=== PATIENT | female | born 1950 | race Hispanic/Latino ===

== ENCOUNTER 2023-03-09 15:56 | Emergency (ER) | payer OTHER ==
[2023-03-09 17:20] LABS: Absolute Lymphocytes (CBC) 1.7 K/uL (0.7-4.9); Hematocrit 38.9 % (36.0-45.0); Lymphocytes % 23.8 % (15.3-44.8); MCV 88.5 fL (80-100); Platelets 151 thou/uL (152-406)
[2023-03-09] MEDS ORDERED: Magnesium Sulfate 2gm IVPB 2 G/50 ML BAG IV ONE ×2 (17:25→19:43)
[2023-03-09 17:46] LABS: Albumin 3.4 g/dL (3.4-5.0); Potassium 3.4 mEq/L (3.5-5.1)
[2023-03-09 17:48] LABS: Magnesium 0.8 mg/dL (1.6-2.4)
--- NOTE | 2023-03-09 19:48 | ER ---
Nurse's Notes [facility] Name: Madison Ruiz Age: 72 yrs Sex: Female : 1950 Arrival Date: 03/09/2023 Time: 15:56 Bed 14 Private MD: Diagnosis: Hypomagnesemia Presentation: 03/09 16:18 Chief complaint: Patient states: Had blood work done here this morning and was called cm10 by PCP and told to come to the ED for low magnesium. Pt states that she is having some shortness of breath that got worse today. Coronavirus screen: Vaccine status: Patient reports receiving the 2nd dose of the covid vaccine. Client denies travel out of the [place] in the last 14 days. Ebola Screen: Patient denies travel to an Ebola-affected area in the 21 days before illness onset. No symptoms or risks identified at this time. Initial Sepsis Screen: Does the patient meet any 2 criteria? No. Patient's initial sepsis screen is negative. Does the patient have a suspected source of infection? No. Patient's initial sepsis screen is negative. Risk Assessment: Do you want to hurt yourself or someone else? Patient reports no desire to harm self or others. Onset of symptoms was March 09, 2023. 16:18 Method Of Arrival: Wheelchair cm10 16:18 Acuity: JAYE 3 cm10 Triage Assessment: 16:20 General: Appears in no apparent distress. comfortable, Behavior is calm, cooperative. cm10 Pain: Complains of pain in right and left knee. EENT: No deficits noted. No signs and/or symptoms were reported regarding the EENT system. Neuro: No deficits noted. Level of Consciousness is awake, alert, obeys commands, Oriented to person, place, time, situation. Cardiovascular: No deficits noted. Patient's skin is warm and dry. Respiratory: No deficits noted. Airway is patent Respiratory effort is even, unlabored, Respiratory pattern is regular, symmetrical. Historical: - Allergies: 16:20 No Known Allergies; cm10 - PMHx: 16:20 Diabetes mellitus; Hypertensive disorder; cm10 - Immunization history:: Adult Immunizations up to date. - Social history:: Smoking status: Patient denies any tobacco usage or history of. - Family history:: not pertinent. Screenin:22 [facility] ED Fall Risk Assessment (Adult) Score/Fall Risk Level 0 - 2 = Low Risk nj1 Oriented to surroundings, Maintained a safe environment, Hourly rounding (assess needs \T\ fall precautionary measures) done. Abuse screen: Denies threats or abuse. Denies injuries from another. Nutritional screening: No deficits noted. Tuberculosis screening: No symptoms or risk factors identified. Assessment: 17:21 Reassessment: Patient appears in no apparent distress at this time. Patient and/or nj1 family updated on plan of care and expected duration. Pain level reassessed. Patient is alert, oriented x 3, equal unlabored respirations, skin warm/dry/pink. 18:09 Reassessment: Patient appears in no apparent distress at this time. Patient and/or nj1 family updated on plan of care and expected duration. Pain level reassessed. Patient is alert, oriented x 3, equal unlabored respirations, skin warm/dry/pink. 19:09 Reassessment: Patient appears in no apparent distress at this time. Patient and/or nj1 family updated on plan of care and expected duration. Pain level reassessed. Patient is alert, oriented x 3, equal unlabored respirations, skin warm/dry/pink. 19:41 Reassessment: Patient appears in no apparent distress at this time. No changes from km8 previously documented assessment. Patient and/or family updated on plan of care and expected duration. Pain level reassessed. Patient is alert, oriented x 3, equal unlabored respirations, skin warm/dry/pink. General: Appears in no apparent distress. comfortable, Behavior is calm, cooperative, appropriate for age. Pain: Denies pain. Neuro: Level of Consciousness is awake, alert, obeys commands, Oriented to person, place, time, situation. Cardiovascular: Denies chest pain, shortness of breath. Respiratory: Airway is patent Respiratory effort is even, unlabored, Respiratory pattern is regular, symmetrical. 19:49 General: will d/c after magnesium IVPB is complete per MD. km8 20:00 Reassessment: Patient appears in no apparent distress at this time. No changes from km8 previously documented assessment. Patient and/or family updated on plan of care and expected duration. Pain level reassessed. Patient is alert, oriented x 3, equal unlabored respirations, skin warm/dry/pink. 21:17 Reassessment: Patient appears in no apparent distress at this time. No changes from km8 previously documented assessment. Patient and/or family updated on plan of care and expected duration. Pain level reassessed. Patient is alert, oriented x 3, equal unlabored respirations, skin warm/dry/pink. Vital Signs: 16:18 BP 166 / 70; Pulse 83; Resp 18; Temp 97.3; Pulse Ox 98% on R/A; Weight 113.4 kg; Height cm10 5 ft. 3 in. ; Pain 0/10; 18:09 BP 134 / 63; Pulse 71; Resp 16; Pulse Ox 97% on R/A; nj1 19:09 BP 134 / 61; Pulse 70; Resp 17; Pulse Ox 99% on R/A; nj1 19:46 BP 131 / 64; Pulse 69; Resp 19; Pulse Ox 99% on R/A; nj1 20:00 BP 129 / 55; Pulse 70; Resp 16; Pulse Ox 99% on R/A; km8 20:30 BP 131 / 63; Pulse 71; Resp 16; Pulse Ox 99% on R/A; km8 21:00 BP 117 / 57; Pulse 72; Resp 16; Pulse Ox 97% on R/A; km8 16:18 Body Mass Index 44.29 (113.40 kg, 160.02 cm) cm10 16:18 Pain Scale: Adult cm10 ED Course: 16:10 Patient arrived in ED. mg5 16:12 Marquis Wagner MD is Attending Physician. rt 16:20 Triage completed. cm10 16:21 Arm band placed on Patient placed in an exam room, on a stretcher. cm10 16:38 Nirali Shaw, RN is Primary Nurse. nj1 17:09 Inserted saline lock: 20 gauge in left antecubital area, using aseptic technique. aw1 17:09 Initial lab(s) drawn, by al, sent to lab. aw1 17:22 Patient has correct armband on for positive identification. Bed in low position. Call [facility] light in reach. Adult w/ patient. Provided Education on: call light, fall precautions. 19:42 Primary Nurse role handed off by Nirali Shaw, RN km8 19:42 Gloria Rogers, KIM is Primary Nurse. km8 19:42 No provider procedures requiring assistance completed. km8 19:48 Wilmar Gutierrez MD is Referral Physician. rt 21:17 IV discontinued, intact, bleeding controlled, No redness/swelling at site. Pressure km8 dressing applied. Administered Medications: 17:19 Drug: Magnesium Sulfate IVPB 2 grams IVPB once over 2 hrs Route: IVPB; Infused Over: 2 nj1 hrs; Site: left antecubital; 19:08 Follow up: Response: No adverse reaction; IV Status: Completed infusion; IV Intake: nj1 100ml 19:30 Drug: Magnesium Sulfate IVPB 2 grams IVPB once over 2 hrs Route: IVPB; Infused Over: 2 nj1 hrs; Site: left antecubital; 21:17 Follow up: Response: No adverse reaction; IV Status: Completed infusion km8 Medication: 19:42 VIS not applicable for this client. km8 Intake: 19:08 IV: 100ml; Total: 100ml. nj1 Outcome: 19:48 Discharge ordered by MD. rt 21:18 Discharged to home via wheelchair, with family, km8 21:18 Condition: good 21:18 Discharge instructions given to patient, family, Instructed on discharge instructions, follow up and referral plans. Demonstrated understanding of instructions, follow-up care, 21:18 Patient left the ED. km8 Signatures: Marquis Wagner MD MD rt Nirali Shaw RN RN nj1 Calista Galvan RN RN cm10 Romina Sung [facility] Sharmaine Villagran 5 Gloria Rogers RN RN km8
--- NOTE | 2023-03-09 19:48 | EDPHYS ---
Physician Documentation [facility] Name: Madison Ruiz Age: 72 yrs Sex: Female : 1950 Arrival Date: 03/09/2023 Time: 15:56 Bed 14 Private MD: ED Physician Marquis Wagner HPI: 03/09 17:01 This 72 yrs old Female presents to ER via Wheelchair with complaints of rt Abnormal Lab Results. 17:01 Patient presents to the ED with hypomagnesemia and outpatient labs. Patient states that rt she has had intermittent vomiting and decreased appetite over the past several months. Her automatic pattern edger ordered labs, sent her in for low magnesium levels. She does report a generalized fatigue, muscle cramping but denies other acute complaints, symptoms are moderate severity, no other aggravating or getting factors.. Historical: - Allergies: 16:20 No Known Allergies; cm10 - PMHx: 16:20 Diabetes mellitus; Hypertensive disorder; cm10 - Immunization history:: Adult Immunizations up to date. - Social history:: Smoking status: Patient denies any tobacco usage or history of. - Family history:: not pertinent. ROS: 17:01 Cardiovascular: Negative for chest pain, palpitations, and edema, Respiratory: Negative rt for shortness of breath, cough, wheezing, and pleuritic chest pain, MS/Extremity: Negative for injury and deformity, Skin: Negative for injury, rash, and discoloration, Neuro: Negative for headache, weakness, numbness, tingling, and seizure, Psych: Negative for depression, anxiety, suicide ideation, homicidal ideation, and hallucinations, 17:01 Constitutional: Positive for body aches, fatigue, 17:01 Abdomen/GI: Positive for nausea and vomiting, Negative for abdominal pain, Exam: 17:01 Constitutional: This is a well developed, well nourished patient who is awake, alert, rt and in no acute distress. Head/Face: Normocephalic, atraumatic. Chest/axilla: Normal chest wall appearance and motion. Nontender with no deformity. No lesions are appreciated. Cardiovascular: Regular rate and rhythm with a normal S1 and S2. No gallops, murmurs, or rubs. Normal PMI, no JVD. No pulse deficits. Respiratory: Lungs have equal breath sounds bilaterally, clear to auscultation and percussion. No rales, rhonchi or wheezes noted. No increased work of breathing, no retractions or nasal flaring. Abdomen/GI: Soft, non-tender, with normal bowel sounds. No distension or tympany. No guarding or rebound. No evidence of tenderness throughout. Skin: Warm, dry with normal turgor. Normal color with no rashes, no lesions, and no evidence of cellulitis. MS/ Extremity: Pulses equal, no cyanosis. Neurovascular intact. Full, normal range of motion. Neuro: Awake and alert, GCS 15, oriented to person, place, time, and situation. Cranial nerves II-XII grossly intact. Motor strength 5/5 in all extremities. Sensory grossly intact. Cerebellar exam normal. Normal gait. Psych: Awake, alert, with orientation to person, place and time. Behavior, mood, and affect are within normal limits. 18:20 ECG was reviewed by the Attending Physician. rt Vital Signs: 16:18 BP 166 / 70; Pulse 83; Resp 18; Temp 97.3; Pulse Ox 98% on R/A; Weight 113.4 kg; Height cm10 5 ft. 3 in. ; Pain 0/10; 18:09 BP 134 / 63; Pulse 71; Resp 16; Pulse Ox 97% on R/A; nj1 19:09 BP 134 / 61; Pulse 70; Resp 17; Pulse Ox 99% on R/A; nj1 19:46 BP 131 / 64; Pulse 69; Resp 19; Pulse Ox 99% on R/A; nj1 20:00 BP 129 / 55; Pulse 70; Resp 16; Pulse Ox 99% on R/A; km8 20:30 BP 131 / 63; Pulse 71; Resp 16; Pulse Ox 99% on R/A; km8 21:00 BP 117 / 57; Pulse 72; Resp 16; Pulse Ox 97% on R/A; km8 16:18 Body Mass Index 44.29 (113.40 kg, 160.02 cm) cm10 16:18 Pain Scale: Adult cm10 MDM: 16:23 Patient medically screened. rt 19:59 Differential Diagnosis Hypomagnesemia, hypokalemia. Data reviewed: vital signs, nurses rt notes, lab test result(s), EKG. Consideration of Admission/Observation Escalation of care including admission/observation considered. Strongly recommended that the patient stay for further treatment of hypo-[place] anemia, she refuses, she understands that she may not have improvement of her symptoms, also the possibility of dysrhythmia. She will follow-up closely with her automatic pattern edger, strict return precautions were discussed if she changes her mind or if she has worsening symptoms. She does have decision-making capacity. Management of patient was discussed with the following: Radio Frequency Design Engineer: Discussed with the patient's automatic pattern edger, will follow-up patient for labs on Sunday. I considered the following discharge prescriptions or medication management in the emergency department Medications were administered in the Emergency Department. See MAR. Care significantly affected by the following chronic conditions: CKD. Counseling: I had a detailed discussion with the patient and/or guardian regarding the historical points, exam findings, and any diagnostic results supporting the discharge/admit diagnosis, lab results, the need for further work-up and treatment in the hospital. 03/09 16:35 Order name: CBC with Diff; Complete Time: 17:59 rt 03/09 16:35 Order name: CMP; Complete Time: 17:59 rt 03/09 16:35 Order name: Magnesium; Complete Time: 17:59 rt 03/09 17:59 Order name: EKG; Complete Time: 18:33 rt 03/09 17:26 Order name: Labs - recollect needed: LAVENDER TOP ONLY - HEMOLYZED; Complete Time: 17:51hb 03/09 17:59 Order name: EKG - Nurse/Tech; Complete Time: 18:34 rt EC:20 Rate is 78 beats/min. Rhythm is regular, Normal Sinus Rhythm with No ectopy. QRS [place] rt is Normal. ND interval is normal. QRS interval is normal. QT interval is normal. No Q waves. T waves are Inverted in lead III. No ST changes noted. Interpreted by me. Administered Medications: 17:19 Drug: Magnesium Sulfate IVPB 2 grams IVPB once over 2 hrs Route: IVPB; Infused Over: 2 nj1 hrs; Site: left antecubital; 19:08 Follow up: Response: No adverse reaction; IV Status: Completed infusion; IV Intake: nj1 100ml 19:30 Drug: Magnesium Sulfate IVPB 2 grams IVPB once over 2 hrs Route: IVPB; Infused Over: 2 nj1 hrs; Site: left antecubital; 21:17 Follow up: Response: No adverse reaction; IV Status: Completed infusion km8 Disposition Summary: 03/09/23 19:48 Discharge Ordered Notes: Location: Home rt Problem: new rt Symptoms: have improved rt Condition: Fair rt Diagnosis - Hypomagnesemia rt Followup: rt - With: Wilmar Gutierrez MD - When: 2 - 3 days - Reason: Discharge Instructions: - Discharge Summary Sheet rt - Hypomagnesemia rt Forms: - Medication Reconciliation Form rt - Thank You Letter rt - Antibiotic Education rt - Prescription Opioid Use rt - Patient Portal Instructions rt - Leadership Thank You Letter rt Signatures: Dispatcher [employer] EDMarti Rene RN RN Marquis Wagner MD MD rt Nirali Shaw RN RN nj1 Calista Galvan RN RN cm10 Gloria Rogers RN km8
[2023-03-09 21:36] VITALS: TEMP 97.3
[2023-03-09 21:48] VITALS: BP 117/57; O2SAT 97
--- NOTE | 2023-03-13 13:55 | EKG ---
Test Date: 2023-03-09 Test Time: 18:11:15 Lead Mason Tender: ESTER MEASUREMENT RESULTS: Intervals: Rate: 78 AK: 162 QRSD: 88 QT: 408 QTc: 465 [place]: P: 6 AK: 162 QRS: 39 T: -10 INTERPRETIVE STATEMENTS: Normal sinus rhythm Possible Inferior infarct, age undetermined Anterior infarct, age undetermined Abnormal ECG No previous ECG available for comparison Electronically Signed On 03-13-23 13:43:20 EDUCATION DEPARTMENT REGISTRAR by Jaden Kimball
== END 2023-03-09 21:18 | disposition home or self-care (01) ==
LOC: ER 15:56
DX: E83.42 Hypomagnesemia (principal); E11.9 Type 2 diabetes mellitus without complications; I10 Essential (primary) hypertension
CPT/HCPCS: 96365; 93005; 85025; 36415; 83735; 80053; 99284; 96366; J3475 ×2

== ENCOUNTER 2024-02-18 11:55 | Day surgery (SDC) | payer OTHER ==
[2024-02-04 10:19] LABS: Absolute Basophils 0.1 K/uL (0-0.5); Absolute Eosinophils 0.3 K/uL (0-0.5); Absolute Lymphocytes (CBC) 2.1 K/uL (0.7-4.9); Absolute Monocytes 0.7 K/uL (0.1-1.3); Absolute Neutrophil 7.8 K/uL (1.8-8.0); Basophils % 0.9 % (0-1.3); Eosinophils % 3.1 % (0-4.4); Hematocrit 39.7 % (36.0-45.0); Hemoglobin 13.1 g/dL (12.0-15.0); Lymphocytes % 18.7 % (15.3-44.8); MCH 30.2 pg (27.0-35.0); MCV 91.4 fL (80-100); MPV 7.7 fL (7.6-11.3); Monocytes % 6.4 % (3.3-12.3); Neutrophils % 70.9 % (41.7-73.7); Nucleated Red Blood Cells % 0.2 % (0-0); Platelets 192 thou/uL (152-406); RBC Red Blood Cell Count 4.34 M/uL (3.86-4.86); Red Cell Distribution Width 13.7 % (12.1-15.2)
[2024-02-04 10:23] LABS: PT Prothrombin Time 11.7 SECONDS (9.4-12.5); PTT, Activated Partial Thromb 30.5 SECONDS (24.3-36.9); Protime INR 1.05
[2024-02-04 10:31] LABS: Anion Gap 10.1 mEq/L (5.0-15.0); Potassium 3.1 mEq/L (3.5-5.1)
--- NOTE | 2024-02-04 12:13 | EKG ---
Test Date: 2024-02-04 Test Time: 11:31:08 Compliance Engineer: GREYSON MEASUREMENT RESULTS: Intervals: Rate: 74 [place]: 154 QRSD: 82 QT: 402 QTc: 446 [place]: P: 17 [place]: 154 QRS: -38 T: 26 INTERPRETIVE STATEMENTS: Normal sinus rhythm Left axis deviation Inferior infarct, age undetermined Anterior infarct, age undetermined Abnormal ECG Compared to ECG 03/09/2023 18:11:15 Left-axis deviation now present Myocardial infarct finding still present Electronically Signed On 02-04-24 12:12:40 OUTBOARD MOTOR TESTER by Juanpablo Acuña
--- NOTE | 2024-02-04 13:12 | RAD REPORT ---
EXAMINATION: ONE VIEW CHEST XR CLINICAL INDICATION: Female, 73 years old.,PREOP TECHNIQUE: Frontal chest projection is submitted. Examination is limited by patient positioning and t echnique. COMPARISON: 04/30/2023 FINDINGS: The lungs are well inflated. Stable chronic interstitial changes. No new focal airspace opacities. N o pneumothorax or sizable effusion. The heart is normal in size. Mediastinal contours are unremarkable. IMPRESSION: No acute intrathoracic abnormalities. Stable chronic interstitial changes, may represent sequelae of lung fibrosis or COPD.
[2024-02-18] MEDS ORDERED: HEPA 1000U/500MLS 2,000 UNIT/1,000 ML BAG IV ONE (13:16)
[2024-02-18] MEDS ORDERED: MIDAZOLAM HCL 2 MG/2 ML INJ ONE (13:16)
[2024-02-18] MEDS ORDERED: VERAPAMIL HCL 10 MG/4 ML VIAL IV ONE (13:16)
[2024-02-18] MEDS ORDERED: HEPARIN 10,000 UNIT/10 ML VIAL IV ONE (13:16)
[2024-02-18] MEDS ORDERED: ATROPINE SULF 1 MG/10 ML SYR IV ONE (13:16)
[2024-02-18] MEDS ORDERED: LIDOCAINE 1% 20 ML MDV ONE (13:16)
[2024-02-18] MEDS ORDERED: FENTANYL CITR 100 MCG/2 ML ONE (13:17)
[2024-02-18] MEDS ORDERED: TICAGRELOR 90 MG TABLET PO ONE (13:17)
[2024-02-18] MEDS ORDERED: ASPIRIN 325 MG TAB ONE (13:17)
[2024-02-18] MEDS ORDERED: CLOPIDOGREL 75 MG TABLET ONE (13:17)
[2024-02-18] MEDS ORDERED: HEPARIN 5000 UNIT/ML 1 ML VIAL ONE (13:17)
[2024-02-18] MEDS: NA CHLORIDE 0.9% 500 ML ONE (15:17)
[2024-02-18] MEDS: ACETAMINOPHEN 325 MG TABLET ONE (15:55)
[2024-02-18 16:23] VITALS: TEMP 98.6
[2024-02-18 18:02] VITALS: BP 148/76; O2SAT 96
== END 2024-02-18 17:11 | disposition home or self-care (01) ==
LOC: CCL 11:55
PROVIDERS: ADMIT Internal Medicine; ATTEND Internal Medicine
DX: I25.10 Atherosclerotic heart disease of native coronary artery without angina pectoris (principal); I27.20 Pulmonary hypertension, unspecified; I35.1 Nonrheumatic aortic (valve) insufficiency; I10 Essential (primary) hypertension; E78.5 Hyperlipidemia, unspecified; E11.9 Type 2 diabetes mellitus without complications; Z79.899 Other long term (current) drug therapy
CPT/HCPCS: 93005; 85025; 80048; 36415; 85610; 82947; 85730; 71045; 93460; 76937; C1893; Q9966; J1644; J2003; J2250; J3010; J7040; 99152; 99153; J0461

== ENCOUNTER 2024-07-14 15:55 | Inpatient (IN) | payer OTHER ==
[2024-07-14 16:36] LABS: Absolute Basophils 0.1 K/uL (0-0.5); Absolute Eosinophils 0.6 K/uL (0-0.5); Absolute Lymphocytes (CBC) 1.1 K/uL (0.7-4.9); Absolute Monocytes 0.6 K/uL (0.1-1.3); Absolute Neutrophil 5.9 K/uL (1.8-8.0); Eosinophils % 6.8 % (0-4.4); Hematocrit 33.3 % (36.0-45.0); Hemoglobin 10.8 g/dL (12.0-15.0); Lymphocytes % 12.9 % (15.3-44.8); MCH 28.2 pg (27.0-35.0); MCHC 32.6 g/dL (32.0-36.0); MCV 86.7 fL (80-100); MPV 7.4 fL (7.6-11.3); Neutrophils % 72.3 % (41.7-73.7); Nucleated Red Blood Cells % 0.1 % (0-0); Platelets 192 thou/uL (152-406); RBC Red Blood Cell Count 3.84 M/uL (3.86-4.86); Red Cell Distribution Width 16.3 % (12.1-15.2)
[2024-07-14 16:40] LABS: PT Prothrombin Time 12.1 SECONDS (10-13.0); PTT, Activated Partial Thromb 29.8 SECONDS (27.2-37.4); Protime INR 1.06
[2024-07-14 16:57] LABS: AST/SGOT 16 U/L (15-37); Albumin 2.2 g/dL (3.4-5.0); Albumin/Globulin Ratio 0.4 (1.1-1.8); Alkaline Phosphatase 142 U/L (45-117); BUN Blood Urea Nitrogen 50 mg/dL (7-18); Bicarbonate 24 mEq/L (21-32); Bilirubin Direct 0.2 mg/dL (0-0.2); Bilirubin Indirect, Calculated 0.2 mg/dL (0.2-0.8); Bilirubin Total 0.4 mg/dL (0.2-1.0); Globulin 5.3 g/dL (2.3-3.5); Glomerular Filtration Rate 18 ml/min (=/>90); Glucose Level 176 mg/dL (74-106); NT PRO-BNP 2485 pg/mL (<125); Protein, Total 7.5 g/dL (6.4-8.2); Sodium Level 138 mEq/L (136-145); Troponin High Sensitivity 17.1 pg/mL (<58.9)
[2024-07-14 16:59] LABS: ALT/SGPT < 14 U/L (13-56)
[2024-07-14] MEDS ORDERED: FUROSEMIDE 40 MG/4 ML VIAL ONE (17:07)
[2024-07-14] MEDS ORDERED: SOD POLYSTYREN SUL 15 GM/60 ML UCUP ONE (17:38)
--- NOTE | 2024-07-14 17:49 | RAD REPORT ---
EXAMINATION: ONE VIEW CHEST XR CLINICAL INDICATION: Female, 74 years old.,DYSPNEA TECHNIQUE: Frontal chest projection is submitted. Examination is limited by patient positioning and t echnique. COMPARISON: 02/04/2024 FINDINGS: Progressive patchy central predominant airspace opacities with interstitial thickening. Decreased ins piratory effort somewhat limits evaluation. No pneumothorax or sizable effusion. Progressive cardiomegaly. Mediastinal contours are unremarkable. IMPRESSION: Progressive findings concerning for pulmonary edema. Underlying pneumonia cannot be entirely excluded .
--- NOTE | 2024-07-14 17:57 | EDPHYS ---
Physician Documentation [facility] Name: Madison Ruiz Age: 74 yrs Sex: Female : 1950 Arrival Date: 07/14/2024 Time: 15:55 Bed 4 Private MD: ED Physician Daniel Dozier HPI: 07/14 16:36 This 74 yrs old Female presents to ER via Wheelchair with complaints of rn Breathing Difficulty, Edema - swelling. 16:36 The patient has shortness of breath at rest, with light activity. Onset: The rn symptoms/episode began/occurred 2 week(s) ago. Duration: The symptoms are intermittent. The patient's shortness of breath is aggravated by exertion, light activity, talking, walking. Associated signs and symptoms: Pertinent positives: non-productive cough, Pertinent negatives: fever, hemoptysis. Severity of symptoms: At their worst the symptoms were moderate in the emergency department the symptoms are unchanged. The patient has experienced similar episodes in the past. Patient sent in by PCP today for low oxygen and swelling of lower extremities. Patient with a history of pulmonary fibrosis. No known history of atrial fibrillation or congestive heart failure. Patient reports worsening of symptoms over the last 2 weeks with 6-1/2 pound weight gain over that time. PCP prescribed Lasix 20 mg once daily and patient states that she does not feel like she is responding to the Lasix. Denies any fever or chills or infectious symptoms. No chest pain. Worse when she exerts herself.. Historical: - Allergies: 16:15 No Known Allergies; iw - Home Meds: 16:15 gabapentin 300 mg oral capsule 2 times per day [Active]; Lasix 20 mg Oral tablet daily iw [Active]; carvedilol 12.5 mg oral tablet 2 times per day [Active]; losartan 50 mg oral tablet daily [Active]; levothyroxine 88 mcg capsule daily [Active]; Tradjenta 5 mg oral tablet daily [Active]; prednisone 5 mg Oral tablet daily [Active]; clopidogrel 75 mg oral tablet daily [Active]; amlodipine 5 mg tablet daily [Active]; pantoprazole 40 mg oral tablet, delayed release (enteric coated) daily [Active]; aspirin 81 mg Oral capsule daily [Active]; amiloride 5 mg oral tablet daily [Active]; - PMHx: 16:14 diabetes mellitus; Hypertensive disorder; iw - Immunization history:: Adult Immunizations up to date. - Infectious Disease History:: Denies. - Social history:: Smoking status: Patient denies any tobacco usage or history of. - Family history:: not pertinent. - Hospitalizations: : No recent hospitalization is reported. 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 Cardiovascular: Regular rate and rhythm, no JVD. No pulse deficits. Respiratory: Moderate tachypnea, crackles bilaterally MS/ Extremity: Pulses equal, no cyanosis. Neurovascular intact. Full, normal range of motion. Equal circumference. 3+ edema bilateral lower extremity Neuro: Awake and alert, GCS 15 17:38 ECG was reviewed by the Attending Physician. rn Vital Signs: 16:11 BP 143 / 111; Pulse 74; Resp 20 S; Pulse Ox 99% on 4 lpm NC; Weight 108.41 kg; Height 5 iw ft. 3 in. ; Pain 0/10; 18:40 BP 117 / 58; Pulse 77; Resp 20 S; Temp 97.5(TE); Pulse Ox 98% on 3 lpm NC; iw 19:18 BP 160 / 65; Pulse 79; Resp 23; Pulse Ox 96% on 4 lpm NC; al5 20:25 BP 138 / 71; Pulse 67; Resp 18; Pulse Ox 100% on 4 lpm NC; al5 21:00 BP 135 / 44; Pulse 83; Resp 19; Pulse Ox 96% on 4 lpm NC; al5 16:11 Body Mass Index 42.34 (108.41 kg, 160.02 cm) iw 16:11 Pain Scale: Adult iw MDM: 16:00 Medical Screening Exam initiated rn 17:55 Differential diagnosis: Anemia Anxiety Reaction CHF exacerbation, Myocardial Infarction rn pneumonia, Pneumothorax pulmonary edema. Data reviewed: vital signs, nurses notes, lab test result(s), EKG, radiologic studies, plain films, and as a result, I will admit patient. Consideration of Admission/Observation Patient was admitted/placed on observation. Escalation of care including admission/observation considered. Counseling: I had a detailed discussion with the patient and/or guardian regarding the historical points, exam findings, and any diagnostic results supporting the discharge/admit diagnosis, lab results, radiology results, the need for further work-up and treatment in the hospital. Response to treatment: the patient's symptoms have mildly improved after treatment. ED course: Patient with 3+ edema, elevated BNP and pulmonary edema in the setting of chronic kidney disease. Given 40 mg of Lasix with some improvement in respiratory effort. Will admit to hospitalist service for further evaluation.. 07/14 16:07 Order name: BMP; Complete Time: 17:05 07/14 16:07 Order name: Blood Culture Adult (2) 07/14 16:07 Order name: CBC with Diff; Complete Time: 16:49 rn 07/14 16:07 Order name: Hepatic Function; Complete Time: 17:05 rn 07/14 16:07 Order name: NT PRO-BNP; Complete Time: 17:05 rn 07/14 16:07 Order name: PT-INR; Complete Time: 16:49 rn 07/14 16:07 Order name: Ptt, Activated; Complete Time: 16:49 rn 07/14 16:07 Order name: Troponin HS; Complete Time: 17:05 rn 07/14 17:53 Order name: BMP rn 07/14 19:41 Order name: CBC with Automated Diff EDSD 07/14 19:41 Order name: Comprehensive Metabolic Panel EDSD 07/14 19:41 Order name: Magnesium EDMS 07/14 19:41 Order name: Lipid Profile EDMS 07/14 19:41 Order name: Lipid Profile EDMS 07/14 19:41 Order name: Troponin High Sensitivity EDMS 07/14 19:41 Order name: Troponin High Sensitivity EDMS 07/14 19:41 Order name: Troponin High Sensitivity EDMS 07/14 19:41 Order name: Troponin High Sensitivity EDMS 07/14 19:41 Order name: Troponin High Sensitivity EDMS 07/14 19:46 Order name: Potassium EDMS 07/14 16:07 Order name: XRAY CXR (1 view); Complete Time: 17:49 rn 07/14 19:41 Order name: Echo with Doppler EDSD 07/14 19:41 Order name: CONS Physician Consult EDSD 07/14 16:07 Order name: Cardiac monitoring; Complete Time: 16:29 rn 07/14 16:07 Order name: EKG - Nurse/Tech; Complete Time: 16:29 rn 07/14 16:07 Order name: IV Saline Lock; Complete Time: 16:29 rn 07/14 16:07 Order name: Labs collected and sent; Complete Time: 16:29 rn 07/14 16:07 Order name: O2 Per Protocol; Complete Time: 16:29 rn 07/14 16:07 Order name: O2 Sat Monitoring; Complete Time: 16:29 rn EC:38 Rate is 75 beats/min. Rhythm is regular. WI interval is normal. QRS interval is normal. rn QT interval is normal. No Q waves. T waves are Normal. No ST changes noted. Clinical impression: NSR w/ Non-specific ST/T Changes. Interpreted by me. Reviewed by me. Administered Medications: 17:20 Drug: Furosemide IVP 40 mg IVP once; give over 2 minutes Route: IVP; Site: left jb4 antecubital; 20:09 Follow up: Response: No adverse reaction al5 18:40 Drug: Kayexalate PO 30 grams PO once Route: PO; iw 20:09 Follow up: Response: No adverse reaction al5 Disposition Summary: 07/14/24 17:56 Hospitalization Ordered Notes: Hospitalization Status: Inpatient Admission rn Provider: Julio Cesar Perez rn Location: Telemetry/[facility] (Inpatient) rn Condition: Stable rn Problem: an ongoing problem rn Symptoms: have improved rn Bed/Room Type: Standard rn Room Assignment: 218(07/14/24 20:22) al5 Diagnosis - Acute pulmonary edema rn - Hypoxemia rn Forms: - Medication Reconciliation Form rn - SBAR form rn - Leadership Thank You Letter rn Signatures: Dispatcher Halley Boyle RN RN iw Daniel Dozier MD MD rn Bryson, James, RN RN jb4 Aishwarya Britton RN RN al5 Corrections: (The following items were deleted from the chart) 20:22 17:56 rn al5
--- NOTE | 2024-07-14 17:57 | ER ---
Nurse's Notes [facility] Name: Madison Ruiz Age: 74 yrs Sex: Female : 1950 Arrival Date: 07/14/2024 Time: 15:55 Bed 4 Private MD: Diagnosis: Acute pulmonary edema;Hypoxemia Presentation: 07/14 16:11 Chief complaint: Patient states: SOB on exertion, had low O2 in PCP office, hx of iw pulmonary fibrosis , states her O2 drops on exertion normally, she has been treated recently for a URI , completed abx, has had increased swelling in her legs X 1 week, they started her on lasix. Coronavirus screen: Client presents with at least one sign or symptom that may indicate coronavirus-19. Ebola Screen: No symptoms or risks identified at this time. Initial Sepsis Screen: Does the patient meet any 2 criteria? RR > 20 per min. Does the patient have a suspected source of infection? No. Patient's initial sepsis screen is negative. Risk Assessment: Do you want to hurt yourself or someone else? Patient reports no desire to harm self or others. 16:11 Method Of Arrival: Wheelchair iw 16:11 Acuity: JAYE 2 iw 19:22 Onset of symptoms was July 07, 2024. al5 Triage Assessment: 19:23 Respiratory: Onset: The symptoms/episode began/occurred week ago. Respiratory: Reports al5 shortness of breath on exertion initially the patient has moderate shortness of breath. Historical: - Allergies: 16:15 No Known Allergies; iw - Home Meds: 16:15 gabapentin 300 mg oral capsule 2 times per day [Active]; Lasix 20 mg Oral tablet daily iw [Active]; carvedilol 12.5 mg oral tablet 2 times per day [Active]; losartan 50 mg oral tablet daily [Active]; levothyroxine 88 mcg capsule daily [Active]; Tradjenta 5 mg oral tablet daily [Active]; prednisone 5 mg Oral tablet daily [Active]; clopidogrel 75 mg oral tablet daily [Active]; amlodipine 5 mg tablet daily [Active]; pantoprazole 40 mg oral tablet, delayed release (enteric coated) daily [Active]; aspirin 81 mg Oral capsule daily [Active]; amiloride 5 mg oral tablet daily [Active]; - PMHx: 16:14 diabetes mellitus; Hypertensive disorder; iw - Immunization history:: Adult Immunizations up to date. - Infectious Disease History:: Denies. - Social history:: Smoking status: Patient denies any tobacco usage or history of. - Family history:: not pertinent. - Hospitalizations: : No recent hospitalization is reported. Screenin:41 [facility] ED Fall Risk Assessment (Adult) History of falling in the last 3 months, iw including since admission No falls in past 3 months (0 pts) Confusion or Disorientation No (0 pts) Intoxicated or Sedated No (0 pts) Impaired Gait No (0 pts) Mobility Assist Device Used Yes (1 pt) Altered Elimination No (0 pt) Score/Fall Risk Level 0 - 2 = Low Risk Oriented to surroundings, Maintained a safe environment. Abuse screen: Denies threats or abuse. Nutritional screening: No deficits noted. Tuberculosis screening: No symptoms or risk factors identified. Assessment: 16:20 General: Appears in no apparent distress. Behavior is calm, cooperative. Pain: Denies iw pain. Neuro: Level of Consciousness is awake, alert, obeys commands, Oriented to person, place, time, situation, Moves all extremities. Cardiovascular: Rhythm is regular. Cardiovascular: Edema is 3+ to left ankle, left foot, left toes, right ankle, right foot and right toes pitting to left foot. Respiratory: Airway is patent Respiratory effort is even, labored. Derm: Skin is pale. Musculoskeletal: Range of motion: intact in all extremities. 18:00 Reassessment: Patient appears in no apparent distress at this time. Patient and/or iw family updated on plan of care and expected duration. Pain level reassessed. Patient is alert, oriented x 3, equal unlabored respirations, skin warm/dry/pink. Patient states symptoms have improved. 19:18 General: Appears in no apparent distress. comfortable, Behavior is calm, cooperative. al5 Pain: Denies pain. Neuro: Level of Consciousness is awake, alert, obeys commands, Oriented to person, place, time, situation. Respiratory: Airway is patent Respiratory effort is even, labored, Respiratory pattern is regular, symmetrical, Breath sounds with crackles bilaterally. GI: Abdomen is non-distended, obese. : No signs and/or symptoms were reported regarding the genitourinary system. EENT: No signs and/or symptoms were reported regarding the EENT system. Derm: Skin is intact, is healthy with good turgor, Skin is pink, warm \T\ dry. normal. Musculoskeletal: Range of motion: intact in all extremities, Swelling present in right toes and right foot and right ankle and left toes and left foot and left ankle. 20:25 Reassessment: Patient appears in no apparent distress at this time. No changes from al5 previously documented assessment. Patient and/or family updated on plan of care and expected duration. Pain level reassessed. Patient is alert, oriented x 3, equal unlabored respirations, skin warm/dry/pink. 21:32 Reassessment: Patient appears in no apparent distress at this time. No changes from al5 previously documented assessment. Patient and/or family updated on plan of care and expected duration. Pain level reassessed. Patient is alert, oriented x 3, equal unlabored respirations, skin warm/dry/pink. Vital Signs: 16:11 BP 143 / 111; Pulse 74; Resp 20 S; Pulse Ox 99% on 4 lpm NC; Weight 108.41 kg; Height 5 iw ft. 3 in. ; Pain 0/10; 18:40 BP 117 / 58; Pulse 77; Resp 20 S; Temp 97.5(TE); Pulse Ox 98% on 3 lpm NC; iw 19:18 BP 160 / 65; Pulse 79; Resp 23; Pulse Ox 96% on 4 lpm NC; al5 20:25 BP 138 / 71; Pulse 67; Resp 18; Pulse Ox 100% on 4 lpm NC; al5 21:00 BP 135 / 44; Pulse 83; Resp 19; Pulse Ox 96% on 4 lpm NC; al5 16:11 Body Mass Index 42.34 (108.41 kg, 160.02 cm) iw 16:11 Pain Scale: Adult iw ED Course: 15:58 Patient arrived in ED. al6 16:00 Daniel Dozier MD is Attending Physician. rn 16:03 Halley Stockton RN is Primary Nurse. iw 16:14 Triage completed. iw 16:20 Arm band placed on. iw 16:22 Inserted saline lock: 18 gauge in left antecubital area, using aseptic technique. Blood jb4 collected. 16:22 No provider procedures requiring assistance completed. jb4 16:29 BMP Sent. jb4 16:29 Blood Culture Adult (2) Sent. jb4 16:31 CBC with Diff Sent. jb4 16:31 Hepatic Function Sent. jb4 16:31 PT-INR Sent. jb4 16:31 Ptt, Activated Sent. jb4 16:31 Troponin HS Sent. jb4 16:31 NT PRO-BNP Sent. jb4 16:36 XRAY CXR (1 view) In Process Unspecified. EDMS 17:56 Julio Cesar Perez MD is Hospitalizing Provider. rn 19:22 Patient has correct armband on for positive identification. Bed in low position. Call al5 light in reach. Side rails up X2. Provided Education on: need for admission. 21:32 Patient admitted, IV remains in place. al5 Administered Medications: 17:20 Drug: Furosemide IVP 40 mg IVP once; give over 2 minutes Route: IVP; Site: left jb4 antecubital; 20:09 Follow up: Response: No adverse reaction al5 18:40 Drug: Kayexalate PO 30 grams PO once Route: PO; iw 20:09 Follow up: Response: No adverse reaction al5 Medication: 16:21 VIS not applicable for this client. iw Outcome: 17:56 Decision to Hospitalize by Provider. rn 21:32 Admitted to Med/surg accompanied by tech, via stretcher, room 218, with oxygen, with al5 chart, 21:32 Condition: stable 21:32 Instructed on the need for admit, 21:44 Patient left the ED. al5 Signatures: Dispatcher [employer] EDMS Halley Stockton RN RN iw Nieto, Roman, MD MD rn Bryson, James, RN RN jb4 Aishwarya Britton RN RN al5 Vidhi Romo al6 Corrections: (The following items were deleted from the chart) 18:58 18:40 BP 117 / 58; Pulse 77bpm; Resp 20bpm; Spontaneous; Pulse Ox 98% 3 lpm Nasal iw Cannula; iw 20:25 19:18 BP 160 / 65; Pulse 79bpm; Resp 23bpm; Pulse Ox 96% RA; al5 al5 20:25 20:25 BP 138 / 71; Pulse 67bpm; Resp 16bpm; Pulse Ox 100% 4 lpm Nasal Cannula; al5 al5
[2024-07-14 18:33] LABS: Anion Gap 8.2 mEq/L (5.0-15.0)
[2024-07-14 18:35] LABS: Potassium 6.2 mEq/L (3.5-5.1)
[2024-07-14] MEDS ORDERED: ZOLPIDEM TARTRATE 5 MG TABLET PO PRN (19:31)
--- NOTE | 2024-07-14 19:48 | P.HP ---
Patient History Date of Service: 07/15/24 Reason for admission: CHF History of Present Illness: 74-year-old female with a past medical history of type 2 diabetes, hypertension, thyroid disease presenting with new onset swelling of the legs and shortness of breath found to have CHF exacerbation. She states her feet have never swelled like this before. She had a recent stent placed on May [address] Kimball in [place]. She denies fevers, chills. She denies any drug use. Allergies No Known Allergies Allergy (Verified 02/04/24 10:00) Home Medications: Albuterol Inhaler [Ventolin Inhaler] 2 puff IH Q6H PRN 07/14/24 Amiloride HCl [Midamor] 5 mg PO DAILY 07/14/24 Amlodipine [Norvasc] 5 mg PO DAILY 07/14/24 Aspirin Chewable [Aspirin Chewable*] 81 mg PO DAILY 07/14/24 Atorvastatin Calcium [Lipitor] 40 mg PO BEDTIME 07/14/24 Carvedilol [Coreg] 12.5 mg PO BID 07/14/24 Clopidogrel Bisulfate [Plavix] 75 mg PO DAILY 07/14/24 Fluticasone Propion/Salmeterol [Advair 250-50 Diskus] 1 each IH BID PRN 07/14/24 Furosemide [Lasix] 20 mg PO DAILY 07/14/24 Gabapentin 300 mg PO BID 07/14/24 Levothyroxine [Synthroid] 88 mcg PO [id number] 07/14/24 Linagliptin [Tradjenta] 5 mg PO DAILY 07/14/24 Losartan Potassium [Cozaar] 50 mg PO DAILY 07/14/24 Pantoprazole [Protonix Tab] 40 mg PO DAILY 07/14/24 predniSONE [Deltasone] 5 mg PO DAILY 07/14/24 - Past Medical/Surgical History Diabetic: Yes -: DMII -: HTN -: Joint pain to Jez Knees -: appendectomy -: cholecsytectomy - Family History Mother -: Hypertension Father -: Lung disease - Social History Alcohol use: No Review of Systems General: Unremarkable Eyes: Unremarkable ENT: Unremarkable Respiratory: Shortness of Breath Cardiovascular: Unremarkable Gastrointestinal: Unremarkable Genitourinary: Unremarkable Musculoskeletal: Pedal edema Integumentary: Unremarkable Neurological: Unremarkable Physical Examination - Physical Exam General: Alert, In no apparent distress HEENT: Atraumatic, Normocephalic Neck: Supple Respiratory: Clear to auscultation bilaterally Cardiovascular: Edema Capillary refill: <2 Seconds Gastrointestinal: Normal bowel sounds Musculoskeletal: No clubbing Integumentary: No rashes Neurological: Normal gait, Normal speech Lymphatics: No axilla or inguinal lymphadenopathy - Studies Laboratory Data (last 24 hrs) 07/14/24 07/14/24 07/14/24 18:00 16:22 16:22 WBC 8.20 Hgb 10.8 L Hct 33.3 L Plt Count 192 PT 12.1 INR 1.06 APTT 29.8 Sodium 138 Potassium 6.2 H* BUN 51 H Creatinine 2.64 H Glucose 169 H Total Bilirubin AST ALT Alkaline Phosphatase 07/14/24 16:22 WBC Hgb Hct Plt Count PT INR APTT Sodium 138 Potassium 6.0 H BUN 50 H Creatinine 2.69 H Glucose 176 H Total Bilirubin 0.4 AST 16 ALT < 14 Alkaline Phosphatase 142 H Assessment and Plan - Plan CHF exacerbation Acute kidney Injury Urinary tract infection Hyperkalemia Anemia Admit to floor Daily weights, fluid restriction to 2 L, low-sodium diet Continue IV Lasix, beta-kathleen, strict I's and O's Start Rocephin, urine culture pending As needed breathing treatments Kayexalate as needed, s/p insulin and D50 Potassium level improving Obtain renal ultrasound DVT prophylaxis with heparin - Advance Directives Does patient have a Living Will: No Does patient have a Durable POA for Healthcare: No
[2024-07-14 22:51] VITALS: BMI 43.4
[2024-07-14 23:22] LABS: Magnesium 1.6 mg/dL (1.6-2.4); Potassium 5.3 mEq/L (3.5-5.1)
[2024-07-14 23:34] LABS: Sqamous Epithelial <5 /HPF (None Seen); Urine Bacteria <20 /HPF (<20); Urine Bilirubin NEGATIVE (Negative); Urine Blood 3+ (OVER) (Negative); Urine Clarity Extremely Turbid (Clear); Urine Color Light-Brown (Yellow); Urine Crystals Unidentified Few /HPF (None Seen); Urine Culture Reflex Order REFLEXED; Urine Glucose NEGATIVE (Negative); Urine Ketones NEGATIVE (Negative); Urine Microscopic Reflex YN ORDER UMIC; Urine Nitrite NEGATIVE (Negative); Urine Protein 2+ (Negative); Urine RBC >50 /HPF (None Seen); Urine Urobilinogen Normal (Normal)
[2024-07-14] MEDS: IPRATROPIUM BROM 0.5MG/2.5ML NEB SCH (23:50)
[2024-07-15] MEDS: ALBUTEROL 2.5 MG/3 ML NEB SOL NEB SCH (00:10)
[2024-07-15] MEDS: FUROSEMIDE 40 MG/4 ML VIAL IV SCH (00:19)
[2024-07-15] MEDS: HEPARIN 5000 UNIT/ML 1 ML VIAL SQ SCH (00:21)
[2024-07-15] MEDS: METHYLPREDNISOLONE 40 MG INJ IV SCH (01:02)
[2024-07-15] MEDS: ONDANSETRON 4 MG/2 ML VIAL IV PRN (01:57)
[2024-07-15 05:53] LABS: Absolute Basophils 0.1 K/uL (0-0.5); Absolute Lymphocytes (CBC) 0.3 K/uL (0.7-4.9); Absolute Monocytes 0.2 K/uL (0.1-1.3); Absolute Neutrophil 10.1 K/uL (1.8-8.0); Basophils % 0.6 % (0-1.3); Eosinophils % 0.2 % (0-4.4); Hematocrit 33.9 % (36.0-45.0); Hemoglobin 10.9 g/dL (12.0-15.0); Lymphocytes % 2.7 % (15.3-44.8); MCH 28.3 pg (27.0-35.0); MCHC 32.2 g/dL (32.0-36.0); MCV 87.7 fL (80-100); MPV 7.6 fL (7.6-11.3); Neutrophils % 94.5 % (41.7-73.7); Platelets 179 thou/uL (152-406); RBC Red Blood Cell Count 3.86 M/uL (3.86-4.86); Red Cell Distribution Width 15.8 % (12.1-15.2)
[2024-07-15 06:16] LABS: ALT/SGPT < 14 U/L (13-56); AST/SGOT 20 U/L (15-37); Albumin 2.1 g/dL (3.4-5.0); Albumin/Globulin Ratio 0.4 (1.1-1.8); Alkaline Phosphatase 138 U/L (45-117); Anion Gap 12.1 mEq/L (5.0-15.0); BUN Blood Urea Nitrogen 50 mg/dL (7-18); Bicarbonate 23 mEq/L (21-32); Bilirubin Total 0.5 mg/dL (0.2-1.0); Globulin 5.3 g/dL (2.3-3.5); Glomerular Filtration Rate 18 ml/min (=/>90); Glucose Level 208 mg/dL (74-106); HDL Cholesterol 64 mg/dL (40-60); LDL Cholesterol, Calculated 42 mg/dL (<130); LDL Cholesterol,Calc NonReport 42; Protein, Total 7.4 g/dL (6.4-8.2); Sodium Level 139 mEq/L (136-145)
[2024-07-15 06:17] LABS: Potassium 6.1 mEq/L (3.5-5.1)
[2024-07-15 06:18] LABS: Troponin High Sensitivity 70.2 pg/mL (<58.9)
[2024-07-15] MEDS: carvediloL 6.25 MG TAB PO SCH ×2 (07:56→21:09)
[2024-07-15] MEDS: PNEUMOCOCCAL VACCINE 0.5 ML IMVAC ONE (08:00)
[2024-07-15] MEDS: SOD POLYSTYREN SUL 15 GM/60 ML UCUP PO ONE (09:15)
[2024-07-15] MEDS: PANTOPRAZOLE 40MG TABLET PO SCH (09:16)
[2024-07-15] MEDS: CLOPIDOGREL 75 MG TABLET PO SCH (09:16)
[2024-07-15] MEDS: AMILORIDE HCL 5 MG TABLET PO SCH (09:17)
[2024-07-15] MEDS: CEFTRIAXONE 1,000 MG in NA CHLORIDE 0.9% 50 ML IVPB SCH (09:19)
[2024-07-15] MEDS: carvediloL 12.5 MG TAB PO SCH (09:20)
--- NOTE | 2024-07-15 10:53 | P.PN ---
Date of Service: 07/15/24 Subjective No new complaints Hyperkalemia, continue to manage ROS 10 point ROS as noted above, otherwise negative Physical Exam General: Alert and oriented, NAD HEENT: Atraumatic, Normocephalic Respiratory: Clear BBS, on 4 LNC Cardiovascular: Edema, RRR, S1 S2 present Capillary refill: <2 Seconds Gastrointestinal: Normal bowel sounds, soft on palpation Musculoskeletal: No clubbing Integumentary: No rashes Neurological: Normal gait, Normal speech Lymphatics: No axilla or inguinal lymphadenopathy Vitals Reviewed Problem list CHF exacerbation Acute kidney Injury Hyperkalemia Anemia of chronic disease Urinary tract infection Hyperkalemia Anemia Assessment and Plan CHF exacerbation Daily weights, fluid restriction to 2 L, low-sodium diet Continue IV Lasix, beta-kathleen, strict I's and O's Pulmonary Fibrosis on home oxygen currently on 4 LNC will attempt to wean As needed breathing treatments Acute kidney Injury Hyperkalemia Anemia of chronic disease Kayexalate as needed, s/p insulin and D50 Obtain renal ultrasound Urinary tract infection Start Rocephin, urine culture pending DVT prophylaxis with heparin full code LOS 2 days <Casandra Lizama - Last Filed: 07/16/24 05:55> Patient was seen and examined. Events of the last 24 hours have been noted. Spoke with with PAYTON regarding patient's clinical picture after evaluating and examining the patient independently. I performed a substantial part of the MDM during this patient's care today. I personally made or approved the documented management plan and acknowledge its risk of complications. I agree with the findings and documentation provided in the PAYTON's notes. <Sonia Garcia - Last Filed: 07/20/24 01:11>
[2024-07-15] MEDS: INSULIN REGULAR (HUMAN) 100 UNIT/ML SQ SCH (11:57)
--- NOTE | 2024-07-15 11:58 | P.CNS ---
Date of Consult: 07/15/24 Chief Complaint: CHF History of Present Illness: Patient with PMH of CAD s/p recent PCI RCA, Heart failure preserved EF, pulmonary hypertension presented with worsening SOB and bilateral lower extremities edema, denies chest pain, no palpitations, no syncope. Allergies No Known Allergies Allergy (Verified 02/04/24 10:00) Home medications list reviewed: Yes Home Medications: Albuterol Inhaler [Ventolin Inhaler] 2 puff IH Q6H PRN 07/14/24 Amiloride HCl [Midamor] 5 mg PO DAILY 07/14/24 Amlodipine [Norvasc] 5 mg PO DAILY 07/14/24 Aspirin Chewable [Aspirin Chewable*] 81 mg PO DAILY 07/14/24 Atorvastatin Calcium [Lipitor] 40 mg PO BEDTIME 07/14/24 Carvedilol [Coreg] 12.5 mg PO BID 07/14/24 Clopidogrel Bisulfate [Plavix] 75 mg PO DAILY 07/14/24 Fluticasone Propion/Salmeterol [Advair 250-50 Diskus] 1 each IH BID PRN 07/14/24 Furosemide [Lasix] 20 mg PO DAILY 07/14/24 Gabapentin 300 mg PO BID 07/14/24 Levothyroxine [Synthroid] 88 mcg PO [id number] 07/14/24 Linagliptin [Tradjenta] 5 mg PO DAILY 07/14/24 Losartan Potassium [Cozaar] 50 mg PO DAILY 07/14/24 Pantoprazole [Protonix Tab] 40 mg PO DAILY 07/14/24 predniSONE [Deltasone] 5 mg PO DAILY 07/14/24 - Past Medical/Surgical History Diabetic: Yes -: DMII -: HTN -: Joint pain to Jez Knees -: CAD -: HLD -: Hypothyroid -: Pulmonary Fibrosis -: appendectomy -: cholecsytectomy -: Coronary Stent x2 most recent May 2024 -: Lap Band - Family History Mother Medical History: Hypertension Father Medical History: Lung disease - Social History Alcohol use: No CD- Drugs: No Caffeine use: Yes Place of Residence: Home Review of Systems 10-point ROS is otherwise unremarkable Physical Examination Temp Pulse Resp BP Pulse Ox 97.9 F 105 H 18 151/59 H 96 07/15/24 08:00 07/15/24 08:00 07/15/24 08:00 07/15/24 08:00 07/15/24 08:00 General: Alert, In no apparent distress HEENT: Atraumatic, PERRLA, Mucous membr. moist/pink, EOMI, Sclerae nonicteric Neck: Supple, 2+ carotid pulse no bruit, No LAD, Without JVD or thyroid abnormality Respiratory: Clear to auscultation bilaterally, Normal air movement Cardiovascular: Regular rate/rhythm, Normal S1 S2 Gastrointestinal: Normal bowel sounds, No tenderness Musculoskeletal: No tenderness Integumentary: No rashes Neurological: Normal gait, Normal speech, Normal tone, Normal affect Lymphatics: No axilla or inguinal lymphadenopathy Laboratory Data (last 24 hrs) 07/14/24 07/14/24 07/14/24 18:00 16:22 16:22 WBC 8.20 Hgb 10.8 L Hct 33.3 L Plt Count 192 PT 12.1 INR 1.06 APTT 29.8 Sodium 138 Potassium 6.2 H* BUN 51 H Creatinine 2.64 H Glucose 169 H Total Bilirubin AST ALT Alkaline Phosphatase 07/14/24 16:22 WBC Hgb Hct Plt Count PT INR APTT Sodium 138 Potassium 6.0 H BUN 50 H Creatinine 2.69 H Glucose 176 H Total Bilirubin 0.4 AST 16 ALT < 14 Alkaline Phosphatase 142 H - Problems (1) Acute on chronic diastolic heart failure Current Visit: Yes Status: Acute Plan: agree with Lasix 40 mg IV TID Continue Coreg Hold Losartan until kidney function improves continue to monitor input and output and electrolytes. (2) CAD (coronary artery disease) Current Visit: Yes Status: Acute Plan: mild leak in troponin most likely type 2 SC from CHF/STEFAN, patient with recent PCI ostial RCA 05/2024 continue to trend Troponin until peak and down trending continue ASA 81 mg daily continue Plavix 75 mg daily continue statin
--- NOTE | 2024-07-15 12:35 | ECHO ---
HEIGHT: 5 ft 3 in WEIGHT: 245 lb 3.2 oz DATE OF STUDY: 07/15/[address]: Julio Cesar Perez MD 2-DIMENSIONAL: YES M.MODE: YES DOPPLER: YES COLOR FLOW: YES TDS: PORTABLE: YES DEFINITY: BUBBLE STUDY: DIAGNOSIS: HISTORY OF PULMONARY FIBROSIS WITH NEW ONSET CONGESTIVE HEART FAILURE CARDIAC HISTORY: CATHERIZATION: YES SURGERY: NO PROSTHETIC VALVE: NO PACEMAKER: NO MEASUREMENTS (cm) DIASTOLIC (NORMALS) SYSTOLIC (NORMALS) IVSd 1.3 (0.6-1.2) LA Diam 3.7 (1.9-4.0) LVEF 60-65% LVIDd 3.2 (3.5-5.7) LVIDs 2.2 (2.0-3.5) %FS 31% LVPWd 1.2 (0.6-1.2) Ao Diam 2.7 (2.0-3.7) 2 DIMENSIONAL ASSESSMENT: RIGHT ATRIUM: NORMAL LEFT ATRIUM: MODERATELY DILATED RIGHT VENTRICLE: NORMAL LEFT VENTRICLE: NORMAL TRICUSPID VALVE: MILD TRICUSPID REGURGITATION MITRAL VALVE: MODERATE MITRAL ANNULAR CALCIFICATION PULMONIC VALVE: NORMAL AORTIC VALVE: NORMAL PERICARDIAL EFFUSION: NONE AORTIC ROOT: NORMAL LEFT VENTRICULAR WALL MOTION: NORMAL DOPPLER/COLOR FLOW: GRADE II DIASTOLIC DYSFUNCTION COMMENTS: 1. NORMAL LEFT VENTRICULAR SYSTOLIC FUNCTION, EJECTION FRACTION 60-65%, NORMAL WALL MOTION 2. GRADE I DIASTOLIC DYSFUNCTION 3. MODERATE PULMONARY HYPERTENSION (RIGHT VENTRICULAR SYSTOLIC PRESSURE 55-60 mmHg) 4. NORMAL FILLING PRESSURE (RIGHT ATRIAL PRESSURE 0-5 mmHg) TECHNOLOGIST: MAKAYLA ISRAEL
[2024-07-15] MEDS: IPRATROPIUM BROM 0.5MG/2.5ML NEB SCH (14:11)
[2024-07-15] MEDS: ATORVASTATIN 40 MG TAB PO SCH (21:09)
[2024-07-16] MEDS: LEVOTHYROXINE SOD 0.088 MG TAB PO SCH (05:28)
[2024-07-16 06:29] LABS: Absolute Lymphocytes (CBC) 0.6 K/uL (0.7-4.9); Absolute Monocytes 0.2 K/uL (0.1-1.3); Absolute Neutrophil 7.8 K/uL (1.8-8.0); Basophils % 0.1 % (0-1.3); Hematocrit 29.4 % (36.0-45.0); Hemoglobin 9.5 g/dL (12.0-15.0); Lymphocytes % 6.7 % (15.3-44.8); MCHC 32.2 g/dL (32.0-36.0); MCV 86.9 fL (80-100); MPV 8.6 fL (7.6-11.3); Monocytes % 1.9 % (3.3-12.3); Neutrophils % 91.3 % (41.7-73.7); Nucleated Red Blood Cells % 0.1 % (0-0); Platelets 150 thou/uL (152-406); RBC Red Blood Cell Count 3.39 M/uL (3.86-4.86); Red Cell Distribution Width 15.6 % (12.1-15.2)
[2024-07-16 07:04] LABS: Anion Gap 13.7 mEq/L (5.0-15.0); Magnesium 1.8 mg/dL (1.6-2.4); Phosphorus 6.8 mg/dL (2.5-4.9); Potassium 4.7 mEq/L (3.5-5.1)
[2024-07-16] MEDS: ALBUMIN HUMAN 25% 100 ML IV ONE (09:35)
[2024-07-16] MEDS: NA CHLORIDE 0.9% 250 ML IV ONE (11:13)
--- NOTE | 2024-07-16 12:32 | CON ---
Date of Consultation: 07/16/2024 Reason For Consultation: Elevated BUN and creatinine, fluid management. History Of Present Illness: This is a pleasant 74-year-old female, well known to me from the office, with significant past medical history of CAD, status post PTCA back in May 2024; hypertension; hyperlipidemia; diabetes type 2, complicated with neuropathy and nephropathy; chronic kidney disease secondary to hypertension nephrosclerosis, diabetes nephropathy, last seen in the office back in May. At that time, creatinine 1, GFR of 54. The patient came to the hospital with increased shortness of breath, orthopnea, leg swelling, and weight gain. The patient visited with her Pulmonary 1 week ago. At that time, Lasix was initiated and the patient was placed also on gabapentin, Lasix was 20 mg. The patient did not feel better. Shortness of breath continued and continued to have fluid over volume For that reason, the patient reported to the hospital. Upon arrival to the hospital, the patient was found to be over volume with elevation in BUN and creatinine. For that reason, we have been consulted. The patient upon arrival to the hospital, creatinine was 2.6 on the . Gradually creatinine continued to rise, currently 3.6. The patient started being on diuresis, still not having very good urine output. Kidney function down to 13. The patient denied fever. Denied chills. Denied any rashes. Denied other changes in her medication except the gabapentin and the Lasix 1 week back. The patient, as I mentioned, had cardiac cath back in May. There is no lab testing after that and when we saw her, creatinine was 1 at that time before the cardiac cath. Reviewing the record, the patient is harboring on creatinine around 1.6 to 1.8 with GFR around mid 30. Past Medical History: Includes: 1. Diabetes complicated with neuropathy. 2. Hypertension. 3. Chronic kidney disease stage 3B secondary to hypertension nephrosclerosis, diabetes nephropathy. Past Surgical History: Includes: 1. Knee surgery. 2. PTCA. 3. Appendectomy. 4. Cholecystectomy. Home Medications: Include albuterol, amiloride, amlodipine, aspirin, atorvastatin, carvedilol, Plavix, gabapentin, levothyroxine, losartan, pantoprazole, prednisone. Family History: Positive for hypertension. Social History: Denied smoking. Denied drinking. Denied drug abuse. Review of Systems: Head and Neck: No red eye. No ear pain. GI: No nausea. No vomiting. : No polyuria. No dysuria. No hematuria. CUSTOMER COUNTER REPRESENTATIVE: No vaginal discharge. Respiratory: Has shortness of breath. Cardiovascular: Has orthopnea. Has leg swelling. Endocrine: No polydipsia. Skin: No rash. Neuro: Has neuropathy. Musculoskeletal: Generalized fatigue. Physical Examination: General: When I saw the patient, the patient is lying in bed. Slightly shortness of breath. Vital Signs: Blood pressure 140/62, pulse of 93, afebrile. Chest: Crackles bilateral. Heart: S1, S2. Systolic murmur. Abdomen: Soft, nontender. No organomegaly. Extremities: +1 edema. Neuro: Alert. No focality. No tremor. Vascular: No carotid bruit. No renal bruit. Skin: No rashes. Laboratory Data: For the patient back in May, creatinine 1, GFR 54. Upon admission to the hospital, sodium 138, potassium 6.2, bicarb 23, BUN 51, creatinine 2.6. Today, lab data, sodium 138, potassium 4.7, bicarb 22, BUN 64, creatinine 3.6. Calcium 8.3, phosphorus 6.8, magnesium 1.8. PTH 55. Urinalysis: Positive for RBC and WBC, +2 protein. Chest x-ray done on the , cardiomegaly with congestion. Echocardiogram: Diastolic dysfunction, ejection fraction of 60%, pulmonary hypertension. Current Medications: The patient is on include: 1. Ceftriaxone. 2. Albuterol. 3. Heparin. 4. Carvedilol. 5. Lasix. 6. Levothyroxine. Assessment And Plan: 1. Acute kidney injury secondary to cardiorenal, over volume, superimposed with amiloride ARB. a. I am going to go ahead and increase the Lasix to IV and we will increase it to 80 mg b.i.d. We will follow up a repeat chest x-ray for better evaluation of her fluid status. Given the previous positive CHERRY, I am going to send for full serology to rule out any pulmonary/renal syndrome and we will follow up the patient. b. I had a long discussion with the patient in the presence of the daughter that if kidney function continues to decline or there is no improvement on the Lasix infusion, the patient may need to be initiated on dialysis. Family is in agreement. We will follow up lab. c. Also discussed with the patient and the daughter regarding possibly may need kidney biopsy, so we will follow up. d. We will hold any antiplatelet for the time being for the plan for biopsy. 2. Hypertension with the presence of acute kidney injury. Hold amiloride. Hold losartan. Hold spironolactone. 3. Hyperkalemia secondary to renal failure. Hold amiloride and spironolactone. We will continue diuresis. Currently resolved. 4. Pulmonary hypertension with acute kidney injury, to rule out pulmonary/renal, we will send further workup. Follow up with Primary. 5. Diabetes, as by Primary. 6. Hyponatremia, secondary to dilutional. Will diurese. Will follow up. 7. Hypomagnesemia. No need for supplement for the time being. Thank you, Dr. Garcia, for allowing us to participate in the care of your patient. Time spent examining the patient [id number]; reviewing data, lab and radiology; placing order; discussing the case with the patient and daughter by bedside; discussing the case with the operations team leader including hospitalist, Cardiology, and nursing staff more than 75 minutes. KOLE Voice ID: [id number] Report ID: [id number] JESSY
--- NOTE | 2024-07-16 12:45 | RAD REPORT ---
EXAMINATION: ONE VIEW CHEST XR CLINICAL INDICATION: Female, 74 years old.,COPD TECHNIQUE: Frontal chest projection is submitted. Examination is limited by patient positioning and t echnique. COMPARISON: 07/14/2024 FINDINGS: Stable extensive patchy bilateral airspace opacities on the left. Mild improvement of aeration in the right central/infrahilar region. No pneumothorax or sizable effusion. The heart is normal in size. Mediastinal contours are unremarkable. IMPRESSION: Mild partial improvement of aeration in the right central/infrahilar region. Findings again are nima rning for pulmonary edema. Superimposed pneumonia cannot be excluded.
--- NOTE | 2024-07-16 13:29 | P.PN ---
Date of Service: 07/16/24 Subjective Awake and conversing well, on 3 LNC, reports a cough that is better than when admitted No new complaints ROS 10 point ROS as noted above, otherwise negative Physical Exam General: AAO x3, NAD HEENT: Atraumatic, Normocephalic Respiratory: Clear BBS, on 3 LNC Cardiovascular: Edema, NSR, S1 S2 present Capillary refill: <2 Seconds Gastrointestinal: Normal bowel sounds, soft on palpation Musculoskeletal: No clubbing Integumentary: No rashes Neurological: Normal gait, Normal speech Lymphatics: No axilla or inguinal lymphadenopathy Vitals Reviewed Problem list CHF exacerbation Elevated troponin Pulmonary Fibrosis Acute kidney Injury Hyperkalemia- improved Anemia of chronic disease Urinary tract infection Hypoalbuminemia Hyperkalemia Diabetes Mellitus Assessment and Plan CHF exacerbation Elevated troponin Daily weights, fluid restriction to 2 L, low-sodium diet beta-kathleen, strict I's and O's Pulmonary Fibrosis on home oxygen currently on 3 LNC will attempt to wean As needed breathing treatments Acute kidney Injury Hyperkalemia-improved Anemia of chronic disease Kayexalate as needed ordered renal ultrasound Plan for renal biopsy next week, will hold plaix Urinary tract infection Start Rocephin, urine culture pending Urine culture growing gram negative rods Hypoalbuminemia albumin today Diabetes Mellitus -Accucheck with SSI -A1C 7.0 DVT prophylaxis with heparin full code LOS 2 days <Casandra Lizama - Last Filed: 07/16/24 18:16> Patient was seen and examined. Events of the last 24 hours have been noted. Spoke with with PAYTON regarding patient's clinical picture after evaluating and examining the patient independently. I performed a substantial part of the MDM during this patient's care today. I personally made or approved the documented management plan and acknowledge its risk of complications. I agree with the findings and documentation provided in the PAYTON's notes. <Sonia Garcia - Last Filed: 07/20/24 01:11>
--- NOTE | 2024-07-16 17:23 | RAD REPORT ---
EXAMINATION: US RENAL CLINICAL INDICATION: Acute renal insufficiency TECHNIQUE: Real-time ultrasonography of the kidneys performed. COMPARISON: 2021. FINDINGS: Right kidney measures 10 cm with a normal echotexture. Left kidney measures 10 cm with normal echotexture.. 2.6 cm left renal cyst. No hydronephrosis No gross abnormality bladder. IMPRESSION: Increased renal echotexture may indicate parenchymal disease 2.6 cm left renal cyst
[2024-07-16] MEDS: FUROSEMIDE 40 MG/4 ML VIAL IV SCH (17:31)
[2024-07-16 18:58] LABS: Specific Gravity 1.015 (1.005-1.030); Sqamous Epithelial <5 /HPF (None Seen); Urine Bacteria <20 /HPF (<20); Urine Bilirubin NEGATIVE (Negative); Urine Blood 3+ (OVER) (Negative); Urine Clarity Extremely Turbid (Clear); Urine Color Light-Orange (Yellow); Urine Crystals Unidentified Few /HPF (None Seen); Urine Culture Reflex Order REFLEXED; Urine Glucose NEGATIVE (Negative); Urine Ketones NEGATIVE (Negative); Urine Microscopic Reflex YN ORDER UMIC; Urine Nitrite NEGATIVE (Negative); Urine Protein 3+ (Negative); Urine RBC >50 /HPF (None Seen); Urine Urobilinogen Normal (Normal); Urine WBC >50 /HPF (<5); Urine Yeast (Budding) Occasional /HPF (None Seen)
[2024-07-16] MEDS: ACETAMINOPHEN 500 MG TAB PO PRN (20:55)
[2024-07-16] MEDS: HEPARIN 5000 UNIT/ML 1 ML VIAL SQ SCH (20:57)
[2024-07-17 04:41] LABS: Absolute Lymphocytes (CBC) 0.5 K/uL (0.7-4.9); Absolute Monocytes 0.5 K/uL (0.1-1.3); Absolute Neutrophil 8.6 K/uL (1.8-8.0); Basophils % 0.4 % (0-1.3); Hematocrit 28.5 % (36.0-45.0); Hemoglobin 9.5 g/dL (12.0-15.0); Lymphocytes % 5.5 % (15.3-44.8); MCH 28.3 pg (27.0-35.0); MCHC 33.2 g/dL (32.0-36.0); MCV 85.2 fL (80-100); MPV 7.8 fL (7.6-11.3); Monocytes % 5.4 % (3.3-12.3); Neutrophils % 88.7 % (41.7-73.7); Nucleated Red Blood Cells % 0.1 % (0-0); Percent Reticulocyte Count 1.12 % (0.4-2.05); Platelets 154 thou/uL (152-406); RBC Red Blood Cell Count 3.35 M/uL (3.86-4.86); Red Cell Distribution Width 15.5 % (12.1-15.2)
[2024-07-17 05:04] LABS: Albumin 2.3 g/dL (3.4-5.0); Anion Gap 12.4 mEq/L (5.0-15.0); Ferritin 294.9 ng/mL (8-252); Magnesium 1.6 mg/dL (1.6-2.4); Phosphorus 7.7 mg/dL (2.5-4.9); Potassium 4.4 mEq/L (3.5-5.1); Thyroid Stimulating Hormone 0.144 uIU/mL (0.358-3.740); Uric Acid 11.6 mg/dL (2.6-6.0)
[2024-07-17 05:15] LABS: Band Neutrophils 2 % (0-1); Blood Morphology Comment NOT SEEN (NOT SEEN); Differential Total Cells Count 100; Lymphocytes 4 % (15-42); Monocytes 9 % (0-10); Nucleated Red Blood Cells 1 /100WBC; Platelet Estimate ADEQ; Segmented Neutrophils 85 % (40-80)
[2024-07-17] MEDS ORDERED: FUROSEMIDE 20 MG TABLET PO SCH (08:00)
[2024-07-17] MEDS: predniSONE 5 MG TAB PO SCH (09:52)
--- NOTE | 2024-07-17 13:08 | PN ---
Date of Progress Note: 07/17/2024 Subjective: The patient was admitted to the hospital with anasarca, shortness of breath, and pulmonary hypertension. The patient had acute kidney injury. Our differential is pulmonary renal/prerenal. The patient was diuresed. Kidney function continue to decline. Physical Examination: Vital Signs: Blood pressure 165/77, pulse of 91, afebrile. The patient had good urine output of 1500. Chest: Crackles bilateral. Heart: S1, S2. Systolic murmur. Abdomen: Soft, nontender. Extremities: Trace edema. Neurologic: Alert. No focality. Laboratory Data: WBC 9.7, hemoglobin 9.5. Sodium 136, potassium 4.4, bicarb 24, BUN 74, creatinine 4.3, uric acid 11.6, calcium 7.9, phosphorus 7.7, iron saturation 18, ferritin 294, albumin 2.3. Serum protein electrophoresis pending. PTH 206. TSH 0.1. Urinalysis, +3 protein. Serology was negative so far. Current Medications: The patient is on include: 1. Ceftriaxone. 2. Carvedilol 6.25. 3. Atorvastatin. 4. Lasix breathing treatment. 5. Prednisone. Assessment And Plan: 1. Acute kidney injury, unknown etiology. Differential diagnosis of prerenal secondary to over diuresis. 2. Pulmonary renal syndrome giving the finding on the chest x-ray and worsening kidney function. 3. I am going to go ahead and discontinue Lasix. I am going to start the patient on gentle hydration and we will follow up the patient closely. 4. I had long discussion with the patient and the daughter by bedside that we will follow up lab over the night. If kidney function continue to decline, the patient will need renal replacement therapy. We will consult Surgery and depending on the lab tomorrow morning, if kidney function decline further, we will proceed with TDC. If kidney function improve, we will backup. 5. We will plan for biopsy next week after holding the Plavix for full 5 days. I discussed with Dr. Acuña, Cardiology for okay to hold the Plavix for 5 days. 6. CAD, status post PTCA as by Cardiology. 7. Hypertension with pulmonary hypertension. I am going to go ahead and increase carvedilol. Add calcium channel kathleen and we will follow up. 8. Respiratory failure secondary to pneumonia. We will consult Pulmonary. 9. Secondary hyperparathyroidism. I will start the patient on calcitriol. 10. Iron deficiency anemia. We will start the patient on IV iron. Time spent examining the patient [id number] reviewing that the lab and the radiology placing order discussing the case with the patient discussing the case with the marine steamfitter including hospitalist and nursing staff more than 55 minutes KOLE Voice ID: [id number] Report ID: [id number] JESSY
--- NOTE | 2024-07-17 13:21 | P.PN ---
Date of Service: 07/17/24 Subjective Feeling well on morning rounds This afternoon, became cyanotic, placed on nonrebreather at 10 L, improved She reports having anxiety ROS 10 point ROS as noted above, otherwise negative Physical Exam General: Alert and oriented x3, NAD HEENT: Atraumatic, Normocephalic Respiratory: Symmetrical chest wall, movement on 10 LNC Cardiovascular: Edema, NSR, S1 S2 present Capillary refill: <2 Seconds Gastrointestinal: soft on palpation Musculoskeletal: No clubbing Integumentary: No rashes Neurological: Normal gait, Normal speech Vitals Reviewed Problem list CHF exacerbation Elevated troponin Pulmonary Fibrosis Acute kidney Injury Hyperkalemia- improved Anemia of chronic disease Urinary tract infection Hypoalbuminemia Hyperkalemia Diabetes Mellitus Assessment and Plan CHF exacerbation Elevated troponin Daily weights, fluid restriction to 2 L, low-sodium diet beta-kathleen, strict I's and O's Acute hypoxic respiratory failure secondary to pulmonary Fibrosis Respiratory acidosis On nonrebreather 10 L for thirty minutes Scheduled breathing treatments ABG (PH 7.26, PCO2 49.5, pO2 92.8, HCO3 21.2)- reduce oxygen Acute kidney Injury Hyperkalemia-improved Anemia of chronic disease Kayexalate as needed ordered renal ultrasound Plan for renal biopsy next week, will hold plavix Urinary tract infection Start Rocephin, urine culture pending Urine culture growing gram negative rods Hypoalbuminemia albumin today Diabetes Mellitus -Accucheck with SSI -A1C 7.0 DVT prophylaxis with heparin full code LOS 2 days <Casandra Lizama - Last Filed: 07/17/24 18:35> Patient was seen and examined. Events of the last 24 hours have been noted. Spoke with with PAYTON regarding patient's clinical picture after evaluating and examining the patient independently. I performed a substantial part of the MDM during this patient's care today. I personally made or approved the documented management plan and acknowledge its risk of complications. I agree with the findings and documentation provided in the PAYTON's notes. <Sonia Garcia - Last Filed: 07/20/24 01:10>
[2024-07-17] MEDS: AMLODIPINE 10 MG TAB PO SCH (14:38)
[2024-07-17] MEDS: NA CHLORIDE 0.9% 1,000 ML IV SCH (14:39)
[2024-07-17] MEDS: SOD FERRIC GLUC COMPLX/SUCROSE 250 MG in NA CHLORIDE 0.9% 250 ML IV SCH (14:39)
[2024-07-17] MEDS: CALCITROL 0.25 MCG CAP PO SCH (14:40)
--- NOTE | 2024-07-17 15:38 | RAD REPORT ---
EXAMINATION: CT CHEST WITHOUT CONTRAST CLINICAL INDICATION: Bialteral infiltrates TECHNIQUE: Routine CT scan of the chest without intravenous contrast. One or more of the following do se reduction techniques were used: Automated exposure control, adjustment of the mA and/or kV according to patient size, and/or iterative reconstruction. Unless otherwise specified, incidental fi ndings do not require dedicated imaging follow-up. COMPARISON: 05/14/2023 FINDINGS: LOWER NECK: Visualized thyroid gland and soft tissues are normal. LUNGS: There is extensive airspace consolidation in both lungs. Fibrotic changes are also present wit h traction bronchiectasis. PLEURA: Small bilateral pleural effusions. A small amount of pericardial fluid also seen. MEDIASTINUM AND LYMPH NODES: Mildly prominent mediastinal lymph nodes. Aortic atherosclerosis. OSSEOUS STRUCTURES AND CHEST WALL: Intact. UPPER ABDOMEN: No significant abnormalities. IMPRESSION: Extensive bilateral airspace consolidations are present with small amounts of pleural fluid. Differen tial considerations would include pneumonia, pulmonary edema or ARDS. Examination limited by lack of IV contrast.
[2024-07-17] MEDS: METHYLPREDNISOLONE 40 MG INJ IV ONE (17:07)
[2024-07-17 17:47] LABS: Arterial Blood Carboxyhemoglob 1.2 % (0-1.5); Blood Gas Oxyhemoglobin 94.6 % (94-97); Blood O2 Saturation 96.8 % (92-98.5)
--- NOTE | 2024-07-17 17:47 | CON ---
Date of Consultation: 07/17/2024 Reason For Consultation: The patient may need a tunneled dialysis catheter. History Of Present Illness: The patient is a 74-year-old female who presented with elevated BUN and creatinine and overload over fluid and has chronic renal disease with acute exacerbation. She is enio ng managed by the nephrology team and they are trying medical management, but it appears that she may require hemodialysis. Therefore I was consulted to be ready should the patient's labs not improve w ithin the next 24 hours. The patient is awake and alert. She does appear to be a little fluid overl oaded and she is in no acute distress. No fever or chills. No sore throat, runny nose, cough, heada ches, or dizziness. No chest pain. Review of Systems: Otherwise unremarkable. Medical History: Significant for chronic renal disease, diabetes with neuropathy, hypertension. Past Surgical History: Knee surgery, PTCA, appendectomy, and cholecystectomy. Social History: The patient does not smoke or drink alcohol. Family History: Significant for hypertension. Allergies: THERE ARE NO ALLERGIES. Physical Examination: Vital Signs: Stable except for her respiratory rate is high at 28. Her O2 saturation on oxygen is 9 7% to 98%. Head and Neck: No masses. There is edema throughout the head and neck area. Chest: Clear. Heart: S1, S2. Abdomen: Soft. Extremities: Neurovascularly intact. Neuro: Nonfocal. Laboratory Data: White count is 9.7, there is a slight left shift. Platelets are 154. INR is 1.06. Chemistry reviewed. Her BUN and creatinine are 74 and 4.33. Her GFR is 10. Assessment: A 74-year-old female with chronic renal disease with acute exacerbation. Recommendation: If the patient needs tunneled dialysis catheter, we will place it when she is ready. Risks, benefits, alternatives of the procedure were discussed in detail with the patient. She unde rstands and agrees and we will await the recommendation by the Nephrology team in the morning. /MODL Voice ID: [id number] Report ID: [id number]
[2024-07-17 17:48] LABS: Blood Gas THB 10.8 g/dl (12-18)
[2024-07-17] MEDS: ALPRAZOLAM 0.5 MG TABLET PO ONE (17:49)
--- NOTE | 2024-07-17 17:52 | RAD REPORT ---
EXAMINATION: ONE VIEW CHEST XR CLINICAL INDICATION: dyspneic TECHNIQUE: Frontal chest projection is submitted. Examination is limited by patient positioning and t echnique. COMPARISON: 07/16/2024 FINDINGS: Extensive bilateral pulmonary opacities are present, mildly progressive since the comparison study. T his may represent pulmonary edema, pneumonia or ARDS. The heart is mildly to moderately enlarged. No displaced fractures identified.
[2024-07-17] MEDS: carvediloL 12.5 MG TAB PO SCH (20:59)
[2024-07-18 03:44] LABS: Rheumatoid Factor NEG (NEG)
[2024-07-18 04:42] LABS: Albumin 2.2 g/dL (3.4-5.0); Anion Gap 13.6 mEq/L (5.0-15.0); Phosphorus 7.8 mg/dL (2.5-4.9); Potassium 4.6 mEq/L (3.5-5.1)
[2024-07-18] MEDS: METHYLPREDNISOLONE 125 MG INJ IV ONE (06:11)
--- NOTE | 2024-07-18 07:23 | P.PN ---
Date of Service: 07/17/24 Patient came hypoxic after CT scan. Patient was placed on nonrebreather and clinically patient's symptoms improved. Patient had slight hypercapnia and combination of respiratory and metabolic acidosis. Is clinically doing better and weaned down to 5 L. Planning on dialysis catheter in a.m. reassess imaging after hemodialysis. Patient also with pulmonary fibrosis and recommendations for IV steroids per pulmonary. Continue with nebs every 6 hours. Unfortunately, patient long-term prognosis is poor as she has numerous comorbidities and is very debilitated and does not really get around much. Unless she improves her strength she is unlikely to get better even after medical therapy.
[2024-07-18] MEDS: NS 0.9% VIAL 0 ML ONE (07:58)
[2024-07-18] MEDS: NA CHLORIDE 0.9% 100 ML ONE (07:59)
[2024-07-18] MEDS: HEPARIN 5000 UNIT/ML 1 ML VIAL ONE (07:59)
[2024-07-18] MEDS: LIDOCAINE 1% 20 ML MDV ONE (08:05)
[2024-07-18] MEDS ORDERED: FENTANYL CITR 100 MCG/2 ML ONE (08:08)
[2024-07-18] MEDS ORDERED: MIDAZOLAM HCL 2 MG/2 ML INJ ONE (08:08)
[2024-07-18] MEDS ORDERED: ONDANSETRON 4 MG/2 ML VIAL ONE (08:08)
[2024-07-18] MEDS ORDERED: LIDOCAINE 2% MPF 5 ML VIAL ONE (08:08)
[2024-07-18] MEDS ORDERED: propofoL 200 MG/20 ML VIAL IV ONE (08:08)
[2024-07-18] MEDS ORDERED: EPHEDRINE SULF 50 MG/ML VIAL ONE (08:57)
[2024-07-18] MEDS: BUPIVACAINE 0.5% PF 10 ML VIAL ONE (09:15)
[2024-07-18] MEDS ORDERED: Mastisol Adhesive Liq ONE (09:32)
--- NOTE | 2024-07-18 10:13 | P.OP ---
Date of Service: 07/18/24 Preop diagnosis: Acute renal failure Postop diagnosis: Same Procedure performed: Placement of a tunneled dialysis catheter in the right IJ, interpretation of Doppler and fluoroscopy Surgeon: Nima Mahan MD Metal Flow Coordinator: Petra PATRICK Estimated blood loss: Minimal Specimen: None Findings: Normal anatomy Anesthesia: General Complications: None Drains: None Fluids and blood products: Nonapplicable Disposition: Recovery room Operative note: Patient brought to the OR and placed in supine position. General anesthesia began. Patient prepped and draped in usual sterile fashion. Marcaine 0.5% infiltrated locally for postop pain control. Doppler device used to isolate the right internal jugular vein. 18-gauge needle used to access the right internal jugular vein and guidewire passed. Position confirmed with fluoroscopy. A counterincision made on the right anterior chest. Tunneling device used to tunnel the catheter between the 2 wounds. Seldinger technique used. Tip of the catheter placed in the SVC right atrial junction under fluoroscopy. Catheter flushed with heparin and packed with heparin with good blood flow. 3-0 chromic used to approximate subcutaneous tissue. 3-0 nylon used to secure the catheter to the chest wall. Sterile dressing applied. Patient awakened and taken to recovery room in good general condition. A chest x-ray has been ordered. CC:
--- NOTE | 2024-07-18 10:22 | RAD REPORT ---
EXAM: Chest Single View HISTORY: 74 years Female S/P HD CATH COMPARISON: 07/17/2024 FINDINGS: LUNGS/PLEURA: Similar widespread interstitial and airspace disease. CARDIAC/MEDIASTINUM: Stable enlargement. UPPER ABDOMEN: No significant abnormality. BONES: No acute abnormality. LINES/TUBES/OTHER: Right IJ approach dialysis catheter with distal tip at the right atrium. IMPRESSION: Right IJ approach dialysis catheter with tip at the right atrium. No pneumothorax.
--- NOTE | 2024-07-18 12:10 | RAD REPORT ---
EXAM: Fluoroscopy use, Fluoroscopy <1 Hour HISTORY: TESSIO CATH COMPARISON: None FINDINGS: A total of 1 images were sent to PACS, during a fluoroscopically guided hemodialysis cathet er placement. No radiologist was involved in protocoling or performance of the study, and no radiologist was present for the duration of the procedure. No interpretation of the saved images will be provided. Total fluoroscopy time: 8 seconds. IMPRESSION: Documentation of fluoroscopy use as above.
--- NOTE | 2024-07-18 15:39 | P.PN ---
Date of Service: 07/18/24 Subjective Oxygen need remains nonrebreather, attempting Nasal cannula at times Tunneled dialysis catheter placed today by Dr. Mahan Nephrology following ROS 10 point ROS as noted above, otherwise negative Physical Exam General: AAO x3, NAD HEENT: Atraumatic, Normocephalic Respiratory: Symmetrical chest wall movement, on nonrebreather Cardiovascular: regular rate and rhythm, S1 S2 present Capillary refill: <2 Seconds Gastrointestinal: soft on palpation Musculoskeletal: No clubbing Integumentary: No rashes Neurological: Normal gait, Normal speech Vitals Reviewed Problem list CHF exacerbation Elevated troponin Pulmonary Fibrosis Acute kidney Injury Hyperkalemia- improved Anemia of chronic disease Urinary tract infection Hypoalbuminemia Hyperkalemia Diabetes Mellitus Assessment and Plan CHF exacerbation Elevated troponin Daily weights fluid restriction to 2 L low-sodium diet beta-kathleen strict I's and O's Stopped lasix and creatinine improved some Acute hypoxic respiratory failure secondary to pulmonary Fibrosis Combination of metabolic and Respiratory acidosis continues On nonrebreather 10 L Scheduled breathing treatments ABG (PH 7.26, PCO2 49.5, pO2 92.8, HCO3 21.2) Solumedrol 80 mg Q8h Acute kidney Injury Hyperkalemia-improved Anemia of chronic disease Kayexalate as needed renal ultrasound reports "Increased renal echotexture may indicate parenchymal disease 2.6 cm left renal cyst" Plan for renal biopsy next week, will hold plavix Tunneled dialysis catheter placed today(07/18) Urinary tract infection continue Rocephin, urine culture pending Urine culture growing gram negative rods Hypoalbuminemia albumin today Diabetes Mellitus -Accucheck with SSI -A1C 7.0 DVT prophylaxis with heparin full code LOS 2 days <Casandra Lizama - Last Filed: 07/18/24 18:34> Patient was seen and examined. Events of the last 24 hours have been noted. Spoke with with [facility]TON regarding patient's clinical picture after evaluating and examining the patient independently. I performed a substantial part of the MDM during this patient's care today. I personally made or approved the documented management plan and acknowledge its risk of complications. I agree with the findings and documentation provided in the PAYTON's notes. <Sonia Garcia - Last Filed: 07/20/24 01:10>
[2024-07-18 16:18] LABS: Hepatitis B Core IgM Nonreactive (Nonreactive); Hepatitis B Surface Ab - Quant 3.27 mIU/mL (<8.0); Hepatitis B surface AG Interp. Nonreactive (Nonreactive)
[2024-07-18 16:19] LABS: HBsAG Nonreactive Report Report
[2024-07-18] MEDS: ALBUTEROL 2.5 MG/3 ML NEB SOL NEB SCH (18:18)
[2024-07-18] MEDS: FUROSEMIDE 40 MG/4 ML VIAL IV ONE (18:47)
--- NOTE | 2024-07-18 20:14 | PN ---
Date of Progress Note: 07/18/2024 Subjective: The patient has high oxygen demand. She has rales on examination. Chest x-ray, no sign ificant findings. Started on dialysis today. Will resume Lasix. Next dialysis tomorrow. Objective: Vital Signs: Temperature 98.4, pulse rate 83, blood pressure 146/64. General: The patient is awake, looks tired and chronically ill. Neck: Supple. No elevated JVD. Heart: Regular rate and rhythm. Normal S1, S2. Chest: Diffuse rales. Abdomen: Soft and nontender. Extremities: No edema. Laboratory Data: White count 9.7, hemoglobin 9.5. Sodium 134, potassium 4.6, BUN 83, creatinine 3.9 . Medications: Include Tylenol, albuterol, amlodipine, calcitriol, carvedilol, insulin, levothyroxine, steroids, Rocephin, IV iron. Assessment And Plan: 1. Acute kidney injury. Unclear etiology, possibly due to cardiorenal syndrome versus multiple organ failure. Urinalysis shows a proteinuria and hematuria. Serology workup is negative for hepatitis C , pending hepatitis B, CHERRY, and ANCA and complement factor. Started on dialysis today. Next dialysi s tomorrow. We will discontinue IV fluid. Renally dose medication. 2. Hypoxic and hypercapnic respiratory failure secondary to underlying interstitial lung disease and fluid overload. Continue dialysis as above, steroid and oxygen. We will resume Lasix. 3. Anemia of chronic disease. Continue IV iron. 4. Coronary artery disease, status post stent placement on May 2024. 5. Hypertension. Blood pressure is currently controlled. Continue amlodipine. Thanks you for allowing me to participate in patient's care. Total time spent 55 minutes including d ocumentation, reviewing labs, and placing orders. Overall, guarded prognosis at this time. AA/MODL Voice ID: [id number] Report ID: [id number]
[2024-07-18] MEDS: METHYLPREDNISOLONE 40 MG INJ IV SCH (20:39)
[2024-07-18] MEDS: ARFORMOTEROL TARTRATE 15 MCG/2 ML VIAL.NEB NEB SCH (21:00)
--- NOTE | 2024-07-19 06:41 | RAD REPORT ---
EXAM: Chest Single View HISTORY: 74 years Female pneumonia COMPARISON: Yesterday FINDINGS: LUNGS/PLEURA: Widespread bilateral airspace disease without significant interval change. CARDIAC/MEDIASTINUM: Stable enlargement. UPPER ABDOMEN: No significant abnormality. BONES: No acute abnormality. LINES/TUBES/OTHER: Dialysis catheter in similar position. IMPRESSION: No significant change in widespread airspace disease.
[2024-07-19] MEDS: IPRATROPIUM BROM 0.5MG/2.5ML NEB SCH (07:38)
[2024-07-19] MEDS: METHYLPREDNISOLONE 125 MG INJ IV SCH (08:41)
[2024-07-19 10:51] LABS: Absolute Eosinophils 0.3 K/uL (0-0.5); Absolute Lymphocytes (CBC) 2.3 K/uL (0.7-4.9); Absolute Monocytes 1.1 K/uL (0.1-1.3); Absolute Neutrophil 7.9 K/uL (1.8-8.0); Basophils % 0.2 % (0-1.3); Eosinophils % 2.5 % (0-4.4); Hematocrit 44.7 % (36.0-45.0); Hemoglobin 15.8 g/dL (12.0-15.0); Lymphocytes % 19.5 % (15.3-44.8); MCH 32.3 pg (27.0-35.0); MCHC 35.3 g/dL (32.0-36.0); MCV 91.5 fL (80-100); MPV 7.7 fL (7.6-11.3); Monocytes % 9.8 % (3.3-12.3); Nucleated Red Blood Cells % 0.1 % (0-0); Platelets 271 thou/uL (152-406); RBC Red Blood Cell Count 4.89 M/uL (3.86-4.86)
[2024-07-19 11:13] LABS: ALT/SGPT 18 U/L (13-56); Albumin/Globulin Ratio 1.1 (1.1-1.8); Alkaline Phosphatase 56 U/L (45-117); BUN Blood Urea Nitrogen 21 mg/dL (7-18); Bicarbonate 24 mEq/L (21-32); Bilirubin Total 0.9 mg/dL (0.2-1.0); Globulin 3.6 g/dL (2.3-3.5); Glomerular Filtration Rate 61 ml/min (=/>90); Glucose Level 103 mg/dL (74-106); NT PRO-BNP 220 pg/mL (<125); Phosphorus 2.7 mg/dL (2.5-4.9); Protein, Total 7.6 g/dL (6.4-8.2); Sodium Level 136 mEq/L (136-145)
[2024-07-19 11:17] LABS: AST/SGOT < 10 U/L (15-37); C-Reactive Protein < 2.90 mg/L (<3.00)
[2024-07-19] MEDS: FENTANYL CITR 100 MCG/2 ML IV PRN (18:17)
[2024-07-19] MEDS: HYDROCODONE/APAP 7.5/325 MG TAB PO PRN (20:46)
--- NOTE | 2024-07-20 01:02 | P.PN ---
Subjective Date of Service: 07/19/24 Patient became hypoxic this morning and placed on a non-rebreather once again. We had to place patient on BiPAP. Patient was moved to the intensive care unit but after hemodialysis and removal of 2 L patient's oxygenation improved significantly. Patient is currently saturating 99% on 5 L. continue with diuresing and hemodialysis along with neb treatments and steroids. Appreciate Nephrology and Pulmonary consultation. Echocardiogram has been reviewed. Moderate pulmonary HTN Review of Systems 10-point ROS is otherwise unremarkable Physical Examination - Vital Signs Temperature: 97.8 F Blood Pressure: 102/75 Pulse: 60 Respirations: 16 Pulse Ox (%): 97 - Physical Exam General: Alert, In no apparent distress, Oriented x3, Moderate distress HEENT: Atraumatic, PERRLA, EOMI Neck: Supple, JVD not distended Respiratory: Diminished, Crackles/rales Cardiovascular: Regular rate/rhythm, Normal S1 S2, Systolic murmur Gastrointestinal: Normal bowel sounds, Soft and benign, Non-distended, No tenderness Musculoskeletal: No clubbing, No tenderness, Swelling Integumentary: No rashes Neurological: Other (its) - Studies Microbiology Data (last 24 hrs): 07/14/24 16:07 Blood - Blood Aerobic Blood Culture - Final No growth in 5 days. 07/14/24 16:07 Blood - Blood Anaerobic Blood Culture - Final No growth in 5 days. 07/14/24 16:22 Blood - Blood Aerobic Blood Culture - Final No growth in 5 days. 07/14/24 16:22 Blood - Blood Anaerobic Blood Culture - Final No growth in 5 days. Medications List Reviewed: Yes Assessment & Plan - Problems (Diagnosis) (1) Acute hypoxic respiratory failure Current Visit: Yes Status: Acute (2) Acute on chronic diastolic heart failure Current Visit: Yes Status: Acute (3) Acute kidney injury superimposed on chronic kidney disease Current Visit: Yes Status: Acute (4) Idiopathic pulmonary fibrosis Current Visit: Yes Status: Acute (5) ESRD (end stage renal disease) Current Visit: Yes Status: Acute (6) Morbid obesity Current Visit: Yes Status: Acute (7) Obstructive sleep apnea Current Visit: Yes Status: Acute (8) Debility Current Visit: Yes Status: Acute (9) Pulmonary hypertension Current Visit: Yes Status: Acute (10) CAD (coronary artery disease) Current Visit: Yes Status: Acute (11) Diabetes Current Visit: No Status: Acute Qualifiers: Diabetes mellitus type: other specified (including ANGEL) - Plan 1. Acute hypoxic respiratory failure secondary to idiopathic pulmonary fibrosis and fluid overload related to acute renal failure; continue with IV steroids and neb treatments and continue with hemodialysis per Nephrology. 2. Acute on chronic kidney disease; continue with monitor renal function closely. Patient on hemodialysis at this time as patient has progressed to ESRD rapidly. Hopefully this will be reversible but will at this time patient needs hemodialysis. Patient will probably need renal biopsy. 3. History of heart failure with preserved ejection fraction with moderate pulmonary hypertension; continue with diuresing 4. Morbid obesity with metabolic syndrome; continue with strict blood pressure and blood sugar control 5. Obesity hypoventilation syndrome; continue with BiPAP support at night and continue with ABG 6. Idiopathic pulmonary fibrosis; continue with nebs and steroids; continue with outpatient pulmonary follow-up 7. Gi and DVT prophylax Discharge Plan: Home Plan to discharge in: Greater than 2 days - Advance Directives Does patient have a Living Will: No Does patient have a Durable POA for Healthcare: No - Code Status/Comfort Care Code Status Assessed: Yes Code Status: Full Code Critical Care: Yes Time Spent Managing PTS Care (In Minutes): 55
[2024-07-20 03:47] LABS: UR PROTEIN 916.4 mg/dL (<11.9); Urine Protein/Creatinine Ratio 4.65 ratio (<0.15)
[2024-07-20 09:04] LABS: Absolute Lymphocytes (CBC) 0.2 K/uL (0.7-4.9); Absolute Monocytes 0.2 K/uL (0.1-1.3); Absolute Neutrophil 6.1 K/uL (1.8-8.0); Basophils % 0.2 % (0-1.3); Eosinophils % 0.1 % (0-4.4); Hemoglobin 10.6 g/dL (12.0-15.0); Lymphocytes % 3.3 % (15.3-44.8); MCH 27.3 pg (27.0-35.0); MCHC 32.2 g/dL (32.0-36.0); MCV 84.8 fL (80-100); MPV 8.3 fL (7.6-11.3); Monocytes % 3.4 % (3.3-12.3); Nucleated Red Blood Cells % 0.4 % (0-0); Platelets 101 thou/uL (152-406); RBC Red Blood Cell Count 3.89 M/uL (3.86-4.86); Red Cell Distribution Width 15.7 % (12.1-15.2)
[2024-07-20 10:02] LABS: Blood Morphology Comment NOT SEEN (NOT SEEN); White Blood Cell Scan OK (OK)
[2024-07-20 10:03] LABS: Platelet Estimate DECR
[2024-07-20 10:05] LABS: Platelets Clumped NOTED
[2024-07-20 10:19] LABS: Albumin 2.1 g/dL (3.4-5.0); Anion Gap 16.1 mEq/L (5.0-15.0); Potassium 5.1 mEq/L (3.5-5.1)
[2024-07-20 14:25] LABS: Anion Gap 10.6 mEq/L (5.0-15.0)
[2024-07-20 14:30] LABS: Potassium 4.6 mEq/L (3.5-5.1)
[2024-07-20 14:55] LABS: Abnormal Protein Band 1 REPORT; Albumin, (SPE) 2.4 g/dL (3.8-4.8); Alpha-1-Globulins 0.4 g/dL (0.2-0.3); Alpha-2-Globulins 1.1 g/dL (0.5-0.9); Beta 1 Globulin 0.4 g/dL (0.4-0.6); Gamma Globulins 1.5 g/dL (0.8-1.7); INTERPRETATION REPORT; Total Protein 6.2 g/dL (6.1-8.1)
[2024-07-20] MEDS: METHYLPREDNISOLONE 125 MG INJ IV SCH (17:00)
[2024-07-20] MEDS: FUROSEMIDE 40 MG/4 ML VIAL IV SCH (21:11)
[2024-07-21 05:35] LABS: Absolute Lymphocytes (CBC) 0.2 K/uL (0.7-4.9); Absolute Monocytes 0.2 K/uL (0.1-1.3); Hemoglobin 10.7 g/dL (12.0-15.0); Lymphocytes % 2.4 % (15.3-44.8); Nucleated Red Blood Cells % 0.2 % (0-0)
[2024-07-21 05:50] LABS: Albumin 2.2 g/dL (3.4-5.0); Anion Gap 9.5 mEq/L (5.0-15.0); Phosphorus 5.4 mg/dL (2.5-4.9); Potassium 4.5 mEq/L (3.5-5.1)
[2024-07-21 05:52] LABS: Absolute Neutrophil 9.2 K/uL (1.8-8.0); Basophils % 0.2 % (0-1.3); Hematocrit 32.2 % (36.0-45.0); MCH 27.9 pg (27.0-35.0); MCHC 33.2 g/dL (32.0-36.0); MCV 84.1 fL (80-100); MPV 8.7 fL (7.6-11.3); Monocytes % 2.6 % (3.3-12.3); Neutrophils % 94.8 % (41.7-73.7); Platelets 126 thou/uL (152-406); RBC Red Blood Cell Count 3.83 M/uL (3.86-4.86); Red Cell Distribution Width 15.2 % (12.1-15.2)
--- NOTE | 2024-07-21 07:11 | RAD REPORT ---
EXAM: Chest Single View HISTORY: 74 years Female pneumonia COMPARISON: 07/19/2024 FINDINGS: LUNGS/PLEURA: Widespread interstitial and airspace disease not significant change from prior. Lung vo lumes are slightly improved. CARDIAC/MEDIASTINUM: Stable enlargement. UPPER ABDOMEN: No significant abnormality. BONES: No acute abnormality. LINES/TUBES/OTHER: Right IJ approach dialysis catheter with tip overlying the right atrium, unchanged . IMPRESSION: No significant change in aeration of lungs compared with 07/19/2024.
--- NOTE | 2024-07-21 09:30 | P.PN ---
Subjective Date of Service: 07/21/24 Chief Complaint: CHF Subjective: No new changes Review of Systems 10-point ROS is otherwise unremarkable Physical Examination - Vital Signs Temperature: 97.8 F Blood Pressure: 141/64 Pulse: 56 Respirations: 23 Pulse Ox (%): 100 - Physical Exam General: Alert, In no apparent distress HEENT: Atraumatic, PERRLA, EOMI Neck: Supple, JVD not distended Respiratory: Clear to auscultation bilaterally, Normal air movement Cardiovascular: Regular rate/rhythm, Normal S1 S2 Gastrointestinal: Normal bowel sounds, No tenderness Musculoskeletal: No tenderness Integumentary: No rashes Neurological: Normal speech, Normal tone, Normal affect Lymphatics: No axilla or inguinal lymphadenopathy - Studies Medications List Reviewed: Yes Assessment And Plan - Current Problems (Diagnosis) (1) Acute on chronic diastolic heart failure Current Visit: Yes Status: Acute Plan: agree with Lasix 80 mg IV BID Continue Coreg Hold Losartan until kidney function improves continue to monitor input and output and electrolytes. (2) CAD (coronary artery disease) Current Visit: Yes Status: Acute Plan: mild leak in troponin most likely type 2 ID from CHF/STEFAN, patient with recent PCI ostial RCA 05/2024 continue to trend Troponin until peak and down trending continue ASA 81 mg daily continue Plavix 75 mg daily continue statin
[2024-07-21] MEDS: CLOPIDOGREL 75 MG TABLET PO SCH (09:34)
[2024-07-21] MEDS: ASPIRIN 81 MG CHEWABLE TABLET PO SCH (09:34)
[2024-07-21 09:55] LABS: Blood Morphology Comment NOT SEEN (NOT SEEN); Platelet Estimate DECR; Platelets Clumped FIBRIN STRANDS; White Blood Cell Scan OK (OK)
[2024-07-21 11:53] LABS: Complement C3 125 mg/dL (83-193)
--- NOTE | 2024-07-21 12:15 | P.CNS ---
Date of Consult: 07/21/24 Reason for Consult: Respiratory failure Chief Complaint: Exacerbation of pulmonary fibrosis and renal failure History of Present Illness: Patient is 74 years of age admitted with worsening dyspnea was found to have end-stage renal disease currently undergoing dialysis and extensive bilateral interstitial changes presumed exacerbation of her underlying pulmonary fibrosis denies any cough phlegm fever or chills feeling a little better patient is on home oxygen Allergies No Known Allergies Allergy (Verified 02/04/24 10:00) Home Medications: Albuterol Inhaler [Ventolin Inhaler] 2 puff IH Q6H PRN 07/14/24 Amiloride HCl [Midamor] 5 mg PO DAILY 07/14/24 Amlodipine [Norvasc] 5 mg PO DAILY 07/14/24 Aspirin Chewable [Aspirin Chewable*] 81 mg PO DAILY 07/14/24 Atorvastatin Calcium [Lipitor] 40 mg PO BEDTIME 07/14/24 Carvedilol [Coreg] 12.5 mg PO BID 07/14/24 Clopidogrel Bisulfate [Plavix] 75 mg PO DAILY 07/14/24 Fluticasone Propion/Salmeterol [Advair 250-50 Diskus] 1 each IH BID PRN 07/14/24 Furosemide [Lasix] 20 mg PO DAILY 07/14/24 Gabapentin 300 mg PO BID 07/14/24 Levothyroxine [Synthroid] 88 mcg PO [id number] 07/14/24 Linagliptin [Tradjenta] 5 mg PO DAILY 07/14/24 Losartan Potassium [Cozaar] 50 mg PO DAILY 07/14/24 Pantoprazole [Protonix Tab] 40 mg PO DAILY 07/14/24 predniSONE [Deltasone] 5 mg PO DAILY 07/14/24 - Past Medical/Surgical History Diabetic: Yes -: DMII -: HTN -: Joint pain to Jez Knees -: CAD -: HLD -: Hypothyroid -: Pulmonary Fibrosis -: appendectomy -: cholecsytectomy -: Coronary Stent x2 most recent May 2024 -: Lap Band - Family History Mother Medical History: Hypertension Father Medical History: Lung disease - Social History Alcohol use: No CD- Drugs: No Caffeine use: Yes Place of Residence: Home Review of Systems 10-point ROS is otherwise unremarkable General: Weakness Respiratory: Cough, Shortness of Breath Physical Examination Temp Pulse Resp BP Pulse Ox 97.8 F 72 19 138/65 95 07/21/24 09:30 07/21/24 12:00 07/21/24 12:00 07/21/24 12:00 07/21/24 12:00 General: Alert, Oriented x3 Respiratory: Crackles/rales Cardiovascular: No edema, Regular rate/rhythm, Normal S1 S2 Gastrointestinal: Normal bowel sounds, Soft and benign, Non-distended - Problems (1) Acute and chronic respiratory failure ([id number]) Current Visit: Yes Status: Acute Plan: Patient is 74 years of age admitted with respiratory failure acute on chronic renal failure worsening interstitial changes presumed exacerbation of pulmonary fibrosis patient is mildly anemic there has been a significant change in her renal function agree with steroids for now reduce dose today to [address] scan reviewed bilateral interstitial changes changed to Vapotherm saturation satisfactory Qualifiers: Respiratory failure complication: hypoxia Qualified Code(s): J96.21 - Acute and chronic respiratory failure with hypoxia
--- NOTE | 2024-07-21 16:33 | P.PN ---
Date of Service: 07/20/24 Subjective patient's respiratory status has improved after hemodialysis. Patient had 2 L removed yesterday during hemodialysis. Patient is breathing much better at this time. Continues on 4 L of oxygen. Will continue to wean off. Hemodialysis will be arranged for tomorrow. Will monitor respiratory status closely in ICU. Physical Examination - Vital Signs Reviewed - Physical Exam General: Alert, In no apparent distress, Oriented x3, Moderate distress Respiratory: Diminished, Crackles/rales Cardiovascular: Regular rate/rhythm, Normal S1 S2, Systolic murmur Gastrointestinal: Normal bowel sounds, Soft and benign, Non-distended, No tenderness Musculoskeletal: No clubbing, No tenderness, Swelling Neurological: patient with generalized weakness Medications List Reviewed: Yes Assessment & Plan - Problems (Diagnosis) (1) Acute hypoxic respiratory failure Current Visit: Yes Status: Acute (2) Acute on chronic diastolic heart failure Current Visit: Yes Status: Acute (3) Acute kidney injury superimposed on chronic kidney disease Current Visit: Yes Status: Acute (4) Idiopathic pulmonary fibrosis Current Visit: Yes Status: Acute (5) ESRD (end stage renal disease) Current Visit: Yes Status: Acute (6) Morbid obesity Current Visit: Yes Status: Acute (7) Obstructive sleep apnea Current Visit: Yes Status: Acute (8) Debility Current Visit: Yes Status: Acute (9) Pulmonary hypertension Current Visit: Yes Status: Acute (10) CAD (coronary artery disease) Current Visit: Yes Status: Acute (11) Diabetes Current Visit: No Status: Acute Diabetes mellitus type: other specified (including ANGEL) - Plan Continue with plan of care as mentioned below: 1. Acute hypoxic respiratory failure secondary to idiopathic pulmonary fibrosis and fluid overload related to acute renal failure; continue with IV steroids and neb treatments and continue with hemodialysis per Nephrology. Plan for hemodialysis in the morning per Nephrology recommendations. 2. Acute on chronic kidney disease; continue with monitor renal function closely. Patient on hemodialysis at this time as patient has progressed to ESRD rapidly. Hopefully this will be reversible but will at this time patient needs hemodialysis. Patient will probably need renal biopsy. Plan for hemodialysis in a.m.. 3. History of heart failure with preserved ejection fraction with moderate pulmonary hypertension; continue with diuresing . Continue monitoring volume status and diurese as necessary with hemodialysis as ordered. 4. Morbid obesity with metabolic syndrome; continue with strict blood pressure and blood sugar control 5. Obesity hypoventilation syndrome; continue with BiPAP support at night and continue with ABG 6. Idiopathic pulmonary fibrosis; continue with nebs and steroids; continue with outpatient pulmonary follow-up 7. Gi and DVT prophylax Discharge Plan: care home home Plan to discharge in: Greater than 2 days - Advance Directives Does patient have a Living Will: No Does patient have a Durable POA for Healthcare: No - Code Status/Comfort Care Code Status Assessed: Yes Code Status: Full Code Critical Care: Yes Time Spent Managing PTS Care (In Minutes): 35
--- NOTE | 2024-07-21 16:35 | P.PN ---
Date of Service: 07/21/24 Subjective patient required high-flow oxygen after oxygen requirement worsened. Patient is scheduled for hemodialysis later today. Arrange for outpatient hemodialysis. Long-term prognosis remains poor. Physical Examination - Vital Signs Reviewed - Physical Exam General: Alert, In no apparent distress, Oriented x3, Moderate distress Respiratory: Diminished, Crackles/rales Cardiovascular: Regular rate/rhythm, Normal S1 S2, Systolic murmur Gastrointestinal: Normal bowel sounds, Soft and benign, Non-distended, No tenderness Musculoskeletal: No clubbing, No tenderness, Swelling Neurological: patient with generalized weakness Medications List Reviewed: Yes Assessment & Plan - Problems (Diagnosis) (1) Acute hypoxic respiratory failure Current Visit: Yes Status: Acute (2) Acute on chronic diastolic heart failure Current Visit: Yes Status: Acute (3) Acute kidney injury superimposed on chronic kidney disease Current Visit: Yes Status: Acute (4) Idiopathic pulmonary fibrosis Current Visit: Yes Status: Acute (5) ESRD (end stage renal disease) Current Visit: Yes Status: Acute (6) Morbid obesity Current Visit: Yes Status: Acute (7) Obstructive sleep apnea Current Visit: Yes Status: Acute (8) Debility Current Visit: Yes Status: Acute (9) Pulmonary hypertension Current Visit: Yes Status: Acute (10) CAD (coronary artery disease) Current Visit: Yes Status: Acute (11) Diabetes Current Visit: No Status: Acute Diabetes mellitus type: other specified (including ANGEL) - Plan Continue with plan of care as mentioned below: 1. Acute hypoxic respiratory failure secondary to idiopathic pulmonary fibrosis and fluid overload related to acute renal failure; continue with IV steroids and neb treatments and continue with hemodialysis per Nephrology. Plan for hemodialysis in the morning per Nephrology recommendations. 2. Acute on chronic kidney disease; continue with monitor renal function closely. Patient on hemodialysis at this time as patient has progressed to ESRD rapidly. Hopefully this will be reversible but will at this time patient needs hemodialysis. Patient will probably need renal biopsy. Plan for hemodialysis in a.m.. 3. History of heart failure with preserved ejection fraction with moderate pulmonary hypertension; continue with diuresing . Continue monitoring volume status and diurese as necessary with hemodialysis as ordered. 4. Morbid obesity with metabolic syndrome; continue with strict blood pressure and blood sugar control 5. Obesity hypoventilation syndrome; continue with BiPAP support at night and continue with ABG 6. Idiopathic pulmonary fibrosis; continue with nebs and steroids; continue with outpatient pulmonary follow-up 7. Gi and DVT prophylax Discharge Plan: custodial home Plan to discharge in: Greater than 2 days - Advance Directives Does patient have a Living Will: No Does patient have a Durable POA for Healthcare: No - Code Status/Comfort Care Code Status Assessed: Yes Code Status: Full Code Critical Care: Yes Time Spent Managing PTS Care (In Minutes): 35
[2024-07-21] MEDS: METHYLPREDNISOLONE 40 MG INJ IV SCH (17:11)
[2024-07-22 06:43] LABS: Absolute Lymphocytes (CBC) 0.3 K/uL (0.7-4.9); Absolute Monocytes 0.4 K/uL (0.1-1.3); Absolute Neutrophil 8.9 K/uL (1.8-8.0); Basophils % 0.2 % (0-1.3); Hematocrit 31.8 % (36.0-45.0); Hemoglobin 10.5 g/dL (12.0-15.0); Lymphocytes % 3.2 % (15.3-44.8); MCH 27.8 pg (27.0-35.0); MCHC 33.1 g/dL (32.0-36.0); MPV 8.6 fL (7.6-11.3); Monocytes % 4.1 % (3.3-12.3); Neutrophils % 92.5 % (41.7-73.7); Nucleated Red Blood Cells % 0.2 % (0-0); Platelets 118 thou/uL (152-406); RBC Red Blood Cell Count 3.79 M/uL (3.86-4.86); Red Cell Distribution Width 15.3 % (12.1-15.2)
[2024-07-22 06:59] LABS: Anion Gap 11.3 mEq/L (5.0-15.0); Potassium 4.3 mEq/L (3.5-5.1)
[2024-07-22] MEDS: CEFAZOLIN 1 GM in NA CHLORIDE 0.9% 50 ML IVPB SCH (09:51)
[2024-07-22 10:35] LABS: Specific Gravity 1.021 (1.005-1.030); Transitional Epithelial <5 /HPF (None Seen); Urine Bacteria <20 /HPF (<20); Urine Bilirubin NEGATIVE (Negative); Urine Blood 3+ (OVER) (Negative); Urine Clarity Extremely Turbid (Clear); Urine Color Yellow (Yellow); Urine Glucose NEGATIVE (Negative); Urine Ketones NEGATIVE (Negative); Urine Micro Reflex YN NO BILL MICROSCOPIC; Urine Nitrite NEGATIVE (Negative); Urine Protein 3+ (Negative); Urine RBC >50 /HPF (None Seen); Urine Urobilinogen Normal (Normal); Urine Yeast (Budding) Many /HPF (None Seen); Urine pH 5.5 (5.0-7.0)
--- NOTE | 2024-07-22 12:32 | P.PN ---
Subjective Date of Service: 07/22/24 Chief Complaint: Exacerbation of pulmonary fibrosis and renal failure Subjective: No chest pain. shortness of breath improving. No nausea or vomiting. No abdominal pain. No obvious bleeding. Looks comfortable in the bed. Objective: General appearance: Alert and comfortable CVS: Normal S1 and S2 Lungs: Clear to auscultation bilaterally Abdomen: Soft, bowel sounds present, no tenderness Extremities: No lower extremity edema Physical Examination - Vital Signs Temperature: 98.5 F Blood Pressure: 141/54 Pulse: 72 Respirations: 24 Pulse Ox (%): 97 - Studies Medications List Reviewed: Yes Assessment And Plan - Plan 1. Acute hypoxic respiratory failure secondary to idiopathic pulmonary fibrosis and fluid overload related to acute renal failure; continue with IV steroids and neb treatments and continue with hemodialysis per Nephrology. 2. Acute on chronic kidney disease; continue with monitor renal function closely. Patient on hemodialysis at this time as patient has progressed to ESRD rapidly. Hopefully this will be reversible but will at this time patient needs hemodialysis. Patient will probably need renal biopsy. Plan for hemodialysis as per nephrology - Renal ultrasound negative. 3. Acute on chronic diastolic heart failure with moderate pulmonary hypertension; continue with diuresing . Continue monitoring volume status and diurese as necessary with hemodialysis as ordered. - CT chest showed edema versus pneumonia. - Echo showed 60 to 65% ejection fraction, grade 2 diastolic dysfunction, moderate pulmonary hypertension. 4. Morbid obesity with metabolic syndrome; continue with strict blood pressure and blood sugar control 5. Obesity hypoventilation syndrome; continue with BiPAP support at night 6. Idiopathic pulmonary fibrosis; continue with nebs and steroids; continue with outpatient pulmonary follow-up 7. Coronary artery disease: Cardiology is on board, continue current medications. 8. UTI: Continue antibiotics. 9. Anemia, thrombocytopenia: Probably related to acute illness, monitor closely. 10. Diabetes mellitus type 2: A1c 7, increased sugars from steroids, continue sliding scale insulin, add Lantus. 11. Elevated uric acid: Management as per nephrology. 12. Elevated troponin: Cardiology following, echo result as above, continue aspirin, Plavix and statin. 13. Hypothyroidism: Continue levothyroxine, TSH is little decreased, need to follow-up with PCP with repeat labs. 14. Elevated PTH: Management as per nephrology. I did discuss all the above plan with the patient, she understands and agrees with the plan. Discussed with nursing staff.
--- NOTE | 2024-07-22 12:38 | P.PN ---
Subjective Date of Service: 07/22/24 Chief Complaint: Exacerbation of pulmonary fibrosis and renal failure Subjective: Improving (Patient is improving feeling better cough is improved) Review of Systems General: Weakness Respiratory: Shortness of Breath Physical Examination - Vital Signs Temperature: 98.5 F Blood Pressure: 141/54 Pulse: 72 Respirations: 24 Pulse Ox (%): 97 - Physical Exam General: Alert, In no apparent distress, Mild distress Respiratory: Clear to auscultation bilaterally, Diminished Cardiovascular: No edema, Normal pulses, Normal S1 S2 - Studies Medications List Reviewed: Yes Assessment And Plan - Current Problems (Diagnosis) (1) Acute and chronic respiratory failure ([id number]) Current Visit: Yes Status: Acute Plan: Patient's condition is stabilized he is improving admitted with an exacerbation of pulmonary fibrosis reduce Solu-Medrol to 40 IV every 12 chest x-ray no significant change labs chemistries reviewed patient undergoing dialysis Qualifiers: Respiratory failure complication: hypoxia Qualified Code(s): J96.21 - Acute and chronic respiratory failure with hypoxia
[2024-07-22] MEDS: INSULIN GLARGINE 100 UNIT/ML SQ SCH (12:45)
[2024-07-22 14:22] LABS: C-ANCA Anti-Proteinase 3 <1.0 AI (<1.0); P-ANCA Anti-Myeloperoxidase Ab <1.0 AI (<1.0)
[2024-07-22 19:09] LABS: Anti-Double Strand DNA Antibod 93 IU/mL (<=4)
[2024-07-22] MEDS: METHYLPREDNISOLONE 40 MG INJ IV SCH (19:57)
[2024-07-22] MEDS: BENZONATATE 100 MG CAP PO PRN (20:16)
[2024-07-23 07:29] LABS: Absolute Lymphocytes (CBC) 0.5 K/uL (0.7-4.9); Absolute Monocytes 0.8 K/uL (0.1-1.3); Absolute Neutrophil 9.6 K/uL (1.8-8.0); Basophils % 0.3 % (0-1.3); Hematocrit 32.1 % (36.0-45.0); Hemoglobin 10.7 g/dL (12.0-15.0); Lymphocytes % 4.3 % (15.3-44.8); MCH 27.8 pg (27.0-35.0); MCHC 33.3 g/dL (32.0-36.0); MCV 83.4 fL (80-100); MPV 8.5 fL (7.6-11.3); Monocytes % 7.7 % (3.3-12.3); Neutrophils % 87.7 % (41.7-73.7); Nucleated Red Blood Cells % 0.2 % (0-0); Platelets 109 thou/uL (152-406); RBC Red Blood Cell Count 3.85 M/uL (3.86-4.86); Red Cell Distribution Width 15.3 % (12.1-15.2)
[2024-07-23] MEDS: INSULIN REGULAR (HUMAN) 100 UNIT/ML SQ SCH (08:08)
--- NOTE | 2024-07-23 08:27 | RAD REPORT ---
EXAMINATION: ONE VIEW CHEST XR CLINICAL INDICATION: Female, 74 years old.,desaturation TECHNIQUE: Frontal chest projection is submitted. Examination is limited by patient positioning and t echnique. COMPARISON: 07/21/2024 FINDINGS: Right IJ dialysis catheter unchanged in position. The lungs show stable pattern of coarsening and pat felix airspace opacification, although suboptimal inspiratory effort somewhat limits evaluation. No pneumothorax or sizable effusion. The heart is normal in size. Mediastinal contours are unremarkable. IMPRESSION: Stable bilateral interstitial and alveolar opacities, could reflect pulmonary edema and/or underlying fibrotic or interstitial lung disease.
[2024-07-23 10:06] LABS: Platelet Estimate DECR; White Blood Cell Scan OK (OK)
[2024-07-23 10:07] LABS: Blood Morphology Comment NOT SEEN (NOT SEEN)
--- NOTE | 2024-07-23 11:42 | P.PN ---
Subjective Date of Service: 07/23/24 Chief Complaint: Exacerbation of pulmonary fibrosis and renal failure Subjective: No chest pain. shortness of breath was worse this morning but improving now. had nausea and vomiting this monring. No abdominal pain. No obvious bleeding. Looks comfortable in the bed. Objective: General appearance: Alert and comfortable CVS: Normal S1 and S2 Lungs: Clear to auscultation bilaterally Abdomen: Soft, bowel sounds present, no tenderness Extremities: No lower extremity edema Physical Examination - Vital Signs Temperature: 98.6 F Blood Pressure: 137/60 Pulse: 69 Respirations: 17 Pulse Ox (%): 100 - Studies Medications List Reviewed: Yes Assessment And Plan - Plan 1. Acute hypoxic respiratory failure secondary to idiopathic pulmonary fibrosis and fluid overload related to acute renal failure; continue with IV steroids and neb treatments and continue with hemodialysis per Nephrology. - Still requiring Vapotherm support. 2. Acute on chronic kidney disease; continue with monitor renal function closely. Patient on hemodialysis at this time as patient has progressed to ESRD rapidly. Hopefully this will be reversible but will at this time patient needs hemodialysis. Patient will probably need renal biopsy. Plan for hemodialysis as per nephrology - Renal ultrasound negative. - CHERRY screen pending, antidsDNA titers high, further evaluation as per nephrology 3. Acute on chronic diastolic heart failure with moderate pulmonary hypertension; continue with diuresing . Continue monitoring volume status and diurese as necessary with hemodialysis as ordered. - CT chest showed edema versus pneumonia. - Echo showed 60 to 65% ejection fraction, grade 2 diastolic dysfunction, moderate pulmonary hypertension. 4. Morbid obesity with metabolic syndrome; continue with strict blood pressure and blood sugar control 5. Obesity hypoventilation syndrome; continue with BiPAP support at night 6. Idiopathic pulmonary fibrosis; continue with nebs and steroids; continue with outpatient pulmonary follow-up 7. Coronary artery disease: Cardiology is on board, continue current medications. 8. UTI: Continue antibiotics. 9. Anemia, thrombocytopenia: Probably related to acute illness, counts stable, monitor closely. 10. Diabetes mellitus type 2: A1c 7, increased sugars from steroids, continue sliding scale insulin, cont Lantus, add mealtime insulin. 11. Elevated uric acid: Management as per nephrology. 12. Elevated troponin: Cardiology following, echo result as above, continue aspirin, Plavix and statin. 13. Hypothyroidism: Continue levothyroxine, TSH is little decreased, need to follow-up with PCP with repeat labs. 14. Elevated PTH: Management as per nephrology. I did discuss all the above plan with the patient, she understands and agrees with the plan. Discussed with family and nursing staff at bedside. Continue to monitor in ICU, total time spent today greater than 40 minutes of critical care time.
--- NOTE | 2024-07-23 12:43 | PN ---
Date of Progress Note: 07/23/2024 Subjective: The patient was admitted to the hospital with anasarca, acute kidney injury. The patient had hematuria and proteinuria. The patient found to have pulmonary renal. The patient has respiratory failure, transferred to ICU. Physical Examination: Vital Signs: Blood pressure 113/54, pulse of 76, afebrile. Chest: Crackles, bilateral. Heart: S1, S2. Systolic murmur. Abdomen: Soft, nontender. Extremities: Trace edema. Neurologic: Alert. No focality. Laboratory Data: WBC 10.9, hemoglobin 10.7, sodium 136, potassium 4, bicarb 29, BUN 59, creatinine 3, GFR of 16, calcium 8.2. Current Medications: The patient on, it includes: 1. Aspirin. 2. Cefazolin. 3. Albuterol. 4. IV iron. 5. Plavix. 6. Atorvastatin. 7. Carvedilol 12.5. 8. Tylenol. 9. Lasix 80 b.i.d. 10. Zofran. 11. Levothyroxine. 12. Fentanyl. 13. Insulin. The patient still oliguric. Assessment And Plan: 1. Acute kidney injury secondary to pulmonary renal, oliguric with respiratory distress. I am going to do another session of dialysis today, then I am going to go ahead and switch her to Sunday, Sunday, Sunday, and we will follow up the patient. 2. Hypertension, utilize the blood pressure for better ultrafiltration. 3. Pulmonary renal syndrome/cardiorenal. Patient was started back on the Plavix. Unfortunately with the Plavix and aspirin, we will not be able to proceed to any kidney biopsy. We will discuss with Pulmonary regarding possibility of transbronchial biopsy and we will follow up. Serology, so far, been negative. 4. Anemia of chronic kidney disease with iron-deficiency anemia. The patient was started on IV iron. Continue ETHAN. We will follow up. 5. Respiratory failure secondary to cardiorenal/pulmonary renal. We will optimize the fluid status. Follow up with Cardiology and Pulmonary. Time spent examining the patient [id number] reviewing that the lab and the radiology placing order discussing the case with the patient discussing the case with the shipping team leader including hospitalist and nursing staff more than 55 minutes KOLE Voice ID: [id number] Report ID: [id number] MTDD
--- NOTE | 2024-07-23 13:16 | EKG ---
Test Date: 2024-07-14 Test Time: 16:18:48 [employer] Sales: [employer] MEASUREMENT RESULTS: Intervals: Rate: 75 FL: 146 QRSD: 76 QT: 352 QTc: 393 [place]: P: 32 FL: 146 QRS: 105 T: 6 INTERPRETIVE STATEMENTS: Normal sinus rhythm Rightward axis Borderline ECG Compared to ECG 02/04/2024 11:31:08 Right-axis deviation now present Left-axis deviation no longer present Myocardial infarct finding no longer present Electronically Signed On 07-23-24 12:52:25 CDT by Juanpablo Acuña
[2024-07-23] MEDS: SOD FERRIC GLUC COMPLX/SUCROSE 250 MG in NA CHLORIDE 0.9% 250 ML IV SCH (14:43)
[2024-07-24 05:50] LABS: Anti-Nuclear Antibody Screen Positive (Negative)
[2024-07-24 06:18] LABS: Anti-Nuclear Antibody Pattern REPORT
[2024-07-24 06:30] LABS: Anion Gap 9.6 mEq/L (5.0-15.0); Potassium 4.6 mEq/L (3.5-5.1)
[2024-07-24 06:37] LABS: Absolute Lymphocytes (CBC) 0.3 K/uL (0.7-4.9); Absolute Monocytes 0.5 K/uL (0.1-1.3); Basophils % 0.1 % (0-1.3); Eosinophils % 0.1 % (0-4.4); Hemoglobin 11.1 g/dL (12.0-15.0); Lymphocytes % 2.3 % (15.3-44.8); MCH 27.2 pg (27.0-35.0); MCHC 32.8 g/dL (32.0-36.0); MCV 83.2 fL (80-100); MPV 9.4 fL (7.6-11.3); Monocytes % 3.5 % (3.3-12.3); Nucleated Red Blood Cells % 0.2 % (0-0); Platelets 82 thou/uL (152-406); RBC Red Blood Cell Count 4.08 M/uL (3.86-4.86); Red Cell Distribution Width 15.1 % (12.1-15.2)
[2024-07-24 09:52] LABS: Blood Morphology Comment NOT SEEN (NOT SEEN); Platelet Estimate DECR; White Blood Cell Scan OK (OK)
[2024-07-24] MEDS ORDERED: dexAMETHasone 10 MG/ML VIAL ONE (09:59)
[2024-07-24] MEDS ORDERED: CLINDAMYCIN 900MG/D5W 900 MG/50 ML IVPB IV ONE (09:59)
[2024-07-24] MEDS ORDERED: NA CHLORIDE 0.9% 500 ML ONE (09:59)
--- NOTE | 2024-07-24 12:41 | P.PN ---
Subjective Date of Service: 07/24/24 Chief Complaint: Exacerbation of pulmonary fibrosis and renal failure Subjective: Improving (Patient is improving still complaining of dry cough) Review of Systems General: Weakness Respiratory: Cough, Shortness of Breath Physical Examination - Vital Signs Temperature: 98.2 F Blood Pressure: 155/63 Pulse: 76 Respirations: 24 Pulse Ox (%): 97 - Physical Exam General: Alert, Oriented x3 Respiratory: Crackles/rales, Expiratory wheezes Cardiovascular: No edema, Regular rate/rhythm, Normal S1 S2 - Studies Medications List Reviewed: Yes Assessment And Plan - Current Problems (Diagnosis) (1) Acute and chronic respiratory failure ([id number]) Current Visit: Yes Status: Acute Plan: Patient admitted with exacerbation of pulmonary fibrosis chest x-ray still shows diffuse interstitial changes patient complaining of cough have added some gabapentin she is so far requiring high flow oxygen has significant desaturation of high flow doubt infection prognosis few poor due to the extensive interstitial lung disease may consider an LTAC change to oral Macrodantin Qualifiers: Respiratory failure complication: hypoxia Qualified Code(s): J96.21 - Acute and chronic respiratory failure with hypoxia
--- NOTE | 2024-07-24 13:53 | P.PN ---
Subjective Date of Service: 07/24/24 Chief Complaint: Exacerbation of pulmonary fibrosis and renal failure Subjective: No chest pain. shortness of breath is improving slowly. No nausea or vomiting. No abdominal pain. No obvious bleeding. Looks comfortable in the bed. Objective: General appearance: Alert and comfortable CVS: Normal S1 and S2 Lungs: Clear to auscultation bilaterally Abdomen: Soft, bowel sounds present, no tenderness Extremities: No lower extremity edema Physical Examination - Vital Signs Temperature: 98.2 F Blood Pressure: 141/63 Pulse: 65 Respirations: 24 Pulse Ox (%): 98 - Studies Medications List Reviewed: Yes Assessment And Plan - Plan 1. Acute hypoxic respiratory failure secondary to idiopathic pulmonary fibrosis and fluid overload related to acute renal failure; continue with IV steroids and neb treatments and continue with hemodialysis per Nephrology. - Still requiring Vapotherm support. 2. Acute on chronic kidney disease; continue with monitor renal function closely. Patient on hemodialysis at this time as patient has progressed to ESRD rapidly. Hopefully this will be reversible but will at this time patient needs hemodialysis. Patient will probably need renal biopsy. Plan for hemodialysis as per nephrology - Renal ultrasound negative. - CHERRY screen +ve, antidsDNA titers high, further evaluation as per nephrology, will need biopsy, d/w Dr. Persaud today, biopsy prob next week 3. Acute on chronic diastolic heart failure with moderate pulmonary hypertension; continue with diuresing . Continue monitoring volume status and diurese as necessary with hemodialysis as ordered. - CT chest showed edema versus pneumonia. - Echo showed 60 to 65% ejection fraction, grade 2 diastolic dysfunction, moderate pulmonary hypertension. 4. Morbid obesity with metabolic syndrome; continue with strict blood pressure and blood sugar control 5. Obesity hypoventilation syndrome; continue with BiPAP support at night 6. Idiopathic pulmonary fibrosis; continue with nebs and steroids; continue with outpatient pulmonary follow-up 7. Coronary artery disease: Cardiology is on board, continue current medications. 8. UTI: Continue antibiotics. 9. Anemia, thrombocytopenia: Probably related to acute illness, counts stable, monitor closely. 10. Diabetes mellitus type 2: A1c 7, increased sugars from steroids, continue sliding scale insulin, cont Lantus, and mealtime insulin. dose adjsuted today 11. Elevated uric acid: Management as per nephrology. 12. Elevated troponin: Cardiology following, echo result as above, continue aspirin, Plavix and statin. 13. Hypothyroidism: Continue levothyroxine, TSH is little decreased, need to follow-up with PCP with repeat labs. 14. Elevated PTH: Management as per nephrology. 15. Anemia: Secondary to acute illness, monitor closely. 16. Hypertension: Adjust medications. I did discuss all the above plan with the patient, she understands and agrees with the plan. Discussed with nursing staff. Continue to monitor in ICU, total time spent today greater than 40 minutes of critical care time.
[2024-07-24] MEDS: INSULIN REGULAR (HUMAN) 100 UNIT/ML SQ SCH (17:24)
[2024-07-24] MEDS: POLYETHYL GLY 3350 17 GM/DOSE PO PRN (17:29)
[2024-07-24] MEDS: NITROFURAN MACRO 100 MG CAP PO SCH (20:15)
[2024-07-24] MEDS ORDERED: PROMETHAZINE INJ 25 MG/ML AMP IV ONE (22:25)
--- NOTE | 2024-07-25 01:00 | PN ---
Date of Progress Note: 07/24/2024 Chief Complaint: Acute kidney injury, anasarca. Subjective: The patient remains in ICU. She has acute on chronic respiratory failure. The patient was found to have pulmonary renal syndrome. She was transferred to ICU for respiratory failure. Review of Systems: Denies chest pain, palpitation. Physical Examination: Lungs: Coarse breath sounds bilateral. Heart: S1, S2. Abdomen: Soft. Extremities: Trace edema. Impression And Plan: 1. Acute kidney injury secondary to pulmonary renal syndrome, oliguric. The patient has respiratory distress. The patient received dialysis yesterday. Continue with dialysis on Sunday, Sunday, Sun day. 2. Hypertension, increased ultrafiltration with dialysis to control volemia. Continue blood pressure medication. 3. Pulmonary renal syndrome as well as cardiorenal syndrome. The patient is on Plavix. The patient is to have transbronchial biopsy. Pulmonary Service is following. 4. Anemia of chronic disease with iron deficiency. The patient was started on IV iron. 5. Respiratory failure secondary to cardiorenal/pulmonary renal syndrome. Ultrafiltration with dialysis. Lasix as needed. Monitor urine output. EB/MODL Voice ID: [id number] Report ID: [id number]
[2024-07-25 05:27] LABS: Absolute Lymphocytes (CBC) 0.4 K/uL (0.7-4.9); Absolute Monocytes 0.6 K/uL (0.1-1.3); Basophils % 0.2 % (0-1.3); Hematocrit 33.3 % (36.0-45.0); Hemoglobin 10.9 g/dL (12.0-15.0); Lymphocytes % 2.5 % (15.3-44.8); MCH 27.5 pg (27.0-35.0); MCHC 32.6 g/dL (32.0-36.0); MCV 84.2 fL (80-100); MPV 9.6 fL (7.6-11.3); Monocytes % 3.8 % (3.3-12.3); Neutrophils % 93.5 % (41.7-73.7); Nucleated Red Blood Cells % 0.1 % (0-0); Platelets 89 thou/uL (152-406); RBC Red Blood Cell Count 3.96 M/uL (3.86-4.86); Red Cell Distribution Width 14.9 % (12.1-15.2)
[2024-07-25 05:53] LABS: Anion Gap 10.6 mEq/L (5.0-15.0); Potassium 4.6 mEq/L (3.5-5.1)
[2024-07-25] MEDS: INSULIN GLARGINE 100 UNIT/ML SQ SCH (08:43)
[2024-07-25] MEDS: INSULIN REGULAR (HUMAN) 100 UNIT/ML SQ SCH (08:43)
[2024-07-25] MEDS ORDERED: INSULIN GLARGINE 100 UNIT/ML SQ SCH (09:00)
--- NOTE | 2024-07-25 13:39 | P.PN ---
Subjective Date of Service: 07/25/24 Chief Complaint: Exacerbation of pulmonary fibrosis and renal failure Subjective: No chest pain. shortness of breath is improving slowly. No nausea or vomiting. No abdominal pain. No obvious bleeding. Looks comfortable in the bed. Objective: General appearance: Alert and comfortable CVS: Normal S1 and S2 Lungs: Clear to auscultation bilaterally Abdomen: Soft, bowel sounds present, no tenderness Extremities: No lower extremity edema Physical Examination - Vital Signs Temperature: 97.6 F Blood Pressure: 116/72 Pulse: 80 Respirations: 18 Pulse Ox (%): 98 - Studies Medications List Reviewed: Yes Assessment And Plan - Plan 1. Acute hypoxic respiratory failure secondary to idiopathic pulmonary fibrosis and fluid overload related to acute renal failure; continue with IV steroids and neb treatments and continue with hemodialysis per Nephrology. - Still requiring Vapotherm support. 2. Acute on chronic kidney disease; continue with monitor renal function closely. Patient on hemodialysis at this time as patient has progressed to ESRD rapidly. Hopefully this will be reversible but will at this time patient needs hemodialysis. Patient will need renal biopsy. - Renal ultrasound negative. - CHERRY screen +ve, antidsDNA titers high, further evaluation as per nephrology, d/w Dr. Persaud 07/24, biopsy prob next week depending on respiratory status 3. Acute on chronic diastolic heart failure with moderate pulmonary hypertension: Continue monitoring volume status and diurese as necessary with hemodialysis - CT chest showed edema versus pneumonia. - Echo showed 60 to 65% ejection fraction, grade 2 diastolic dysfunction, moderate pulmonary hypertension. - WBC little high today which could be from steroids, monitor closely. 4. Morbid obesity with metabolic syndrome; continue with strict blood pressure and blood sugar control 5. Obesity hypoventilation syndrome; continue with BiPAP support at night 6. Idiopathic pulmonary fibrosis; continue with nebs and steroids; continue with outpatient pulmonary follow-up 7. Coronary artery disease: Cardiology is on board, continue current medications. 8. UTI: Continue antibiotics. 9. Anemia, thrombocytopenia: Probably related to acute illness, counts stable, monitor closely. 10. Diabetes mellitus type 2: A1c 7, increased sugars from steroids, continue sliding scale insulin, cont Lantus, and mealtime insulin. dose adjsuted 07/24 11. Elevated uric acid: Management as per nephrology. 12. Elevated troponin: Cardiology following, echo result as above, continue aspirin, Plavix and statin. 13. Hypothyroidism: Continue levothyroxine, TSH is little decreased, need to follow-up with PCP with repeat labs. 14. Elevated PTH: Management as per nephrology. 15. Hypertension: Continue current medications. I did discuss all the above plan with the patient, she understands and agrees with the plan. Discussed with nursing staff. Continue to monitor in ICU, total time spent today greater than 36 minutes of critical care time. 74-year-old patient with acute on chronic heart failure, acute on chronic renal failure, acute hypoxic respiratory failure, currently on dialysis and IV diuretics, on IV steroids for idiopathic pulmonary fibrosis, has UTI, on antibiotics, CHERRY titer and anti-dsDNA positive, discussed with nephrology yesterday, plan for renal biopsy next week if respiratory status stable, still on Vapotherm, continue to monitor in ICU for now.
--- NOTE | 2024-07-26 02:20 | PN ---
Date of Progress Note: 07/25/2024 Chief Complaint: Acute kidney injury, anasarca. Subjective: The patient remains in ICU. She has acute on chronic respiratory failure. She is under going dialysis for acute kidney injury. Review of Systems: Denies chest pain, palpitation. She complains of some dyspnea at rest. Physical Examination: Lungs: Coarse breath sound bilaterally. Heart: S1, S2. Abdomen: Soft. Extremities: Trace edema. Impression And Plan: 1. Acute kidney injury secondary to pulmonary renal syndrome. The patient remains oliguric. She is to have dialysis today with ultrafiltration. Monitor blood pressure during dialysis. Adjust ultrafi ltration goal according to lab results. 2. Hypertension. Continue ultrafiltration with dialysis to control volemia. Continue blood pressure medication. 3. Pulmonary renal syndrome as well as cardiorenal syndrome. The patient is on Plavix. The patient is to have transbronchial biopsy. Pulmonary service is following. 4. Anemia of chronic disease with iron deficiency. The patient was started on IV iron. 5. Respiratory failure secondary to cardiorenal/pulmonary renal syndrome. Ultrafiltration with dialy sis. Monitor urine output. EB/MODL Voice ID: [id number] Report ID: [id number]
[2024-07-26 05:20] LABS: Absolute Lymphocytes (CBC) 0.3 K/uL (0.7-4.9); Absolute Monocytes 0.5 K/uL (0.1-1.3); Absolute Neutrophil 10.4 K/uL (1.8-8.0); Basophils % 0.1 % (0-1.3); Hematocrit 37.8 % (36.0-45.0); Hemoglobin 12.3 g/dL (12.0-15.0); Lymphocytes % 3.1 % (15.3-44.8); MCH 27.5 pg (27.0-35.0); MCHC 32.4 g/dL (32.0-36.0); MCV 84.8 fL (80-100); MPV 10.3 fL (7.6-11.3); Monocytes % 4.6 % (3.3-12.3); Nucleated Red Blood Cells % 0.1 % (0-0); Platelets 100 thou/uL (152-406); RBC Red Blood Cell Count 4.46 M/uL (3.86-4.86); Red Cell Distribution Width 15.4 % (12.1-15.2)
[2024-07-26 05:21] LABS: Neutrophils % 92.2 % (41.7-73.7)
[2024-07-26 05:39] LABS: Anion Gap 13.5 mEq/L (5.0-15.0); Magnesium 2.1 mg/dL (1.6-2.4); Potassium 4.5 mEq/L (3.5-5.1)
--- NOTE | 2024-07-26 11:12 | P.PN ---
Subjective Date of Service: 07/26/24 Chief Complaint: Exacerbation of pulmonary fibrosis and renal failure Subjective: Improving (Patient states she is feeling better still desaturates on minimal exertion) Review of Systems General: Weakness Respiratory: Shortness of Breath Physical Examination - Vital Signs Temperature: 97.7 F Blood Pressure: 133/71 Pulse: 93 Respirations: 22 Pulse Ox (%): 100 - Physical Exam General: Alert, Oriented x3, Mild distress Respiratory: Crackles/rales Cardiovascular: No edema, Regular rate/rhythm - Studies Medications List Reviewed: Yes Assessment And Plan - Current Problems (Diagnosis) (1) Acute and chronic respiratory failure ([id number]) Current Visit: Yes Status: Acute Plan: Patient admitted with exacerbation of pulmonary fibrosis condition stable patien t is on dialysis labs chemistries all reviewed changed to p.o. prednisone repeat chest x-ray ordered still on high flow oxygen stable to be transferred to the floor patient has desaturations on minimal exertion but she recovers quickly Qualifiers: Respiratory failure complication: hypoxia Qualified Code(s): J96.21 - Acute and chronic respiratory failure with hypoxia
--- NOTE | 2024-07-26 11:30 | PN ---
Date of Progress Note: 07/26/2024 Subjective: The patient was admitted with pulmonary renal syndrome. The patient turned to be oliguric. The patient was initiated on dialysis. Patient known to have pulmonary fibrosis, seen by Pulmonary. Physical Examination: Vital Signs: Blood pressure 133/71, pulse of 93. Chest: Crackles bilateral. Heart: S1, S2. Systolic murmur. Abdomen: Soft, nontender. Extremities: Trace edema. Neurologic: Alert. No focality. Laboratory Data: Hemoglobin 12.3. Sodium 135, potassium 4.5, bicarb 25, BUN 51, creatinine 3.4, GFR of 13, calcium 8.5, magnesium 2.1. The patient has positive CHERRY and nephrotic-range proteinuria. Current Medications: The patient on include Macrobid, promethazine, IV iron, Zofran, Solu-Medrol, levothyroxine, calcitriol. Assessment And Plan: 1. Acute kidney injury on chronic kidney disease, nephrotic range proteinuria, positive serology. We will consider biopsy. Discuss with Cardiology. We will stop the Plavix for 5 days. We will try to biopsy the patient next week and we will follow up the patient. 2. Hypertension, controlled, optimal. Continue current treatment. 3. Anemia of chronic kidney disease. No need for ETHAN. 4. Pulmonary renal syndrome. Follow up with Pulmonary. Tapering down the O2 requirement. Discussed the case with Dr. Barry. No indication for any bronchoscopy for the time being. We will follow up. 5. Nephrotic-range proteinuria with positive serology. Plan for biopsy. Time spent examining the patient [id number] reviewing that the lab and the radiology placing order discussing the case with the patient discussing the case with the seal delivery vehicle team technician including hospitalist and nursing staff more than 55 minutes KOLE Voice ID: [id number] Report ID: [id number] JESSY
--- NOTE | 2024-07-26 13:12 | RAD REPORT ---
EXAM: Chest Single View HISTORY: 74 years Female resp failure COMPARISON: 07/23/2024 FINDINGS: LUNGS/PLEURA: Diffusely coarsened pulmonary system with bilateral airspace opacities. These are simil ar to prior. CARDIAC/MEDIASTINUM: Stable enlargement. UPPER ABDOMEN: No significant abnormality. BONES: No acute abnormality. LINES/TUBES/OTHER: Right IJ approach dialysis catheter in similar position. IMPRESSION: No significant change in aeration of the lungs with possible acute on chronic lung disease.
[2024-07-26 15:26] LABS: Phosphorus 5.8 mg/dL (2.5-4.9); Potassium 4.4 mEq/L (3.5-5.1)
[2024-07-26] MEDS: predniSONE 20 MG TAB PO SCH (20:43)
[2024-07-27 05:48] LABS: Absolute Lymphocytes (CBC) 0.4 K/uL (0.7-4.9); Absolute Monocytes 0.7 K/uL (0.1-1.3); Absolute Neutrophil 11.8 K/uL (1.8-8.0); Basophils % 0.2 % (0-1.3); Hematocrit 33.6 % (36.0-45.0); Hemoglobin 10.8 g/dL (12.0-15.0); Lymphocytes % 2.9 % (15.3-44.8); MCH 27.2 pg (27.0-35.0); MCHC 32.3 g/dL (32.0-36.0); MCV 84.1 fL (80-100); MPV 9.9 fL (7.6-11.3); Monocytes % 5.5 % (3.3-12.3); Neutrophils % 91.4 % (41.7-73.7); Platelets 78 thou/uL (152-406); RBC Red Blood Cell Count 3.99 M/uL (3.86-4.86); Red Cell Distribution Width 15.1 % (12.1-15.2)
[2024-07-27 05:56] LABS: Blood Morphology Comment NOT SEEN (NOT SEEN); Platelet Estimate DECR; White Blood Cell Scan OK (OK)
[2024-07-27 06:02] LABS: Anion Gap 12.4 mEq/L (5.0-15.0); Magnesium 2.1 mg/dL (1.6-2.4); Potassium 4.4 mEq/L (3.5-5.1)
--- NOTE | 2024-07-27 08:33 | RAD REPORT ---
EXAMINATION: ONE VIEW CHEST XR CLINICAL INDICATION: resp failure TECHNIQUE: Frontal chest projection is submitted. Examination is limited by patient positioning and t echnique. COMPARISON: 07/26/2024 FINDINGS: Extensive bilateral pulmonary opacities are again noted similar to prior study which may represent pu lmonary edema, pneumonia or ARDS. The heart is moderately enlarged. No displaced fractures identified. Right-sided venous catheters unchanged in position. IMPRESSION: Stable chest since comparative examinations.
--- NOTE | 2024-07-27 09:51 | PN ---
Date of Progress Note: 07/27/2024 Subjective: The patient still complaining of some shortness of breath. The patient had dialysis Sunday, tolerated the dialysis with 2.5 L. Physical Examination: Vital Signs: Blood pressure 145/65, pulse of 74. Chest: Crackles bilateral. Heart: S1, S2 systolic murmur. Abdomen: Soft, nontender. Extremities: No edema. Neurologic: Alert. No focality. Laboratory Data: Hemoglobin 10.8. Sodium 133, potassium 4.4, bicarb 26, BUN 76, creatinine 4.4, calcium 8.3, phosphorus 5.8, magnesium 2.1. Current Medications: The patient on include, 1. Promethazine. 2. Heparin. 3. Tylenol. 4. Zofran. 5. Pantoprazole. 6. Levothyroxine. 7. Prednisone. Assessment And Plan: 1. Acute kidney injury, nephrotic range of proteinuria, positive CHERRY, possible secondary to pulmonary renal syndrome, oliguric, dialysis dependent. I am going to continue with dialysis Sunday, Sunday, Sunday. We will arrange for dialysis tomorrow and we will continue to monitor. The patient agreed on kidney biopsy. We will hold the Plavix and aspirin for the time being. Last dose was yesterday. We will monitor the patient and plan for the biopsy either or Sunday and we will monitor. If the patient could not tolerate the biopsy unfortunately, which is could be expected with her respiratory status at that time, we will continue to monitor the patient. The patient cleared from the Renal standpoint for downgrading. 2. Hypertension, controlled, optimal. Continue current treatment. 3. Anemia of chronic kidney disease. Hemoglobin stable. No need for ETHAN for the time being. 4. Secondary hyperparathyroidism. Phosphorus only 5.8. We will continue to monitor. 5. Pulmonary renal syndrome with pulmonary fibrosis. Will follow up with Pulmonary. 6. Nephrotic range proteinuria, serology positive for CHERRY. I am waiting for kidney biopsy. We will start low dose of MEGHANN inhibitor and will follow up. Time spent examining the patient [id number] reviewing that the lab and the radiology placing order discussing the case with the patient discussing the case with the steam bone press tender including hospitalist and nursing staff more than 55 minutes KOLE Voice ID: [id number] Report ID: [id number] [id number]
--- NOTE | 2024-07-27 17:07 | P.PN ---
Date of Service: 07/27/24 Subjective No new changes No chest pain. Still on Vapotherm. shortness of breath is improving slowly. No nausea or vomiting. No abdominal pain. No obvious bleeding. Looks comfortable in the bed. Review of systems As per HPI 10 point review of systems otherwise Physical Examination - Vital Signs Temperature: 97.6 F Blood Pressure: 116/72 Pulse: 80 Respirations: 18 Pulse Ox (%): 98 Objective: General appearance: Alert and comfortable. (Vapotherm) CVS: Normal S1 and S2 Lungs: Clear to auscultation bilaterally Abdomen: Soft, bowel sounds present, no tenderness Extremities: No lower extremity edema - Studies Medications List Reviewed: Yes Assessment And Plan - Plan 1. Acute hypoxic respiratory failure secondary to idiopathic pulmonary fibrosis and fluid overload related to acute renal failure; continue steroids and neb treatments and continue with hemodialysis per Nephrology. Chest x-ray reviewed - Still requiring Vapotherm support. 2. Acute on chronic kidney disease; continue with monitor renal function closely. Patient on hemodialysis at this time as patient has progressed to ESRD rapidly. Hopefully this will be reversible but will at this time patient needs hemodialysis. Patient will need renal biopsy. - Renal ultrasound negative. - CHERRY screen +ve, antidsDNA titers high, further evaluation as per nephrology, d/w Dr. Persaud 07/24, biopsy prob next week depending on respiratory status 3. Acute on chronic diastolic heart failure with moderate pulmonary hypertension: Continue monitoring volume status and diurese as necessary with hemodialysis - CT chest showed edema versus pneumonia. - Echo showed 60 to 65% ejection fraction, grade 2 diastolic dysfunction, moderate pulmonary hypertension. - WBC little high today which could be from steroids, monitor closely. 4. Morbid obesity with metabolic syndrome; continue with strict blood pressure and blood sugar control 5. Obesity hypoventilation syndrome; continue with BiPAP support at night 6. Idiopathic pulmonary fibrosis; continue with nebs and steroids; continue with outpatient pulmonary follow-up 7. Coronary artery disease: Cardiology is on board, continue current medications. 8. UTI: Continue antibiotics. 9. Anemia, thrombocytopenia: Probably related to acute illness, counts stable, monitor closely. 10. Diabetes mellitus type 2: A1c 7, increased sugars from steroids, continue sliding scale insulin, cont Lantus, and mealtime insulin. dose adjsuted 07/24 11. Elevated uric acid: Management as per nephrology. 12. Elevated troponin: Cardiology following, echo result as above, continue aspirin, Plavix and statin. 13. Hypothyroidism: Continue levothyroxine, TSH is little decreased, need to follow-up with PCP with repeat labs. 14. Elevated PTH: Management as per nephrology. 15. Hypertension: Continue current medications. I did discuss all the above plan with the patient, she understands and agrees with the plan. Discussed with nursing staff. Continue to monitor in ICU, total time spent today greater than 36 minutes of critical care time. DVT prophylaxis with SCDs
[2024-07-28 07:44] LABS: Albumin 2.3 g/dL (3.4-5.0); Anion Gap 11.4 mEq/L (5.0-15.0); Phosphorus 6.2 mg/dL (2.5-4.9); Potassium 4.4 mEq/L (3.5-5.1)
[2024-07-28] MEDS: lisinopriL 5 MG TAB PO SCH (08:54)
--- NOTE | 2024-07-28 12:17 | P.PN ---
Subjective Date of Service: 07/28/24 Chief Complaint: Exacerbation of pulmonary fibrosis and renal failure Subjective: No chest pain. shortness of breath is improving slowly. No nausea or vomiting. No abdominal pain. No obvious bleeding. Looks comfortable in the bed. Objective: General appearance: Alert and comfortable CVS: Normal S1 and S2 Lungs: Clear to auscultation bilaterally Abdomen: Soft, bowel sounds present, no tenderness Extremities: No lower extremity edema Physical Examination - Vital Signs Temperature: 97.4 F Blood Pressure: 133/53 Pulse: 70 Respirations: 17 Pulse Ox (%): 97 - Studies Medications List Reviewed: Yes Assessment And Plan - Plan 1. Acute hypoxic respiratory failure secondary to idiopathic pulmonary fibrosis and fluid overload related to acute renal failure; continue with steroids and neb treatments and continue with hemodialysis per Nephrology. - Still requiring Vapotherm support. 2. Acute on chronic kidney disease; continue with monitor renal function closely. Patient on hemodialysis at this time as patient has progressed to ESRD rapidly. Hopefully this will be reversible but will at this time patient needs hemodialysis. Patient will need renal biopsy. - Renal ultrasound negative. - CHERRY screen +ve, antidsDNA titers high, further evaluation as per nephrology, d/w Dr. Persaud 07/24, biopsy prob this depending on respiratory status 3. Acute on chronic diastolic heart failure with moderate pulmonary hypertension: Continue monitoring volume status with hemodialysis - CT chest showed edema versus pneumonia. - Echo showed 60 to 65% ejection fraction, grade 2 diastolic dysfunction, moderate pulmonary hypertension. - WBC high which could be from steroids, wbc improving monitor closely. 4. Morbid obesity with metabolic syndrome; continue with strict blood pressure and blood sugar control 5. Obesity hypoventilation syndrome; continue with BiPAP support at night 6. Idiopathic pulmonary fibrosis; continue with nebs and steroids; continue with outpatient pulmonary follow-up 7. Coronary artery disease: Cardiology is on board, continue current medications. 8. UTI: Continue antibiotics. 9. Anemia, thrombocytopenia: Probably related to acute illness, counts stable, monitor closely. 10. Diabetes mellitus type 2: A1c 7, increased sugars from steroids, continue sliding scale insulin, cont Lantus, and mealtime insulin 11. Elevated uric acid: Management as per nephrology. 12. Elevated troponin: Cardiology following, echo result as above, continue aspirin, Plavix and statin. 13. Hypothyroidism: Continue levothyroxine, TSH is little decreased, need to follow-up with PCP with repeat labs. 14. Elevated PTH: Management as per nephrology. 15. Hypertension: Continue current medications. I did discuss all the above plan with the patient, she understands and agrees with the plan. Discussed with nursing staff. Continue to monitor in ICU
[2024-07-28] MEDS: MIDODRINE HCL 5 MG TABLET PO SCH (18:21)
--- NOTE | 2024-07-29 01:17 | PN ---
Date of Progress Note: 07/28/2024 Chief Complaint: Acute kidney injury. Subjective: The patient remains in ICU. She has severe dyspnea, complaining of dyspnea at rest and with mild activities. She is bedbound. The patient is started on hemodialysis. She tolerates ultra filtration and dialysis is done today. Review of Systems: Denies chest pain, palpitation. Physical Examination: Lungs: Crackles bilaterally. Heart: S1, S2. Systolic murmur 2/6, left lower sternal border. Abdomen: Soft, benign. Extremities: No edema. Impression And Plan: 1. Acute kidney injury. Urine output has not improved and renal function is not improving. BUN is 7 6, creatinine 4.4. The patient has nephrotic range proteinuria. CHERRY is positive. The patient likel y has pulmonary renal syndrome, although she may need further workup for positive CHERRY to rule out lup us nephritis. The patient likely will need renal biopsy and she agreed on renal biopsy, plan is to h old Plavix and aspirin prior to biopsy, and this will be scheduled during this admission. Continue t o monitor renal function and re-evaluate pending serology test. 2. Hypertension. Blood pressure is controlled. Continue current treatment. 3. Anemia of chronic disease. Hemoglobin level is stable. No need for ETHAN. Monitor hemoglobin leve l. 4. Secondary hyperparathyroidism. Phosphorus 5.8. Continue to monitor. 5. Pulmonary renal syndrome with pulmonary fibrosis. The patient has been seen by port steward. 6. Nephrotic range proteinuria. Serology positive for CHERRY. Kidney biopsy will be arranged, although at this point the patient was taken off Plavix and aspirin. EB/MODL Voice ID: [id number] Report ID: [id number]
[2024-07-29 05:13] LABS: Albumin 2.3 g/dL (3.4-5.0); Anion Gap 9.3 mEq/L (5.0-15.0); Phosphorus 5.4 mg/dL (2.5-4.9); Potassium 4.3 mEq/L (3.5-5.1)
--- NOTE | 2024-07-29 11:33 | PN ---
The patient was admitted with acute kidney injury, respiratory failure secondary to lung fibrosis. The patient's workup showed positive CHERRY. The patient was diuresed. The patient ended up requiring to initiate renal replacement therapy as the patient was oliguric yesterday on dialysis. The patient had low blood pressure. The patient recently was started on lisinopril for the nephrotic range proteinuria. Yesterday, because of the blood pressure, the patient was started on midodrine. Blood pressure stabilized. The patient is still requiring high-flow oxygenation. Physical Examination: Vital Signs: Blood pressure 137/54, pulse of 62. Chest: Crackles bilateral. Heart: S1, S2. Systolic murmur. Abdomen: Soft, nontender. Extremities: Trace edema. Neurologic: Alert. No focality. Laboratory Data: WBC 12.9, hemoglobin 10.8. Sodium 135, potassium 4.3, bicarb 30, BUN 48, creatinine 3.5. This is post dialysis. Calcium 8.5, phosphorus 5.4, albumin 2.3. Corrected calcium is 9.4. Current Medications: The patient is on include: 1. Albuterol. 2. Midodrine 10 t.i.d. 3. Lisinopril. 4. Tylenol. 5. Ipratropium. 6. Pantoprazole. 7. Levothyroxine. 8. Insulin. Assessment And Plan: 1. Acute kidney injury secondary to pulmonary renal with nephrotic range proteinuria, dialysis dependent and oliguric. I am going to continue dialysis Sunday, Sunday, Sunday and we will follow up. The patient is scheduled for kidney biopsy, or Sunday depending on the availability. Aspirin and Plavix have been discontinued since Sunday. We will follow up. 2. Hypertension. Currently, blood pressure on the lower side. Discontinue lisinopril. We will continue midodrine. 3. Pulmonary renal syndrome. As above, discussed the case with Pulmonary. No indication for any pulse steroids for the time being. 4. Anemia of chronic kidney disease. H and H have been stable. I do not see the need for ETHAN for the time being. 5. Secondary hyperparathyroidism. Phosphorus trending down. We will continue to monitor. 6. Nephrotic range proteinuria. Unfortunately could not tolerate lisinopril because of the low blood pressure. We will keep holding. Time spent examining the patient [id number] reviewing that the lab and the radiology placing order discussing the case with the patient discussing the case with the steam press operator including hospitalist and nursing staff more than 55 minutes KOLE Voice ID: [id number] Report ID: [id number] MTDD
--- NOTE | 2024-07-29 11:59 | P.PN ---
Subjective Date of Service: 07/29/24 Chief Complaint: Exacerbation of pulmonary fibrosis and renal failure Subjective: No chest pain. shortness of breath is much better. No nausea or vomiting. No abdominal pain. No obvious bleeding. Looks comfortable in the bed. Objective: General appearance: Alert and comfortable CVS: Normal S1 and S2 Lungs: Clear to auscultation bilaterally Abdomen: Soft, bowel sounds present, no tenderness Extremities: No lower extremity edema Physical Examination - Vital Signs Temperature: 97.4 F Blood Pressure: 125/49 Pulse: 57 Respirations: 11 Pulse Ox (%): 100 - Studies Medications List Reviewed: Yes Assessment And Plan - Plan 1. Acute hypoxic respiratory failure secondary to idiopathic pulmonary fibrosis and fluid overload related to acute renal failure -continue with steroids and neb treatments and continue with hemodialysis per Nephrology. - Still requiring Vapotherm support. 2. Acute on chronic kidney disease; continue with monitor renal function closely. Patient on hemodialysis at this time as patient has progressed to ESRD rapidly. Hopefully this will be reversible but will at this time patient needs hemodialysis. Patient will need renal biopsy. - Renal ultrasound negative. - CHERRY screen +ve, antidsDNA titers high, further evaluation as per nephrology - biopsy prob this or sunday depending 3. Acute on chronic diastolic heart failure with moderate pulmonary hypertension: Continue monitoring volume status with hemodialysis - CT chest showed edema versus pneumonia. - Echo showed 60 to 65% ejection fraction, grade 2 diastolic dysfunction, moderate pulmonary hypertension. - WBC high which could be from steroids, up and down 4. Morbid obesity with metabolic syndrome; continue with strict blood pressure and blood sugar control 5. Obesity hypoventilation syndrome; continue with BiPAP support at night 6. Idiopathic pulmonary fibrosis; continue with nebs and steroids; continue with outpatient pulmonary follow-up 7. Coronary artery disease: Cardiology is on board, continue current medications. 8. UTI: done with antibiotics. 9. Anemia, thrombocytopenia: Probably related to acute illness, counts stable, monitor closely. 10. Diabetes mellitus type 2: A1c 7, increased sugars from steroids, continue sliding scale insulin, cont Lantus, and mealtime insulin 11. Elevated uric acid: Management as per nephrology. 12. Elevated troponin: Cardiology following, echo result as above, continue statin. aspirin, and Plavix on hold for renal biopsy 13. Hypothyroidism: Continue levothyroxine, TSH is little decreased, need to follow-up with PCP with repeat labs. 14. Elevated PTH: Management as per nephrology. 15. Hypertension: she is requiring midodrine now with dialysis I did discuss all the above plan with the patient, she understands and agrees with the plan. Discussed with nursing staff. Continue to monitor in ICU
[2024-07-29] MEDS: MIDODRINE HCL 5 MG TABLET PO SCH (13:24)
[2024-07-30 05:29] LABS: Absolute Lymphocytes (CBC) 0.4 K/uL (0.7-4.9); Absolute Monocytes 0.7 K/uL (0.1-1.3); Absolute Neutrophil 13.8 K/uL (1.8-8.0); Eosinophils % 0.1 % (0-4.4); Hematocrit 30.6 % (36.0-45.0); Hemoglobin 10.2 g/dL (12.0-15.0); Lymphocytes % 2.9 % (15.3-44.8); MCH 27.8 pg (27.0-35.0); MCHC 33.4 g/dL (32.0-36.0); MCV 83.4 fL (80-100); MPV 9.9 fL (7.6-11.3); Monocytes % 4.4 % (3.3-12.3); Neutrophils % 92.6 % (41.7-73.7); Nucleated Red Blood Cells % 0.1 % (0-0); Platelets 87 thou/uL (152-406); RBC Red Blood Cell Count 3.67 M/uL (3.86-4.86); Red Cell Distribution Width 15.4 % (12.1-15.2)
[2024-07-30 05:51] LABS: Albumin 2.3 g/dL (3.4-5.0); Anion Gap 10.8 mEq/L (5.0-15.0); Phosphorus 5.8 mg/dL (2.5-4.9); Potassium 4.8 mEq/L (3.5-5.1)
--- NOTE | 2024-07-30 12:11 | P.PN ---
Subjective Date of Service: 07/30/24 Chief Complaint: Exacerbation of pulmonary fibrosis and renal failure Subjective: No chest pain. shortness of breath is much better. No nausea or vomiting. No abdominal pain. No obvious bleeding. Looks comfortable in the bed. Objective: General appearance: Alert and comfortable CVS: Normal S1 and S2 Lungs: Clear to auscultation bilaterally Abdomen: Soft, bowel sounds present, no tenderness Extremities: No lower extremity edema Physical Examination - Vital Signs Temperature: 97.2 F Blood Pressure: 134/44 Pulse: 64 Respirations: 24 Pulse Ox (%): 66 - Studies Medications List Reviewed: Yes Assessment And Plan - Plan 1. Acute hypoxic respiratory failure secondary to idiopathic pulmonary fibrosis and fluid overload related to acute renal failure -continue with steroids and neb treatments and continue with hemodialysis per Nephrology. - Still requiring Vapotherm support. 2. Acute on chronic kidney disease; continue with monitor renal function closely. Patient on hemodialysis at this time as patient has progressed to ESRD rapidly. Hopefully this will be reversible but will at this time patient needs hemodialysis. Patient will need renal biopsy. - Renal ultrasound negative. - CHERRY screen +ve, antidsDNA titers high, further evaluation as per nephrology - biopsy prob this or sunday depending 3. Acute on chronic diastolic heart failure with moderate pulmonary hypertension: Continue monitoring volume status with hemodialysis - CT chest showed edema versus pneumonia. - Echo showed 60 to 65% ejection fraction, grade 2 diastolic dysfunction, moderate pulmonary hypertension. - WBC high which could be from steroids, up and down 4. Morbid obesity with metabolic syndrome; continue with strict blood pressure and blood sugar control 5. Obesity hypoventilation syndrome; continue with BiPAP support at night 6. Idiopathic pulmonary fibrosis; continue with nebs and steroids; continue with outpatient pulmonary follow-up 7. Coronary artery disease: Cardiology is on board, continue current medications. 8. UTI: done with antibiotics. 9. Anemia, thrombocytopenia: Probably related to acute illness, counts stable, monitor closely. 10. Diabetes mellitus type 2: A1c 7, increased sugars from steroids, BG getting better with decresing steroids, continue sliding scale insulin, cont Lantus, DC mealtime insulin 11. Elevated uric acid: Management as per nephrology. 12. Elevated troponin: Cardiology following, echo result as above, continue statin. aspirin, and Plavix on hold for renal biopsy 13. Hypothyroidism: Continue levothyroxine, TSH is little decreased, need to follow-up with PCP with repeat labs. 14. Elevated PTH: Management as per nephrology. 15. Hypertension: she is requiring midodrine now with dialysis I did discuss all the above plan with the patient, she understands and agrees with the plan. Discussed with nursing staff. Continue to monitor in ICU
--- NOTE | 2024-07-30 12:56 | P.PN ---
Subjective Date of Service: 07/30/24 Chief Complaint: Exacerbation of pulmonary fibrosis and renal failure Condition stable no change still requiring high flow oxygen desat on minimal exertion Review of Systems General: Weakness Respiratory: Shortness of Breath Physical Examination - Vital Signs Temperature: 97.2 F Blood Pressure: 134/44 Pulse: 64 Respirations: 24 Pulse Ox (%): 66 - Physical Exam General: Alert, Mild distress Respiratory: Crackles/rales Cardiovascular: No edema, Regular rate/rhythm, Normal S1 S2 - Studies Medications List Reviewed: Yes Assessment And Plan - Current Problems (Diagnosis) (1) Acute and chronic respiratory failure ([id number]) Current Visit: Yes Status: Acute Plan: Patient admitted with exacerbation of pulmonary fibrosis associated with renal failure currently on dialysis no change in her condition still has extensive interstitial lung disease prognosis poor titrate side to 85 to 90% reduce dose of prednisone to 10 mg twice a day no change on 40 mg of prednisone DC as needed nebulizers prognosis poor titrate sat 85 to 90% comfort/hospice care Qualifiers: Respiratory failure complication: hypoxia Qualified Code(s): J96.21 - Acute and chronic respiratory failure with hypoxia
--- NOTE | 2024-07-30 15:13 | PN ---
Date of Progress Note: 07/30/2024 Subjective: The patient was admitted with acute kidney injury, unknown etiology, questionable of pulmonary renal. The patient was found to have hematuria with nephrotic range proteinuria. The patient was started on diuresis, but then the patient required to be initiated on renal replacement therapy. The patient tolerated. The patient had incident of low blood pressure. Losartan has been discontinued today. Patient seen on dialysis, tolerating the dialysis. Patient on midodrine. Physical Examination: Vital Signs: Blood pressure 134/44, pulse of 64, afebrile. Chest: Crackles bilateral. Heart: S1, S2. Systolic murmur. Abdomen: Soft, nontender. Extremities: Trace edema. Neurologic: Alert. No focality. Laboratory Data: For the patient, WBC 14.9, hemoglobin 10.2, platelets of 92. Sodium 131, potassium 4.8, bicarb 27, BUN 62, creatinine 4.7, calcium 8.1, phosphorus 5.8. Current Medications: The patient on include heparin, atorvastatin, Tylenol, Zofran, pantoprazole, levothyroxine, prednisone 20, hydrocodone. Assessment And Plan: 1. Acute kidney injury with nephrotic range of proteinuria, normal size kidney, questionable pulmonary renal, positive CHERRY, oliguric. We will continue dialysis for now Sunday, Sunday, Sunday. The patient is scheduled for biopsy on Sunday. Aspirin and Plavix have been held since the weekend. We will hold the heparin for tomorrow and we will follow up the patient. We will arrange to give DDAVP on the day of the procedure given the thrombocytopenia and we will follow up. It is going to be critical biopsy given the respiratory status of the patient. We will follow up. 2. Hypertension with incident of low blood pressure. Keep holding losartan. Continue midodrine. We will follow up. 3. Anemia of chronic kidney disease. Start the patient on ETHAN. 4. Lung fibrosis, questionable of pulmonary renal. Follow up with Pulmonary. Continue oxygenation. 5. Nephrotic range proteinuria. As above, we will arrange for kidney biopsy. Time spent examining the patient [id number] reviewing data lab and the radiology placing orders or discussing the case with the family daughter by bedside discussing the case with the child care team lead including hospitalist and nursing staff more than 55-minute MERCEDES/JAN Voice ID: [id number] Report ID: [id number] MTDJosemanuel
[2024-07-30] MEDS: HEPARIN 5000 UNIT/ML 1 ML VIAL SQ SCH (20:03)
[2024-07-30] MEDS: predniSONE 10 MG TAB PO SCH (20:03)
[2024-07-31 05:18] LABS: Absolute Lymphocytes (CBC) 0.5 K/uL (0.7-4.9); Absolute Monocytes 0.9 K/uL (0.1-1.3); Absolute Neutrophil 14.9 K/uL (1.8-8.0); Basophils % 0.1 % (0-1.3); Eosinophils % 0.2 % (0-4.4); Hematocrit 31.9 % (36.0-45.0); Hemoglobin 10.4 g/dL (12.0-15.0); Lymphocytes % 3.2 % (15.3-44.8); MCH 27.3 pg (27.0-35.0); MCHC 32.4 g/dL (32.0-36.0); MCV 84.2 fL (80-100); MPV 9.8 fL (7.6-11.3); Monocytes % 5.7 % (3.3-12.3); Neutrophils % 90.8 % (41.7-73.7); Nucleated Red Blood Cells % 0.1 % (0-0); Platelets 85 thou/uL (152-406); RBC Red Blood Cell Count 3.79 M/uL (3.86-4.86); Red Cell Distribution Width 15.4 % (12.1-15.2)
[2024-07-31 05:37] LABS: Albumin 2.5 g/dL (3.4-5.0); Anion Gap 7.3 mEq/L (5.0-15.0); Phosphorus 5.1 mg/dL (2.5-4.9); Potassium 4.3 mEq/L (3.5-5.1)
[2024-07-31 05:42] LABS: Band Neutrophils 1 % (0-1); Differential Total Cells Count 100; Eosinophils 1 % (0-3); Lymphocytes 8 % (15-42); Monocytes 1 % (0-10); Segmented Neutrophils 89 % (40-80)
[2024-07-31 05:43] LABS: Blood Morphology Comment NOT SEEN (NOT SEEN); Platelet Estimate DECR
[2024-07-31] MEDS: CLOPIDOGREL 75 MG TABLET PO SCH (08:31)
--- NOTE | 2024-07-31 09:46 | RAD REPORT ---
Procedure: Chest Single View HISTORY: Cough COMPARISON: July 27, 2024 FINDINGS: Equivocal mild improvement in the diffuse bilateral pulmonary opacities No significant pleural effusion noted. The heart remains enlarged. Central venous catheter in place
--- NOTE | 2024-07-31 12:22 | P.PN ---
Subjective Date of Service: 07/31/24 Chief Complaint: Exacerbation of pulmonary fibrosis and renal failure Patient is improving oxygen requirements have declined she is 98% on 2 L Review of Systems General: Weakness Respiratory: Shortness of Breath Physical Examination - Vital Signs Temperature: 97.4 F Blood Pressure: 132/67 Pulse: 93 Respirations: 21 Pulse Ox (%): 97 - Physical Exam General: Alert, Oriented x3 Respiratory: Diminished, Crackles/rales Cardiovascular: No edema, Regular rate/rhythm - Studies Medications List Reviewed: Yes Assessment And Plan - Current Problems (Diagnosis) (1) Acute and chronic respiratory failure ([id number]) Current Visit: Yes Status: Acute Plan: Patient is doing better today she is on 2 L of oxygen with 98% saturation chest x-ray shows interstitial changes white count is still mildly elevated labs reviewed orders reviewed no change stable to be transferred to the floor start physical therapy renal biopsy was canceled patient high risk also the overall prognosis is poor due to extensive interstitial lung disease patient is on low- dose prednisone Qualifiers: Respiratory failure complication: hypoxia Qualified Code(s): J96.21 - Acute and chronic respiratory failure with hypoxia
--- NOTE | 2024-07-31 14:01 | P.PN ---
Subjective Date of Service: 07/31/24 Chief Complaint: Exacerbation of pulmonary fibrosis and renal failure Subjective: No chest pain. shortness of breath is much better. No nausea or vomiting. No abdominal pain. No obvious bleeding. Looks comfortable in the bed. Objective: General appearance: Alert and comfortable CVS: Normal S1 and S2 Lungs: Clear to auscultation bilaterally Abdomen: Soft, bowel sounds present, no tenderness Extremities: No lower extremity edema Physical Examination - Vital Signs Temperature: 97.4 F Blood Pressure: 132/67 Pulse: 93 Respirations: 21 Pulse Ox (%): 97 - Studies Medications List Reviewed: Yes Assessment And Plan - Plan 1. Acute hypoxic respiratory failure secondary to idiopathic pulmonary fibrosis and fluid overload related to acute renal failure -continue with steroids and neb treatments and continue with hemodialysis per Nephrology. - Still requiring Vapotherm support. 2. Acute on chronic kidney disease; continue with monitor renal function closely. Patient on hemodialysis at this time as patient has progressed to ESRD rapidly. Hopefully this will be reversible but will at this time patient needs hemodialysis. - Renal ultrasound negative. - CHERRY screen +ve, antidsDNA titers high, further evaluation as per nephrology - biopsy post poned for now 3. Acute on chronic diastolic heart failure with moderate pulmonary hypertension: Continue monitoring volume status with hemodialysis - CT chest showed edema versus pneumonia. - Echo showed 60 to 65% ejection fraction, grade 2 diastolic dysfunction, moderate pulmonary hypertension. - WBC high which could be from steroids, up and down 4. Morbid obesity with metabolic syndrome; continue with strict blood pressure and blood sugar control 5. Obesity hypoventilation syndrome; continue with BiPAP support at night 6. Idiopathic pulmonary fibrosis; continue with nebs and steroids; continue with outpatient pulmonary follow-up 7. Coronary artery disease: Cardiology is on board, continue current medications. 8. UTI: done with antibiotics. 9. Anemia, thrombocytopenia: Probably related to acute illness, counts stable, monitor closely. 10. Diabetes mellitus type 2: A1c 7, increased sugars from steroids, BG getting better with decresing steroids, continue sliding scale insulin, cont Lantus 11. Elevated uric acid: Management as per nephrology. 12. Elevated troponin: Cardiology following, echo result as above, continue statin. aspirin, and Plavix on hold for renal biopsy 13. Hypothyroidism: Continue levothyroxine, TSH is little decreased, need to follow-up with PCP with repeat labs. 14. Elevated PTH: Management as per nephrology. 15. Hypertension: monitor with dialysis I did discuss all the above plan with the patient, she understands and agrees with the plan. Discussed with nursing staff. Tx out of ICU 74-year-old patient admitted with acute respiratory failure secondary to pulmonary fibrosis and fluid overload, she also has acute on chronic renal failure, started on dialysis, nephrology was following, her CHERRY and anti-dsDNA was positive, nephrology was considering to do renal biopsy, due to overall poor long-term prognosis they canceled the biopsy, today her oxygen requirements are better, currently she is on 2 L, we are going to transfer her to medical floor and once clinically better and outpatient dialysis set up, she probably can go home with home health.
--- NOTE | 2024-07-31 16:34 | PN ---
Date of Progress Note: 07/31/2024 Subjective: The patient was admitted with acute kidney injury secondary to pulmonary renal. The patient had advanced pulmonary fibrosis. The patient denied any chest pain. Her requirement of oxygenation compared to yesterday has slightly improved. Physical Examination: Vital Signs: When I saw the patient, blood pressure 132/67, pulse of 93. Chest: Crackles bilateral. Heart: S1, S2 systolic murmur. Abdomen: Soft, nontender. Extremities: Trace edema. Neurologic: Alert. No focality. Laboratory Data: WBC 16.4, hemoglobin 10.4. Sodium 133, potassium 4.3, bicarb 31, BUN 44, creatinine 3.8, calcium 8.1, phosphorus 5.1. Current Medications: The patient on include, 1. Plavix. 2. IV iron. 3. Atorvastatin. 4. Pantoprazole. 5. Levothyroxine. 6. Calcitriol. Assessment And Plan: 1. Acute kidney injury secondary to pulmonary renal. I had long discussion with Pulmonary yesterday. According to Dr. Angulo, the patient had advanced pulmonary fibrosis, life span for her is less than 12 months. For that reason, I had a discussion with the patient regarding her prognosis. I do not see the need with that prognosis to proceed with kidney biopsy, as the patient will not be a candidate for any immunosuppressive therapy to achieve remission on her. For that reason, we will hold on the biopsy for the time being. We will continue medical management. We will continue dialysis. The patient verbalized understanding and agreed on that plan. Will follow up. 2. Hypertension currently. No hypotension. We will continue current treatment. I am going to go ahead and decrease her midodrine dosage and will follow up. 3. Iron deficiency anemia. Continue IV iron. 4. Pulmonary fibrosis. Pulmonary renal syndrome as above. We will follow up with Pulmonary. Continue current treatment. 5. Coronary artery disease. Resume Plavix. Time spent examining the patient [id number] reviewing data lab and the radiology placing orders or discussing the case with the patient discussing the case with the tennis desk team member including hospitalist and nursing staff more than 55- minute MERCEDES/JAN Voice ID: [id number] Report ID: [id number] JESSY
[2024-07-31] MEDS: NEPRO SHAKE 237 ML CAN PO SCH (20:21)
[2024-08-01 06:02] LABS: Absolute Eosinophils 0.1 K/uL (0-0.5); Absolute Lymphocytes (CBC) 0.5 K/uL (0.7-4.9); Absolute Monocytes 0.7 K/uL (0.1-1.3); Absolute Neutrophil 13.7 K/uL (1.8-8.0); Basophils % 0.2 % (0-1.3); Eosinophils % 0.5 % (0-4.4); Hematocrit 33.1 % (36.0-45.0); Hemoglobin 10.7 g/dL (12.0-15.0); Lymphocytes % 3.6 % (15.3-44.8); MCH 27.1 pg (27.0-35.0); MCHC 32.2 g/dL (32.0-36.0); MCV 84.1 fL (80-100); MPV 9.5 fL (7.6-11.3); Monocytes % 4.4 % (3.3-12.3); Platelets 70 thou/uL (152-406); RBC Red Blood Cell Count 3.94 M/uL (3.86-4.86); Red Cell Distribution Width 15.4 % (12.1-15.2)
[2024-08-01 06:05] LABS: Neutrophils % 91.3 % (41.7-73.7)
[2024-08-01 06:21] LABS: Albumin 2.5 g/dL (3.4-5.0); Anion Gap 13.7 mEq/L (5.0-15.0); Phosphorus 5.5 mg/dL (2.5-4.9); Potassium 4.7 mEq/L (3.5-5.1)
--- NOTE | 2024-08-01 08:02 | RAD REPORT ---
EXAM: Chest Single View HISTORY: 74 years Female resp failure COMPARISON: Yesterday FINDINGS: LUNGS/PLEURA: Similar bilateral interstitial and airspace disease. CARDIAC/MEDIASTINUM: Stable enlargement. UPPER ABDOMEN: No significant abnormality. BONES: No acute abnormality. LINES/TUBES/OTHER: Dialysis catheter in similar position. IMPRESSION: No change in aeration in the lungs compared with yesterday.
--- NOTE | 2024-08-01 13:36 | P.PN ---
Subjective Date of Service: 08/01/24 Chief Complaint: Exacerbation of pulmonary fibrosis and renal failure Subjective: No new changes 74-year-old female with history of diabetes, hypertension, hypothyroidism presented with leg swelling shortness of breath concern for CHF exacerbation. afebrile seen with staff, undergoing HD Review of Systems 10-point ROS is otherwise unremarkable Physical Examination - Vital Signs Temperature: 977.6 F Blood Pressure: 94/56 Pulse: 126 Respirations: 26 Pulse Ox (%): 97 - Physical Exam General: Alert, Oriented x3 HEENT: Atraumatic, Normocephalic Respiratory: Clear to auscultation bilaterally, Normal air movement Cardiovascular: Regular rate/rhythm - Studies Medications List Reviewed: Yes Assessment And Plan - Plan Acute hypoxemic respiratory failure Idiopathic pulmonary fibrosis --O2, Prednisone Acute on chronic kidney disease --HD today Acute on chronic diastolic heart failure Lasix 80 IV twice daily Continue Coreg ARB on hold Cardiology consultation thrombocytopenia --recheck CBC --hold plavix today Coronary artery disease --Continue current treatment
[2024-08-02 06:13] LABS: Absolute Eosinophils 0.1 K/uL (0-0.5); Absolute Lymphocytes (CBC) 0.3 K/uL (0.7-4.9); Absolute Monocytes 0.4 K/uL (0.1-1.3); Absolute Neutrophil 9.9 K/uL (1.8-8.0); Basophils % 0.1 % (0-1.3); Eosinophils % 0.5 % (0-4.4); Hematocrit 32.5 % (36.0-45.0); Hemoglobin 10.6 g/dL (12.0-15.0); Lymphocytes % 3.1 % (15.3-44.8); MCH 27.4 pg (27.0-35.0); MCHC 32.7 g/dL (32.0-36.0); MCV 83.8 fL (80-100); MPV 9.2 fL (7.6-11.3); Monocytes % 3.5 % (3.3-12.3); Neutrophils % 92.8 % (41.7-73.7); Nucleated Red Blood Cells % 0.4 % (0-0); Platelets 70 thou/uL (152-406); RBC Red Blood Cell Count 3.87 M/uL (3.86-4.86); Red Cell Distribution Width 15.5 % (12.1-15.2)
[2024-08-02 06:28] LABS: Anion Gap 10.3 mEq/L (5.0-15.0); Potassium 4.3 mEq/L (3.5-5.1)
--- NOTE | 2024-08-02 10:59 | P.PN ---
Subjective Date of Service: 08/02/24 Chief Complaint: Exacerbation of pulmonary fibrosis and renal failure 74-year-old female with history of diabetes, hypertension, hypothyroidism presented with leg swelling shortness of breath concern for CHF exacerbation. afebrile, feels better seen with staff Physical Examination - Vital Signs Temperature: 97.9 F Blood Pressure: 141/73 Pulse: 94 Respirations: 36 Pulse Ox (%): 100 - Studies Medications List Reviewed: Yes Assessment And Plan - Plan Acute hypoxemic respiratory failure Idiopathic pulmonary fibrosis --O2, Prednisone Acute on chronic kidney disease --HD MWF, renal consult Acute on chronic diastolic heart failure Lasix 80 IV twice daily Continue Coreg ARB on hold --check CXR Cardiology consultation thrombocytopenia --recheck CBC --hold plavix Coronary artery disease --Continue current treatment PT consult possible DC soon,
--- NOTE | 2024-08-02 14:47 | RAD REPORT ---
EXAMINATION: ONE VIEW CHEST XR CLINICAL INDICATION: Female, 74 years old.,followup cough TECHNIQUE: Frontal chest projection is submitted. Examination is limited by patient positioning and t echnique. COMPARISON: 08/01/2024 FINDINGS: The lungs show progressive predominantly central airspace opacities, with worsening on the right. Lef t basal/retrocardiac patchy opacification, stable. Decreased inspiratory effort limits evaluation. The right IJ dialysis catheter unchanged in position. No pneumothorax or sizable effusion. The heart is normal in size. Mediastinal contours are unremarkable. IMPRESSION: Worsening bilateral airspace opacities particularly on the right, concerning for multifocal pneumonia or pulmonary edema.
[2024-08-02] MEDS ORDERED: GUAIFENESIN 600 MG SA TAB PO SCH (21:00)
[2024-08-02] MEDS ORDERED: CEFDINIR 300 MG CAP PO SCH (21:00)
[2024-08-03] MEDS ORDERED: GLUCAGON 1 MG/VIAL IM PRN (07:19)
[2024-08-04 13:35] LABS: Absolute Lymphocytes (CBC) 0.3 K/uL (0.7-4.9); Absolute Monocytes 0.2 K/uL (0.1-1.3); Absolute Neutrophil 9.5 K/uL (1.8-8.0); Basophils % 0.2 % (0-1.3); Eosinophils % 0.4 % (0-4.4); Hematocrit 28.6 % (36.0-45.0); Hemoglobin 9.3 g/dL (12.0-15.0); Lymphocytes % 2.7 % (15.3-44.8); MCH 27.5 pg (27.0-35.0); MCHC 32.6 g/dL (32.0-36.0); MCV 84.4 fL (80-100); MPV 9.7 fL (7.6-11.3); Monocytes % 2.4 % (3.3-12.3); Neutrophils % 94.3 % (41.7-73.7); Platelets 54 thou/uL (152-406); RBC Red Blood Cell Count 3.39 M/uL (3.86-4.86)
[2024-08-04 13:39] LABS: Blood Morphology Comment NOT SEEN (NOT SEEN); PT Prothrombin Time 10.4 SECONDS (10-13.0); Platelet Estimate DECR; Protime INR 0.91; White Blood Cell Scan OK (OK)
[2024-08-04 13:45] LABS: Anion Gap 12.8 mEq/L (5.0-15.0); Potassium 4.8 mEq/L (3.5-5.1)
[2024-08-04] MEDS ORDERED: NEPRO SHAKE 237 ML CAN PO PRN (14:32)
--- NOTE | 2024-08-04 15:12 | RAD REPORT ---
Procedure: Chest Single View HISTORY: Cough COMPARISON: August 02, 2024 FINDINGS: Extensive bilateral pulmonary opacities without significant change. Heart remains enlarged. No significant pleural effusion noted. Central venous catheter has one limb at the SVC right atrium juncture. The second limb is able centim eters into the right atrium. No pneumothorax. IMPRESSION: Bilateral pulmonary opacities probably pulmonary edema. No significant change
[2024-08-04] MEDS: SOD FERRIC GLUC COMPLX/SUCROSE 125 MG in NA CHLORIDE 0.9% 100 ML IV SCH (17:45)
--- NOTE | 2024-08-04 21:31 | RAD REPORT ---
EXAMINATION: Stone Protocol CLINICAL INDICATION: Renal mass. TECHNIQUE: CT abdomen and pelvis was performed, without IV contrast, as per department protocol. Oral contrast not given. Axial, sagittal and coronal reconstructions were obtained. One or more of the following dose reduction techniques were used: Automated exposure control, adjustment of the mA and k V according to the patient size, and iterative reconstruction. Unless otherwise specified, incidental findings do not require dedicated imaging follow-up. COMPARISON: 2021 FINDINGS: The lack of intravenous and oral contrast limits the sensitivity of this exam for evaluation of solid visceral organs, vascular structures, and bowel Known bilateral pulmonary opacities. A renal calculus not seen. No ureteral calculus. A bladder calculus not noted. No hydronephrosis. 2.5 cm cyst extends off of the lower pole left kidney. Hounsfield unit on the enhanced scan 3. Hounsf ield unit on today's unenhanced CT is 5. It is equivocally minimally enlarged. It is benign. No follow-up imaging recommended. Liver, spleen, pancreas and adrenals grossly normal No evidence of diverticulitis. No adnexal mass.. Atherosclerosis IMPRESSION: 2.5 cm simple cyst left kidney.
--- NOTE | 2024-08-05 03:07 | PN ---
Date of Progress Note: 08/04/2024 Chief Complaint: Acute kidney injury. Subjective: Renal function has not improved. The patient is on hemodialysis. The patient has advan brandin pulmonary fibrosis. She came to the hospital because of shortness of breath. Today, she denies PND and orthopnea. Physical Examination: LUNGS: Few rhonchi. Crackles bilaterally at bases. HEART: S1, S2. ABDOMEN: Soft, benign. EXTREMITIES: Trace edema. Impression And Plan: 1. Acute kidney injury secondary to pulmonary renal syndrome. The patient will continue hemodialysis . The patient has advanced pulmonary fibrosis. Prognosis guarded. Pulmonary Service is following t he patient. 2. Hypertension. Continue blood pressure medication. 3. Pulmonary fibrosis, per Primary team and Pulmonary. 4. Anemia in chronic kidney disease. Hemoglobin level is 7.4. Continue to monitor. 5. Acute kidney injury, multifactorial. Monitor electrolytes and renal panel. EB/MODL Voice ID: [id number] Report ID: [id number]
--- NOTE | 2024-08-05 07:53 | P.PN ---
Date of Service: 08/03/24 Subjective Chart has been reviewed; events of the last 24 hours have been noted. Patient has come a long way from when she was in the ICU on BiPAP support as well as high flow support. Patient's oxygen requirements have improved as well. Patient is currently on 3 L of oxygen. Patient started to work with physical therapy. She is sitting at the edge of the bed. Her strength is gradually improving. She does not want to go to a retirement but she is open to going to inpatient rehab. Patient was in the intensive care unit for a very prolonged period and she has significant critical care myopathy from being in the intensive care unit and battling her respiratory condition for a prolonged period. Will try to get her to inpatient rehab and hopefully her insurance company will comply. Physical Examination - Vital Signs Reviewed - Physical Exam General: Alert, In no apparent distress, Oriented x3, Resting comfortably Respiratory: Basilar crackles but otherwise clear Cardiovascular: Regular rate/rhythm, Normal S1 S2, Systolic murmur Gastrointestinal: Normal bowel sounds, Soft and benign, Non-distended, No tende rness Musculoskeletal: No clubbing, No tenderness, Swelling Neurological: patient with generalized weakness Medications List Reviewed: Yes Assessment & Plan - Problems (Diagnosis) (1) Acute hypoxic respiratory failure Current Visit: Yes Status: Acute (2) Heart failure with preserved ejection fraction Current Visit: Yes Status: Acute (3) Acute kidney injury superimposed on chronic kidney disease Current Visit: Yes Status: Acute (4) Idiopathic pulmonary fibrosis Current Visit: Yes Status: Acute (5) ESRD (end stage renal disease) Current Visit: Yes Status: Acute (6) Morbid obesity Current Visit: Yes Status: Acute (7) Obstructive sleep apnea Current Visit: Yes Status: Acute (8) Debility Current Visit: Yes Status: Acute (9) Pulmonary hypertension Current Visit: Yes Status: Acute (10) CAD (coronary artery disease) Current Visit: Yes Status: Acute (11) Diabetes Current Visit: No Status: Acute Diabetes mellitus type: other specified (including ANGEL) - Plan Continue with plan of care as mentioned below: 1. Acute hypoxic respiratory failure secondary to idiopathic pulmonary fibrosis and fluid overload related to acute renal failure; continue with IV steroids and neb treatments and continue with hemodialysis per Nephrology. Plan for hemodialysis in the morning per Nephrology recommendations. Patient's respiratory status has improved significantly and currently she is on 2 to 3 L of oxygen. We started physical therapy to build patient's strength and hope fully we can continue to improve patient's oxygenation. 2. Acute on chronic kidney disease; continue with monitor renal function closely. Patient on hemodialysis at this time as patient has progressed to ESRD rapidly. Hopefully this will be reversible but will at this time patient needs hemodialysis. Patient will probably need renal biopsy. Hemodialysis per nephrology 3. History of heart failure with preserved ejection fraction with moderate pulmonary hypertension; continue with diuresing . Continue monitoring volume status and diurese as necessary with hemodialysis as ordered. 4. Morbid obesity with metabolic syndrome; continue with strict blood pressure and blood sugar control 5. Obesity hypoventilation syndrome; continue with BiPAP support at night and continue with monitoring ABG 6. Idiopathic pulmonary fibrosis; continue with nebs and steroids; continue with outpatient pulmonary follow-up 7. Gi and DVT prophylax Discharge Plan: shelter home Plan to discharge in: Greater than 2 days - Advance Directives Does patient have a Living Will: No Does patient have a Durable POA for Healthcare: No - Code Status/Comfort Care Code Status Assessed: Yes Code Status: Full Code Critical Care: No Time Spent Managing PTS Care (In Minutes): 30
--- NOTE | 2024-08-05 07:55 | P.PN ---
Date of Service: 08/04/24 Subjective Patient continue to participate with physical therapy. Patient was able to catch her breath and we increased her oxygen requirements while she was participating with physical therapy. Will try to get patient inpatient rehab to build her strength prior to going home. 08/04 Chart has been reviewed; events of the last 24 hours have been noted. Patient has come a long way from when she was in the ICU on BiPAP support as well as high flow support. Patient's oxygen requirements have improved as well. Patient is currently on 3 L of oxygen. Patient started to work with physical therapy. She is sitting at the edge of the bed. Her strength is gradually improving. She does not want to go to a long term but she is open to going to inpatient rehab. Patient was in the intensive care unit for a very prolonged period and she has significant critical care myopathy from being in the intensiv e care unit and battling her respiratory condition for a prolonged period. Will try to get her to inpatient rehab and hopefully her insurance company will comply. Physical Examination - Vital Signs Reviewed - Physical Exam General: Alert, In no apparent distress, Oriented x3, Resting comfortably Respiratory: Basilar crackles but otherwise clear Cardiovascular: Regular rate/rhythm, Normal S1 S2, Systolic murmur Gastrointestinal: Normal bowel sounds, Soft and benign, Non-distended, No tenderness Musculoskeletal: No clubbing, No tenderness, Swelling Neurological: patient with generalized weakness Medications List Reviewed: Yes Assessment & Plan - Problems (Diagnosis) (1) Acute hypoxic respiratory failure Current Visit: Yes Status: Acute (2) Heart failure with preserved ejection fraction Current Visit: Yes Status: Acute (3) Acute kidney injury superimposed on chronic kidney disease Current Visit: Yes Status: Acute (4) Idiopathic pulmonary fibrosis Current Visit: Yes Status: Acute (5) ESRD (end stage renal disease) Current Visit: Yes Status: Acute (6) Morbid obesity Current Visit: Yes Status: Acute (7) Obstructive sleep apnea Current Visit: Yes Status: Acute (8) Debility Current Visit: Yes Status: Acute (9) Pulmonary hypertension Current Visit: Yes Status: Acute (10) CAD (coronary artery disease) Current Visit: Yes Status: Acute (11) Diabetes Current Visit: No Status: Acute Diabetes mellitus type: other specified (including ANGEL) - Plan Continue with plan of care as mentioned below: 1. Acute hypoxic respiratory failure secondary to idiopathic pulmonary fibrosis and fluid overload related to acute renal failure; continue with IV steroids and neb treatments and continue with hemodialysis per Nephrology. Plan for hemodialysis in the morning per Nephrology recommendations. Patient's respiratory status has improved significantly and currently she is on 2 to 3 L of oxygen. We started physical therapy to build patient's strength and hopefully we can continue to improve patient's oxygenation. 2. Acute on chronic kidney disease; continue with monitor renal function closely. Patient on hemodialysis at this time as patient has progressed to ESRD rapidly. Hopefully this will be reversible but will at this time patient needs hemodialysis. Patient will probably need renal biopsy. Hemodialysis per nephrology 3. History of heart failure with preserved ejection fraction with moderate pulmonary hypertension; continue with diuresing . Continue monitoring volume status and diurese as necessary with hemodialysis as ordered. 4. Morbid obesity with metabolic syndrome; continue with strict blood pressure and blood sugar control 5. Obesity hypoventilation syndrome; continue with BiPAP support at night and continue with monitoring ABG 6. Idiopathic pulmonary fibrosis; continue with nebs and steroids; continue with outpatient pulmonary follow-up 7. Gi and DVT prophylax Discharge Plan: [facility] Plan to discharge in: Greater than 2 days - Advance Directives Does patient have a Living Will: No Does patient have a Durable POA for Healthcare: No - Code Status/Comfort Care Code Status Assessed: Yes Code Status: Full Code Critical Care: No Time Spent Managing PTS Care (In Minutes): 30
--- NOTE | 2024-08-05 11:26 | PN ---
Date of Progress Note: 08/05/2024 Subjective: The patient was admitted with acute kidney injury secondary to pulmonary renal. The patient could not get kidney biopsy because of the patient's respiratory status and after discussing with Dr. Angulo of Pulmonary, the patient's prognosis from the pulmonary side is poor as she has advanced pulmonary fibrosis. The patient was initiated on dialysis. The patient waiting for rehab placement. Physical Examination: Vital Signs: Blood pressure 148/68, pulse of 89, afebrile. Chest: Crackles, bilateral. Heart: S1, S2. Systolic murmur. Abdomen: Soft, nontender. Extremities: Trace edema. Neurologic: Alert. No focality. Laboratory Data: WBC 10.1, hemoglobin 9.3. Sodium 131, potassium 4.8, bicarb 26, BUN 72, creatinine 7.6, calcium 7.8. Current Medications: The patient is on include: 1. Plavix. 2. IV iron. 3. Atorvastatin. 4. Nepro. 5. Levothyroxine. 6. Prednisone. 7. Calcitriol. Assessment And Plan: 1. 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 We will monitor the patient. 2. Hypertension, controlled, optimal. Continue current treatment. 3. Anemia of chronic kidney disease. Continue ETHAN. 4. Secondary hyperparathyroidism, continue calcitriol. 5. Nephrotic range proteinuria, could not tolerate MEGHANN inhibitor given the low blood pressure. We will follow up. 6. Pulmonary fibrosis as by Pulmonary. We will follow up. Time spent examining the patient [id number] reviewing data lab and the radiology placing orders or discussing the case with the steam room attendant including hospitalist and nursing staff more than 55-minute KOLE Voice ID: [id number] Report ID: [id number] JESSY
--- NOTE | 2024-08-05 13:50 | P.PN ---
Date of Service: 08/05/24 Subjective: Resting in bed. No acute complaints. Denies chest pain and shortness of breath. On 3 L nasal cannula Review of systems: 10 point review of systems otherwise negative except as per HPI Physical Examination - Vital Signs Reviewed - Physical Exam General: Alert, In no apparent distress, Oriented x3, Resting comfortably Respiratory: Basilar crackles but otherwise clear Cardiovascular: Regular rate/rhythm, Normal S1 S2, Systolic murmur Gastrointestinal: Normal bowel sounds, Soft and benign, Non-distended, No tenderness Musculoskeletal: No clubbing, No tenderness, Swelling Neurological: patient with generalized weakness Medications List Reviewed: Yes Assessment & Plan - Problems (Diagnosis) (1) Acute hypoxic respiratory failure Current Visit: Yes Status: Acute (2) Heart failure with preserved ejection fraction Current Visit: Yes Status: Acute (3) Acute kidney injury superimposed on chronic kidney disease Current Visit: Yes Status: Acute (4) Idiopathic pulmonary fibrosis Current Visit: Yes Status: Acute (5) ESRD (end stage renal disease) Current Visit: Yes Status: Acute (6) Morbid obesity Current Visit: Yes Status: Acute (7) Obstructive sleep apnea Current Visit: Yes Status: Acute (8) Debility Current Visit: Yes Status: Acute (9) Pulmonary hypertension Current Visit: Yes Status: Acute (10) CAD (coronary artery disease) Current Visit: Yes Status: Acute (11) Diabetes Current Visit: No Status: Acute Diabetes mellitus type: other specified (including ANGEL) - Plan Continue with plan of care as mentioned below: 1. Acute hypoxic respiratory failure secondary to idiopathic pulmonary fibrosis and fluid overload related to acute renal failure; continue with IV steroids and neb treatments and continue with hemodialysis per Nephrology. Plan for hemodialysis in the morning per Nephrology recommendations. Patient's respiratory status has improved significantly and currently she is on 2 to 3 L of oxygen. We started physical therapy to build patient's strength and hopefully we can continue to improve patient's oxygenation. 2. Acute on chronic kidney disease; continue with monitor renal function closely. Patient on hemodialysis at this time as patient has progressed to ESRD rapidly. Hopefully this will be reversible but will at this time patient needs hemodialysis. Patient will probably need renal biopsy. Hemodialysis per nephrology 3. History of heart failure with preserved ejection fraction with moderate pulmonary hypertension; continue with diuresing . Continue monitoring volume status and diurese as necessary with hemodialysis as ordered. 4. Morbid obesity with metabolic syndrome; continue with strict blood pressure and blood sugar control 5. Obesity hypoventilation syndrome; CPAP nightly and BiPAP as needed 6. Idiopathic pulmonary fibrosis; continue with nebs and steroids; continue with outpatient pulmonary follow-up 7. Gi and DVT prophylax Discharge Plan: IPR Plan to discharge in: Greater than 2 days - Advance Directives Does patient have a Living Will: No Does patient have a Durable POA for Healthcare: No - Code Status/Comfort Care Code Status Assessed: Yes Code Status: Full Code Critical Care: No Time Spent Managing PTS Care (In Minutes): 30
[2024-08-05] MEDS: guaiFENesin 100 MG/5 ML UCUP PO PRN (23:32)
--- NOTE | 2024-08-06 12:03 | PN ---
Date of Progress Note: 08/06/2024 Subjective: The patient was admitted to the hospital with pulmonary renal syndrome. The patient has advanced lung fibrosis. The patient was initiated on dialysis, tolerating the dialysis. We did not proceed for kidney biopsy as the patient is very weak and high oxygen dependent and according to the Pulmonary, the life span with this advanced fibrosis is around 1 year. Physical Examination: Vital Signs: Blood pressure 127/61, pulse of 100. Chest: Crackles bilateral. Heart: S1, S2. Regular. Abdomen: Soft, nontender. Extremities: No edema. Neurologic: Alert. No focality. Laboratory Data: Hemoglobin 9.3. Sodium 131, potassium 4.8, bicarb 26, BUN 72, creatinine 7.6, calcium 7.8. Assessment And Plan: 1. Acute kidney injury, pulmonary renal, dialysis dependent, end-stage renal disease. Currently, I am going to continue the patient on dialysis. We will follow up the patient. The patient is due for dialysis today. 2. Hypertension, could not tolerate MEGHANN inhibitor because of the low blood pressure. We will follow up. 3. Nephrotic range proteinuria secondary to pulmonary renal. Continue current treatment. Could not tolerate MEGHANN inhibitor. 4. Iron-deficiency anemia. Continue IV iron. 5. Hyponatremia secondary to renal failure. Will be corrected with dialysis. 6. Pulmonary fibrosis, as by Pulmonary. The patient cleared from the Renal standpoint for discharge planning. Time spent examining the patient [id number] reviewing data lab and the radiology placing orders or discussing the case with the patient discussing the case with the food court team member including hospitalist and nursing staff more than 55- minute KOLE Voice ID: [id number] Report ID: [id number] JESSY
--- NOTE | 2024-08-06 13:10 | P.PN ---
Date of Service: 08/06/24 Subjective: Resting in bed. Cough is improving with Mucinex. She is not able to exert herself much. She states her performs most of the daily tasks for her. Denies chest pain and shortness of breath. On 3 L nasal cannula Review of systems: 10 point review of systems otherwise negative except as per HPI Physical Examination - Vital Signs Reviewed - Physical Exam General: Alert, In no apparent distress, Oriented x3, Resting comfortably Respiratory: Basilar crackles but otherwise clear Cardiovascular: Regular rate/rhythm, Normal S1 S2, Systolic murmur Gastrointestinal: Normal bowel sounds, Soft and benign, Non-distended, No tenderness Musculoskeletal: No clubbing, No tenderness, Swelling Neurological: patient with generalized weakness Medications List Reviewed: Yes Assessment & Plan - Problems (Diagnosis) (1) Acute hypoxic respiratory failure Current Visit: Yes Status: Acute (2) Heart failure with preserved ejection fraction Current Visit: Yes Status: Acute (3) Acute kidney injury superimposed on chronic kidney disease Current Visit: Yes Status: Acute (4) Idiopathic pulmonary fibrosis Current Visit: Yes Status: Acute (5) ESRD (end stage renal disease) Current Visit: Yes Status: Acute (6) Morbid obesity Current Visit: Yes Status: Acute (7) Obstructive sleep apnea Current Visit: Yes Status: Acute (8) Debility Current Visit: Yes Status: Acute (9) Pulmonary hypertension Current Visit: Yes Status: Acute (10) CAD (coronary artery disease) Current Visit: Yes Status: Acute (11) Diabetes Current Visit: No Status: Acute Diabetes mellitus type: other specified (including ANGEL) - Plan Continue with plan of care as mentioned below: 1. Acute hypoxic respiratory failure secondary to idiopathic pulmonary fibrosis and fluid overload related to acute renal failure; continue with IV steroids and neb treatments and continue with hemodialysis per Nephrology. Plan for hemodialysis per Nephrology recommendations. Patient's respiratory status has improved significantly and currently she is on 2 to 3 L of oxygen. We started physical therapy to build patient's strength and hopefully we can continue to improve patient's oxygenation. 2. ESRD / acute on chronic kidney disease; continue with monitor renal function closely. Patient on hemodialysis at this time as patient has progressed to ESRD rapidly. Hopefully this will be reversible but will at this time patient needs hemodialysis. Patient will probably need renal biopsy. Hemodialysis per nephrology 3. History of heart failure with preserved ejection fraction with moderate pulmonary hypertension; continue with diuresing. Continue monitoring volume status and diurese as necessary with hemodialysis as ordered. 4. Morbid obesity with metabolic syndrome; continue with strict blood pressure and blood sugar control 5. Obesity hypoventilation syndrome; CPAP nightly and BiPAP as needed 6. Idiopathic pulmonary fibrosis; continue with nebs and steroids; continue with outpatient pulmonary follow-up 7. Gi and DVT prophylax 8. Continue Mucinex for cough Discharge Plan: IPR Plan to discharge in: Greater than 2 days - Advance Directives Does patient have a Living Will: No Does patient have a Durable POA for Healthcare: No - Code Status/Comfort Care Code Status Assessed: Yes Code Status: Full Code Critical Care: No Time Spent Managing PTS Care (In Minutes): 30
--- NOTE | 2024-08-07 10:19 | RAD REPORT ---
EXAMINATION: ONE VIEW CHEST XR CLINICAL INDICATION: COPD TECHNIQUE: Frontal chest projection is submitted. Examination is limited by patient positioning and t echnique. COMPARISON: 08/04/2024 FINDINGS: Extensive bilateral pulmonary opacities are present, slightly improved since comparison study. The he art is moderately enlarged. Right-sided venous catheters tip in the right atrium. IMPRESSION: Mild improvement lung aeration seen since comparison study. Significant bilateral pulmonary opacities persists, however.
--- NOTE | 2024-08-07 11:45 | PN ---
Subjective: The patient was admitted to the hospital with pulmonary renal syndrome. The patient has advanced lung fibrosis. The patient was initiated ondialysis, tolerating the dialysis. We did not proceed for kidney biopsy as the patient is very weak and high oxygen dependent and according to the Pulmonary, the life span with this advanced fibrosis is around 1 year. Physical Examination: Vital Signs: Blood pressure 127/61, pulse of 100. Chest: Crackles bilateral. Heart: S1, S2. Regular. Abdomen: Soft, nontender. Extremities: No edema. Neurologic: Alert. No focality. Laboratory Data: Hemoglobin 9.3. Sodium 131, potassium 4.8, bicarb 26, BUN 72,creatinine 7.6, calcium 7.8. Assessment And Plan: 1. Acute kidney injury, pulmonary renal, dialysis dependent, end-stage renal disease. Currently, I am going to continue the patient on dialysis. We will follow up the patient. The patient is due for dialysis today. 2. Hypertension, could not tolerate MEGHANN inhibitor because of the low blood pressure. We will follow up. 3. Nephrotic range proteinuria secondary to pulmonary renal. Continue current treatment. Could not tolerate MEGHANN inhibitor. 4. Iron-deficiency anemia. Continue IV iron. 5. Hyponatremia secondary to renal failure. Will be corrected with dialysis. 6. Pulmonary fibrosis, as by Pulmonary. The patient cleared from the Renal standpoint for discharge planning. Time spent examining the patient [id number] reviewing data lab and the radiology placing orders or discussing the case with the patient discussing the case with the trampoline team coach including hospitalist and nursing staff more than 55-minut KOLE Voice ID: [id number] Report ID: [id number] [facility] CENTERJosemanuel
--- NOTE | 2024-08-07 14:14 | P.PN ---
Date of Service: 07/08/24 Subjective: She is more short of breath today. States that she has been coughing. Denies fevers and chills. Discussed with nephrology Review of systems: 10 point review of systems otherwise negative except as per HPI Physical Examination - Vital Signs Reviewed - Physical Exam General: Alert, In no apparent distress, Oriented x3, Resting comfortably Respiratory: Basilar crackles but otherwise clear Cardiovascular: Regular rate/rhythm, Normal S1 S2, Systolic murmur Gastrointestinal: Normal bowel sounds, Soft and benign, Non-distended, No tenderness Musculoskeletal: No clubbing, No tenderness, Swelling Neurological: patient with generalized weakness Medications List Reviewed: Yes Assessment & Plan - Problems (Diagnosis) (1) Acute hypoxic respiratory failure Current Visit: Yes Status: Acute (2) Heart failure with preserved ejection fraction Current Visit: Yes Status: Acute (3) Acute kidney injury superimposed on chronic kidney disease Current Visit: Yes Status: Acute (4) Idiopathic pulmonary fibrosis Current Visit: Yes Status: Acute (5) ESRD (end stage renal disease) Current Visit: Yes Status: Acute (6) Morbid obesity Current Visit: Yes Status: Acute (7) Obstructive sleep apnea Current Visit: Yes Status: Acute (8) Debility Current Visit: Yes Status: Acute (9) Pulmonary hypertension Current Visit: Yes Status: Acute (10) CAD (coronary artery disease) Current Visit: Yes Status: Acute (11) Diabetes Current Visit: No Status: Acute Diabetes mellitus type: other specified (including ANGEL) - Plan Continue with plan of care as mentioned below: 1. Acute hypoxic respiratory failure secondary to idiopathic pulmonary fibrosis and fluid overload related to acute renal failure; continue with IV steroids and neb treatments and continue with hemodialysis per Nephrology. She is more tachycardic and tachypneic today. Will curbside cardiology and pulmonology for additional recommendation. Patient's respiratory status has improved significantly and currently she is on 2 to 3 L of oxygen. Patient's respiratory status continues to wax and wane. 2. ESRD / acute on chronic kidney disease; continue with monitor renal function closely. Patient on hemodialysis at this time as patient has progressed to ESRD rapidly. Hopefully this will be reversible but will at this time patient needs hemodialysis. Patient will probably need renal biopsy. Hemodialysis per nephrology 3. History of heart failure with preserved ejection fraction with moderate pulmonary hypertension; continue with diuresing. Continue monitoring volume status and diurese as necessary with hemodialysis as ordered. 4. Morbid obesity with metabolic syndrome; continue with strict blood pressure and blood sugar control 5. Obesity hypoventilation syndrome; CPAP nightly and BiPAP as needed 6. Idiopathic pulmonary fibrosis; continue with nebs and steroids; continue with outpatient pulmonary follow-up 7. Continue Mucinex for cough 8. Gi and DVT prophylax Discharge Plan: Inpatient rehab Plan to discharge in: 2 days - Advance Directives Does patient have a Living Will: No Does patient have a Durable POA for Healthcare: No - Code Status/Comfort Care Code Status Assessed: Yes Code Status: Full Code Critical Care: No Time Spent Managing PTS Care (In Minutes): 30
[2024-08-08 05:54] LABS: Albumin 2.4 g/dL (3.4-5.0); Anion Gap 12.7 mEq/L (5.0-15.0); Phosphorus 4.6 mg/dL (2.5-4.9); Potassium 4.7 mEq/L (3.5-5.1)
[2024-08-08 07:27] LABS: Absolute Basophils 0.1 K/uL (0-0.5); Absolute Eosinophils 0.5 K/uL (0-0.5); Absolute Lymphocytes (CBC) 0.6 K/uL (0.7-4.9); Absolute Monocytes 0.3 K/uL (0.1-1.3); Absolute Neutrophil 7.1 K/uL (1.8-8.0); Basophils % 1.1 % (0-1.3); Eosinophils % 5.6 % (0-4.4); Hematocrit 30.3 % (36.0-45.0); Hemoglobin 9.9 g/dL (12.0-15.0); Lymphocytes % 6.6 % (15.3-44.8); MCH 27.7 pg (27.0-35.0); MCHC 32.6 g/dL (32.0-36.0); MCV 85.1 fL (80-100); MPV 9.5 fL (7.6-11.3); Monocytes % 3.6 % (3.3-12.3); Neutrophils % 83.1 % (41.7-73.7); Nucleated Red Blood Cells % 0.1 % (0-0); Platelets 58 thou/uL (152-406); RBC Red Blood Cell Count 3.56 M/uL (3.86-4.86); Red Cell Distribution Width 16.3 % (12.1-15.2)
[2024-08-08 09:53] LABS: White Blood Cell Scan OK (OK)
[2024-08-08 09:54] LABS: Platelet Estimate DECR
[2024-08-08 09:55] LABS: Blood Morphology Comment NOT SEEN (NOT SEEN)
--- NOTE | 2024-08-08 16:41 | P.PN ---
Date of Service: 08/08/24 Subjective: Patient coughing after dialysis. Appears short of breath. Discussed with daughter at bedside. We discussed the worsening pulmonary fibrosis. Daughter has concerns about how much fluid was taken off during dialysis. We discussed the rapid progression of her pulmonary fibrosis. We discussed pal liative care and hospice options. Review of systems: 10 point review of systems otherwise negative except as per HPI Physical Examination - Vital Signs Reviewed - Physical Exam General: Alert, In no apparent distress, Oriented x3, Resting comfortably Respiratory: Basilar crackles with wheeze Cardiovascular: Regular rate/rhythm, Normal S1 S2, Systolic murmur Gastrointestinal: Normal bowel sounds, Soft and benign, Non-distended, No tenderness Musculoskeletal: No clubbing, No tenderness, Swelling Neurological: patient with generalized weakness Medications List Reviewed: Yes Assessment & Plan - Problems (Diagnosis) (1) Acute hypoxic respiratory failure Current Visit: Yes Status: Acute (2) Heart failure with preserved ejection fraction Current Visit: Yes Status: Acute (3) Acute kidney injury superimposed on chronic kidney disease Current Visit: Yes Status: Acute (4) Idiopathic pulmonary fibrosis Current Visit: Yes Status: Acute (5) ESRD (end stage renal disease) Current Visit: Yes Status: Acute (6) Morbid obesity Current Visit: Yes Status: Acute (7) Obstructive sleep apnea Current Visit: Yes Status: Acute (8) Debility Current Visit: Yes Status: Acute (9) Pulmonary hypertension Current Visit: Yes Status: Acute (10) CAD (coronary artery disease) Current Visit: Yes Status: Acute (11) Diabetes Current Visit: No Status: Acute Diabetes mellitus type: other specified (including ANGEL) - Plan Continue with plan of care as mentioned below: 1. Acute hypoxic respiratory failure secondary to idiopathic pulmonary fibrosis and fluid overload related to acute renal failure; continue with IV steroids and neb treatments and continue with hemodialysis per Nephrology. She is more tachycardic and tachypneic today. Will curbside cardiology and pulmonology for additional recommendation. Patient's respiratory status remains tenuous and she is not able to exert herself without severe coughing fits. 2. ESRD / acute on chronic kidney disease; continue with monitor renal function closely. Patient on hemodialysis at this time as patient has progressed to ESRD rapidly. Hopefully this will be reversible but will at this time patient needs hemodialysis. Patient will probably need renal biopsy. Hemodialysis per nephrology 3. History of heart failure with preserved ejection fraction with moderate pulmonary hypertension; continue with diuresing. Continue monitoring volume status and diurese as necessary with hemodialysis as ordered. 4. Morbid obesity with metabolic syndrome; continue with strict blood pressure and blood sugar control 5. Obesity hypoventilation syndrome; CPAP nightly and BiPAP as needed 6. Idiopathic pulmonary fibrosis; continue with nebs and steroids; continue with outpatient pulmonary follow-up 7. Continue Mucinex for cough 8. Gi and DVT prophylax Discharge Plan: Will discuss with daughter for longterm, home health, home with hospice Plan to discharge in: - Advance Directives Does patient have a Living Will: No Does patient have a Durable POA for Healthcare: No - Code Status/Comfort Care Code Status Assessed: Yes Code Status: Full Code Critical Care: No Time Spent Managing PTS Care (In Minutes): 45
--- NOTE | 2024-08-09 | PN ---
Date of Progress Note: 08/08/2024 Subjective: The patient is admitted to the hospital with pulmonary renal syndrome. She has acute ki dney injury. Renal function has not improved. The patient is followed by hospital insurance clerk for advanced lung fibrosis. She has congestive heart failure, fluid overload. She is undergoing dialysis for ac valencia kidney injury. Volemia has improved. Review of Systems: Denies chest pain, palpitation. Physical Examination: Chest: Crackles bilaterally. Heart: S1, S2. Abdomen: Soft, benign. Extremities: No edema. Impression And Plan: 1. Acute kidney injury, pulmonary renal syndrome. The patient remains dialysis dependent. The patie nt developed end-stage renal disease in setting of accelerated acute kidney injury. The patient will continue dialysis with ultrafiltration for volume control. Continue p.o. fluid restriction, low-sod ium diet. 2. The patient remains hypotensive and currently cannot tolerate MEGHANN inhibitor. 3. The patient has nephrotic range proteinuria and she cannot start MEGHANN inhibitor due to persistent h ypotension. Recommend Cardiology evaluation. 4. Hyponatremia secondary to renal failure. Correction with dialysis. Continue p.o. fluid restricti on. EB/MODL Voice ID: [id number] Report ID: [id number]
[2024-08-09 05:32] LABS: Albumin 2.2 g/dL (3.4-5.0); Anion Gap 9.1 mEq/L (5.0-15.0); Phosphorus 4.2 mg/dL (2.5-4.9); Potassium 4.1 mEq/L (3.5-5.1)
--- NOTE | 2024-08-09 09:49 | PN ---
Date of Progress Note: 08/09/2024 Subjective: The patient was admitted to the hospital with pulmonary renal syndrome. The patient was started on dialysis for metabolic clearance and fluid management. The patient could not undergo kidney biopsy because of her prognosis and because of the respiratory status, the patient tolerating dialysis. Physical Examination: Vital Signs: Blood pressure 102/43, pulse of 97, afebrile. Chest: Crackles, bilateral base. Heart: S1, S2. Systolic murmur. Abdomen: Soft, nontender. Extremities: Trace edema. Neurologic: Alert. No focality. Laboratory Data: Hemoglobin 9.9. Sodium 134, potassium 4.1, bicarb 30, BUN 25, creatinine 4.1, calcium 8.4, phosphorus 4.2. Current Medications: The patient is on include: 1. Plavix. 2. IV iron. 3. Heparin. 4. Atorvastatin. 5. Zofran. 6. Calcitriol. Assessment And Plan: 1. End-stage renal disease secondary to pulmonary renal, dialysis dependent. We will continue dialysis TTS on the patient and we will follow up. The patient tolerated the dialysis yesterday without any complication. Next dialysis will be Sunday. 2. Hypertension, controlled, optimal. 3. Tachycardia, resolved. 4. Pulmonary fibrosis. Poor prognosis overall as by Pulmonary. We will follow up. 5. Anemia of chronic kidney disease with iron deficiency anemia. Continue IV iron. I am going to resume ETHAN and we will follow up the patient. Time spent examining the patient [id number] reviewing data lab and the radiology placing orders or discussing the case with the patient discussing the case with the grocery team member including hospitalist and nursing staff more than 55- minute KOLE Voice ID: [id number] Report ID: [id number] JESSY
--- NOTE | 2024-08-09 15:06 | P.PN ---
Date of Service: 08/09/24 Subjective: Patient coughing after dialysis. Appears short of breath. Discussed with daughter at bedside. We discussed the worsening pulmonary fibrosis. Daughter has concerns about how much fluid was taken off during dialysis. We discussed the rapid progression of her pulmonary fibrosis. We discussed pal liative care and hospice options. Review of systems: 10 point review of systems otherwise negative except as per HPI Physical Examination - Vital Signs Reviewed - Physical Exam General: Alert, In no apparent distress, Oriented x3, Resting comfortably Respiratory: Basilar crackles with wheeze Cardiovascular: Regular rate/rhythm, Normal S1 S2, Systolic murmur Gastrointestinal: Normal bowel sounds, Soft and benign, Non-distended, No tenderness Musculoskeletal: No clubbing, No tenderness, Swelling Neurological: patient with generalized weakness Medications List Reviewed: Yes Assessment & Plan - Problems (Diagnosis) (1) Acute hypoxic respiratory failure Current Visit: Yes Status: Acute (2) Heart failure with preserved ejection fraction Current Visit: Yes Status: Acute (3) Acute kidney injury superimposed on chronic kidney disease Current Visit: Yes Status: Acute (4) Idiopathic pulmonary fibrosis Current Visit: Yes Status: Acute (5) ESRD (end stage renal disease) Current Visit: Yes Status: Acute (6) Morbid obesity Current Visit: Yes Status: Acute (7) Obstructive sleep apnea Current Visit: Yes Status: Acute (8) Debility Current Visit: Yes Status: Acute (9) Pulmonary hypertension Current Visit: Yes Status: Acute (10) CAD (coronary artery disease) Current Visit: Yes Status: Acute (11) Diabetes Current Visit: No Status: Acute Diabetes mellitus type: other specified (including ANGEL) - Plan Continue with plan of care as mentioned below: 1. Acute hypoxic respiratory failure secondary to idiopathic pulmonary fibrosis and fluid overload related to acute renal failure; continue with IV steroids and neb treatments and continue with hemodialysis per Nephrology. She is more tachycardic and tachypneic today. Will curbside cardiology and pulmonology for additional recommendation. Patient's daughter wants her to restart OFEV pulmonary fibrosis medication. 2. ESRD / acute on chronic kidney disease; continue with monitor renal function closely. Patient on hemodialysis at this time as patient has progressed to ESRD rapidly. Hopefully this will be reversible but will at this time patient needs hemodialysis. Patient will probably need renal biopsy. Hemodialysis per nephrology 3. History of heart failure with preserved ejection fraction with moderate pulmonary hypertension; continue with diuresing. Continue monitoring volume status and diurese as necessary with hemodialysis as ordered. 4. Morbid obesity with metabolic syndrome; continue with strict blood pressure and blood sugar control 5. Obesity hypoventilation syndrome; CPAP nightly and BiPAP as needed 6. Continue Mucinex for cough 7. Gi and DVT prophylax Discharge Plan: Will discuss with daughter for alf, home health, home with hospice Plan to discharge in: - Advance Directives Does patient have a Living Will: No Does patient have a Durable POA for Healthcare: No - Code Status/Comfort Care Code Status Assessed: Yes Code Status: Full Code Critical Care: No Time Spent Managing PTS Care (In Minutes): 45
[2024-08-09] MEDS: HYDROCODONE/APAP 7.5/325 MG TAB PO PRN (22:43)
[2024-08-10 07:23] LABS: Albumin 2.1 g/dL (3.4-5.0); Anion Gap 9.1 mEq/L (5.0-15.0); Phosphorus 5.1 mg/dL (2.5-4.9); Potassium 4.1 mEq/L (3.5-5.1)
--- NOTE | 2024-08-10 11:20 | PN ---
Date of Progress Note: 08/10/2024 Subjective: The patient was admitted to the hospital with pulmonary renal syndrome. The patient was started on dialysis. The patient had advanced pulmonary fibrosis. For that reason, the patient did not undergo any kidney biopsy. The patient is dialysis dependent. Physical Examination: Vital Signs: Blood pressure 101/74, pulse of 100, afebrile. Chest: Crackles bilateral. Heart: S1, S2. Systolic murmur. Abdomen: Soft, nontender. Extremities: Trace edema. Neurologic: Alert. No focality. Laboratory Data: Hemoglobin 9.9. Sodium 132, potassium 4.1, bicarb 30, BUN 37, creatinine 5.5, calcium 8.2, phosphorus 5.1. Current Medications: The patient is on include IV iron, atorvastatin, Plavix, Epogen, Tylenol, Depakote, Zofran, pantoprazole, levothyroxine. Assessment And Plan: 1. Acute kidney injury secondary to pulmonary renal, dialysis dependent. We will continue dialysis Sunday, Sunday, Sunday. 2. Hypertension, controlled. Continue holding all blood pressure medication to avoid any low blood pressure during the dialysis. 3. 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 Follow up with Pulmonary. Continue dialysis. KOLE Voice ID: [id number] Report ID: [id number] JESSY
--- NOTE | 2024-08-10 14:31 | P.PN ---
Date of Service: 08/10/24 Subjective: Resting comfortably in bed. No acute events overnight. Remains tachycardic. Endorses constipation. Denies fevers and chills Review of systems: 10 point review of systems otherwise negative except as per HPI Physical Examination - Vital Signs Reviewed - Physical Exam General: Alert, In no apparent distress, Oriented x3, Resting comfortably Respiratory: Basilar crackles with wheeze Cardiovascular: Regular rate/rhythm, Normal S1 S2, Systolic murmur Gastrointestinal: Normal bowel sounds, Soft and benign, Non-distended, No tenderness Musculoskeletal: No clubbing, No tenderness, Swelling Neurological: patient with generalized weakness Medications List Reviewed: Yes Assessment & Plan - Problems (Diagnosis) (1) Acute hypoxic respiratory failure Current Visit: Yes Status: Acute (2) Heart failure with preserved ejection fraction Current Visit: Yes Status: Acute (3) Acute kidney injury superimposed on chronic kidney disease Current Visit: Yes Status: Acute (4) Idiopathic pulmonary fibrosis Current Visit: Yes Status: Acute (5) ESRD (end stage renal disease) Current Visit: Yes Status: Acute (6) Morbid obesity Current Visit: Yes Status: Acute (7) Obstructive sleep apnea Current Visit: Yes Status: Acute (8) Debility Current Visit: Yes Status: Acute (9) Pulmonary hypertension Current Visit: Yes Status: Acute (10) CAD (coronary artery disease) Current Visit: Yes Status: Acute (11) Diabetes Current Visit: No Status: Acute Diabetes mellitus type: other specified (including ANGEL) - Plan Continue with plan of care as mentioned below: 1. Acute hypoxic respiratory failure secondary to idiopathic pulmonary fibrosis and fluid overload related to acute renal failure; continue with IV steroids and neb treatments and continue with hemodialysis per Nephrology. She is more tachycardic and tachypneic today. Will curbside cardiology and pulmonology for additional recommendation. Patient's daughter wants her to restart OFEV pul monary fibrosis medication. 2. ESRD / acute on chronic kidney disease; continue with monitor renal function closely. Patient on hemodialysis at this time as patient has progressed to ESRD rapidly. Hopefully this will be reversible but will at this time patient needs hemodialysis. Patient will probably need renal biopsy. Hemodialysis per nephrology 3. History of heart failure with preserved ejection fraction with moderate pulmonary hypertension; continue with diuresing. Continue monitoring volume status and diurese as necessary with hemodialysis as ordered. 4. Morbid obesity with metabolic syndrome; continue with strict blood pressure and blood sugar control 5. Obesity hypoventilation syndrome; CPAP nightly and BiPAP as needed 6. Continue Mucinex for cough 7. Add senna for constipation 8. Gi and DVT prophylax Discharge Plan: I do not believe patient will be able to participate in inpatient rehab. Will discuss with daughter for correction, home health, home with hospice. Daughter wants to restart the patient on OFEV - Advance Directives Does patient have a Living Will: No Does patient have a Durable POA for Healthcare: No - Code Status/Comfort Care Code Status Assessed: Yes Code Status: Full Code Critical Care: No
[2024-08-10] MEDS: DOCUSATE NA/SENNA CONC 1 TAB PO PRN (14:51)
[2024-08-11 04:59] LABS: Albumin 2.1 g/dL (3.4-5.0); Anion Gap 9.5 mEq/L (5.0-15.0); Phosphorus 5.6 mg/dL (2.5-4.9); Potassium 4.5 mEq/L (3.5-5.1)
[2024-08-11] MEDS: ALBUMIN HUMAN 25% 100 ML IV ONE (13:30)
[2024-08-11] MEDS: EPOETIN ALFA 10,000 UNIT/ML VIAL IV SCH (14:00)
--- NOTE | 2024-08-12 01:10 | PN ---
Date of Progress Note: 08/11/2024 Chief Complaint: Pulmonary renal syndrome. The patient is dialysis dependent. The patient has adva nced pulmonary fibrosis. Review of Systems: Denies chest pain and palpitation. Physical Examination: Lungs: Diminished breath sound at bases. Heart: S1 and S2. Abdomen: Soft. Extremities: Slight edema. Impression And Plan: 1. Acute kidney injury, advanced chronic kidney disease. Continue dialysis on Sunday, Sunday, and Sunday. The patient remains dialysis dependent. 2. Hypertension, controlled. 3. 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 4. Follow up with Pulmonary Service. NIMISHA/MODL Voice ID: [id number] Report ID: [id number]
[2024-08-12 06:10] LABS: Albumin 2.5 g/dL (3.4-5.0); Anion Gap 9.6 mEq/L (5.0-15.0); Phosphorus 3.6 mg/dL (2.5-4.9); Potassium 4.6 mEq/L (3.5-5.1)
--- NOTE | 2024-08-12 08:34 | P.PN ---
Date of Service: 08/11/24 Subjective Chart has been reviewed. Events in the last 24 hrs have been noted. Patient continues to remain fairly stable at this point. Family has chosen to proceed with hospice care. Was a question about peritoneal dialysis that would have to touch base with nephrology regarding. Otherwise, patient and family are wanting to go home with hospice. Will go ahead and proceed as long as peritoneal dialysis catheter is not needed. She would be a poor candidate for any aggressive surgical intervention. Physical Examination - Vital Signs Reviewed - Physical Exam General: Alert, In no apparent distress, Oriented x3, Resting comfortably Respiratory: Basilar crackles but otherwise clear Cardiovascular: Regular rate/rhythm, Normal S1 S2, Systolic murmur Gastrointestinal: Normal bowel sounds, Soft and benign, Non-distended, No tenderness Musculoskeletal: No clubbing, No tenderness, Swelling Neurological: patient with generalized weakness Medications List Reviewed: Yes Assessment & Plan - Problems (Diagnosis) (1) Acute hypoxic respiratory failure Current Visit: Yes Status: Acute (2) Heart failure with preserved ejection fraction Current Visit: Yes Status: Acute (3) ESRD Current Visit: Yes Status: Chronic (4) Idiopathic pulmonary fibrosis Current Visit: Yes Status: Chronic (5) Metabolic syndrome Current Visit: Yes Status: Chronic (6) Morbid obesity Current Visit: Yes Status: Acute (7) Obstructive sleep apnea Current Visit: Yes Status: Acute (8) Debility Current Visit: Yes Status: Acute (9) Pulmonary hypertension Current Visit: Yes Status: Acute (10) CAD (coronary artery disease) Current Visit: Yes Status: Acute (11) Diabetes Current Visit: No Status: Acute Diabetes mellitus type: other specified (including ANGEL) - Plan Continue with plan of care as mentioned below: 1. Acute hypoxic respiratory failure secondary to idiopathic pulmonary fibrosis and fluid overload related to acute renal failure; continue with IV steroids and neb treatments and continue with hemodialysis per Nephrology. Family has chosen to proceed with hospice care. Continue with hemodialysis on hospice care. Comfort measures at this time. There was a question about peritoneal dialysis that I will touch base with nephrology regarding. Otherwise, she should be stable for discharge if that is not something we need to do prior to her going on hospice. 2. End-stage renal disease. Patient on hemodialysis at this time as patient has progressed to ESRD rapidly. Hopefully this will be reversible but will at this time patient needs hemodialysis. Patient will probably need renal biopsy. Hemodialysis per nephrology 3. History of heart failure with preserved ejection fraction with moderate pulmonary hypertension; continue with diuresing . Continue monitoring volume status and diurese as necessary with hemodialysis as ordered. 4. Morbid obesity with metabolic syndrome; continue with strict blood pressure and blood sugar control 5. Obesity hypoventilation syndrome; continue with BiPAP support at night and continue with monitoring ABG 6. Idiopathic pulmonary fibrosis; continue with nebs and steroids; continue with outpatient pulmonary follow-up 7. Gi and DVT prophylax Discharge Plan: IPR Plan to discharge in: Greater than 2 days - Advance Directives Does patient have a Living Will: No Does patient have a Durable POA for Healthcare: No - Code Status/Comfort Care Code Status Assessed: Yes Code Status: Full Code Critical Care: No Time Spent Managing PTS Care (In Minutes): 30
[2024-08-12] MEDS: NINTEDANIB 100 MG PO SCH (09:02)
[2024-08-12] MEDS: MAGIC MOUTHWASH 180 ML BTL PO PRN (11:50)
--- NOTE | 2024-08-12 18:02 | PN ---
Date of Progress Note: 08/11/2024 Subjective: The patient was admitted to the hospital with acute kidney injury secondary to pulmonary renal. The patient required to be initiated on dialysis. Patient tolerating the dialysis. Occasio nal low blood pressure, responds to sodium module and feeling well. The patient will be placed on ho spice with dialysis. Physical Examination: Vital Signs: Blood pressure 114/62, pulse of 95, afebrile. Chest: Faint crackles. Heart: S1, S2. Systolic murmur. Abdomen: Soft, nontender. Extremities: Trace edema. Neurologic: Alert. No focality. Laboratory Data: Hemoglobin 9.9, sodium 135, potassium 4.6, bicarb 29, BUN 20, creatinine 4.4, calci um 8.1, phosphorus 3.6. Current Medications: The patient on, it includes Plavix, Epogen, IV iron, atorvastatin, Tylenol, ins ulin. Assessment And Plan: 1. Acute kidney injury secondary to pulmonary renal, dialysis dependent. We will continue dialysis p er schedule and we will follow up the patient. The patient tolerating the dialysis very well. 2. Hypertension. Currently, low blood pressure. Keep holding blood pressure medication. We will fo llow up the patient. 3. Anemia of chronic kidney disease. Continue ETHAN. 4. Pulmonary renal syndrome. Continue steroid. Advanced fibrosis. The patient is going to be on ho spice. Follow up with Pulmonary. MERCEDES/JAN Voice ID: [id number] Report ID: [id number]
--- NOTE | 2024-08-13 12:13 | PN ---
Date of Progress Note: 08/13/2024 Subjective: The patient was admitted to the hospital with pulmonary renal syndrome. The patient was not a candidate for kidney biopsy as the patient's respiratory status was not stable. The patient w as initiated on dialysis, tolerating the dialysis, occasional low blood pressure with sodium module a nd low temperature. The patient has been tolerating the dialysis. Physical Examination: Vital Signs: When I saw the patient, blood pressure 133/63, pulse of 105, afebrile. Chest: Crackles, bilateral. Heart: S1, S2. Systolic murmur. Abdomen: Soft, nontender. Extremities: No edema. Neurologic: Alert. No focality. Laboratory Data: Hemoglobin 9.9. Sodium 135, potassium 4.6, bicarb 29, BUN 20, creatinine 4.4, calc ium 8.1, phosphorus 3.6. Current Medications: The patient is on include: 1. Epogen. 2. Plavix. 3. Heparin. 4. IV iron. 5. Atorvastatin. 6. Zofran. 7. Levothyroxine. Assessment And Plan: 1. End-stage renal disease secondary to pulmonary renal. We will continue dialysis Sunday, Sunday , Sunday and we will follow up the patient. 2. Hypotension during the dialysis. We will use sodium module, then we will monitor the patient. 3. Anemia of chronic kidney disease. Continue ETHAN. 4. Pulmonary fibrosis. Pulmonary renal syndrome as by Pulmonary. We will follow up. KOLE Voice ID: [id number] Report ID: [id number]
--- NOTE | 2024-08-14 06:37 | P.PN ---
Date of Service: 08/12/24 Subjective Family has been agreeable regarding hospice care. Plan is for patient to go on hospice with a diagnosis of end-stage lung disease secondary to idiopathic pulmonary fibrosis with increased oxygen requirements. Patient's long-term prognosis remains poor. Patient has chronic kidney disease and has progressed end-stage renal disease and she should be able to continue to proceed with hemodialysis for end-stage renal disease. Chair time apparently was not set up so were working on getting this done and was we do patient should be stable for discharge. Family is wanting her to go home with hospice as soon as possible. Physical Examination - Vital Signs Reviewed - Physical Exam General: Alert, In no apparent distress, Oriented x3, Resting comfortably Respiratory: Basilar crackles but otherwise clear Cardiovascular: Regular rate/rhythm, Normal S1 S2, Systolic murmur Gastrointestinal: Normal bowel sounds, Soft and benign, Non-distended, No tenderness Musculoskeletal: No clubbing, No tenderness, Swelling Neurological: patient with generalized weakness Medications List Reviewed: Yes Assessment & Plan - Problems (Diagnosis) (1) Acute hypoxic respiratory failure Current Visit: Yes Status: Acute (2) Heart failure with preserved ejection fraction Current Visit: Yes Status: Acute (3) ESRD Current Visit: Yes Status: Chronic (4) Idiopathic pulmonary fibrosis Current Visit: Yes Status: Chronic (5) Metabolic syndrome Current Visit: Yes Status: Chronic (6) Morbid obesity Current Visit: Yes Status: Acute (7) Obstructive sleep apnea Current Visit: Yes Status: Acute (8) Debility Current Visit: Yes Status: Acute (9) Pulmonary hypertension Current Visit: Yes Status: Acute (10) CAD (coronary artery disease) Current Visit: Yes Status: Acute (11) Diabetes Current Visit: No Status: Acute Diabetes mellitus type: other specified (including ANGEL) - Plan Continue with plan of care as mentioned below: 1. Acute hypoxic respiratory failure secondary to idiopathic pulmonary fibrosis and fluid overload related to acute renal failure; continue with steroids and neb treatments and continue with hemodialysis per Nephrology. Family has chosen to proceed with hospice care. Patient has end-stage lung disease and will benefit from hospice care. Patient's prognosis remains very poor as her lung pathology is not improving. The family is going to bring her medication for her pulmonary fibrosis from home and this will be approved. Otherwise, we will continue with hemodialysis on hospice care. Comfort measures at this time. There was a question about peritoneal dialysis that I will touch base with nephrology regarding. Otherwise, she should be stable for discharge if that is not something we need to do prior to her going on hospice. 2. End-stage renal disease. Patient on hemodialysis at this time as patient has progressed to ESRD rapidly. Hopefully this will be reversible but will at this time patient needs hemodialysis. Hemodialysis per nephrology. Consideration for peritoneal dialysis at discharge as well. 3. History of heart failure with preserved ejection fraction with moderate pulmonary hypertension; continue with diuresing . Continue monitoring volume status and diurese as necessary with hemodialysis as ordered. 4. Morbid obesity with metabolic syndrome; continue with strict blood pressure and blood sugar control 5. Obesity hypoventilation syndrome; continue with BiPAP support at night and continue with monitoring ABG 6. Idiopathic pulmonary fibrosis which has progressed end-stage lung disease; If patient's 2nd agent will benefit from a lung transplant; however, patient family is proceed with hospice care. Continue with nebs and steroids; continue with outpatient pulmonary follow-up 7. Gi and DVT prophylax Discharge Plan: IPR Plan to discharge in: Greater than 2 days - Advance Directives Does patient have a Living Will: No Does patient have a Durable POA for Healthcare: No - Code Status/Comfort Care Code Status Assessed: Yes Code Status: Full Code Critical Care: No Time Spent Managing PTS Care (In Minutes): 30
--- NOTE | 2024-08-14 06:39 | P.PN ---
Date of Service: 08/13/24 Subjective Awaiting for completion of hospice paperwork and equipment to be completed; chair time also needs to be completed as well as transportation. Physical Examination - Vital Signs Reviewed - Physical Exam General: Alert, In no apparent distress, Oriented x3, Resting comfortably Respiratory: Basilar crackles but otherwise clear Cardiovascular: Regular rate/rhythm, Normal S1 S2, Systolic murmur Gastrointestinal: Normal bowel sounds, Soft and benign, Non-distended, No tenderness Musculoskeletal: No clubbing, No tenderness, Swelling Neurological: patient with generalized weakness Medications List Reviewed: Yes Assessment & Plan - Problems (Diagnosis) (1) Acute hypoxic respiratory failure Current Visit: Yes Status: Acute (2) Heart failure with preserved ejection fraction Current Visit: Yes Status: Acute (3) ESRD Current Visit: Yes Status: Chronic (4) Idiopathic pulmonary fibrosis Current Visit: Yes Status: Chronic (5) Metabolic syndrome Current Visit: Yes Status: Chronic (6) Morbid obesity Current Visit: Yes Status: Acute (7) Obstructive sleep apnea Current Visit: Yes Status: Acute (8) Debility Current Visit: Yes Status: Acute (9) Pulmonary hypertension Current Visit: Yes Status: Acute (10) CAD (coronary artery disease) Current Visit: Yes Status: Acute (11) Diabetes Current Visit: No Status: Acute Diabetes mellitus type: other specified (including ANGEL) - Plan Continue with plan of care as mentioned below: 1. Acute hypoxic respiratory failure secondary to idiopathic pulmonary fibrosis and fluid overload related to acute renal failure; continue with steroids and neb treatments and continue with hemodialysis per Nephrology. Family has chosen to proceed with hospice care. Patient has end-stage lung disease and will benefit from hospice care. Patient's prognosis remains very poor as her lung pathology is not improving. The family is going to bring her medication for her pulmonary fibrosis from home and this will be approved. Otherwise, we will continue with hemodialysis on hospice care. Comfort measures at this time. There was a question about peritoneal dialysis that I will touch base with nephrology regarding. Otherwise, she should be stable for discharge if that is not something we need to do prior to her going on hospice. 2. End-stage renal disease. Patient on hemodialysis at this time as patient has progressed to ESRD rapidly. Hopefully this will be reversible but will at this time patient needs hemodialysis. Hemodialysis per nephrology. Consideration for peritoneal dialysis at discharge as well. 3. History of heart failure with preserved ejection fraction with moderate pulmonary hypertension; continue with diuresing . Continue monitoring volume status and diurese as necessary with hemodialysis as ordered. 4. Morbid obesity with metabolic syndrome; continue with strict blood pressure and blood sugar control 5. Obesity hypoventilation syndrome; continue with BiPAP support at night and continue with monitoring ABG 6. Idiopathic pulmonary fibrosis which has progressed end-stage lung disease; If patient's 2nd agent will benefit from a lung transplant; however, patient family is proceed with hospice care. Continue with nebs and steroids; continue with outpatient pulmonary follow-up 7. Gi and DVT prophylax Discharge Plan: HOSPICE at HOME Plan to discharge in: Greater than 2 days - Advance Directives Does patient have a Living Will: No Does patient have a Durable POA for Healthcare: No - Code Status/Comfort Care Code Status Assessed: Yes Code Status: Full Code Critical Care: No Time Spent Managing PTS Care (In Minutes): 30
[2024-08-14 10:51] LABS: HBsAG Nonreactive Report Report; Hepatitis B Core IgM Nonreactive (Nonreactive); Hepatitis B surface AG Interp. Nonreactive (Nonreactive); Hepatitis C Virus Ab Nonreactive (Nonreactive)
--- NOTE | 2024-08-14 11:59 | PN ---
Date of Progress Note: 08/14/2024 Subjective: The patient was admitted to the hospital with pulmonary renal syndrome. The patient did not undergo kidney biopsy because of the respiratory status and advanced lung fibrosis. With poor prognosis, the patient started on steroid. For her pulmonary, the patient started on dialysis, tolerating the dialysis. Physical Examination: Vital Signs: Blood pressure 107/52, pulse of 105, afebrile. Chest: Crackles, bilateral. Heart: S1, S2 regular. Abdomen: Soft, nontender. Extremities: No edema. Neurologic: Alert. No focality. Laboratory Data: Hemoglobin 9.9. Sodium 135, potassium 4.6, bicarb 29, BUN 20, creatinine 4.4, calcium 8.1, phosphorus 3.6. Current Medications: The patient is on include Plavix, Epogen, IV iron, atorvastatin, Megace, [place], pantoprazole, levothyroxine, insulin. Assessment And Plan: 1. End-stage renal disease secondary to pulmonary renal, dialysis dependent, anuric. We will continue dialysis Sunday, Sunday, Sunday. 2. Hypertension. Currently, blood pressure on the lower side. Keep holding all blood pressure medication. 3. Nephrotic range of proteinuria secondary to pulmonary renal. Could not tolerate any of the blood pressure medication. We will consider currently as outpatient. 4. Pulmonary fibrosis with pulmonary renal syndrome. Follow up with Pulmonary. The patient is going to be discharged on hospice. With dialysis, the patient cleared from the Renal standpoint for discharge planning. Time spent examining the patient [id number] reviewing data lab and the radiology placing orders or discussing the case with the patient discussing the case with the meat team lead including hospitalist and nursing staff more than 55- minute KOLE Voice ID: [id number] Report ID: [id number] JESSY
[2024-08-14] MEDS: MINERAL OIL 30 ML UCUP PO ONE (18:39)
[2024-08-14] MEDS: HYDROCORTISONE ACETATE 25MG SUPP PR ONE (18:40)
[2024-08-15] MEDS: HYDROCORTISONE SUC 100 MG INJ IV ONE (09:27)
[2024-08-15] MEDS: ALBUMIN HUMAN 25% 100 ML IV ONE (09:27)
[2024-08-15] MEDS: ONDANSETRON 4 MG/2 ML VIAL IV ONE ×2 (15:01→23:35)
[2024-08-15] MEDS: EPOETIN ALFA 10,000 UNIT/ML VIAL IV SCH (17:00)
--- NOTE | 2024-08-15 22:05 | PN ---
Date of Progress Note: 08/15/2024 Chief Complaint: Acute on chronic kidney injury. Subjective: The patient was admitted to the hospital because of severe dyspnea. She has pulmonary r enal syndrome. She is undergoing dialysis. The patient did not undergo kidney biopsy because of res piratory status and advanced lung fibrosis. The patient has overall poor prognosis. She was started on steroid treatment for pulmonary fibrosis. Pulmonary service is following patient. Review of Systems: Denies chest pain, palpitation. Physical Examination: Chest: Crackles bilaterally. Heart: S1, S2. Abdomen: Soft, benign. Extremities: No edema. Impression And Plan: 1. End-stage renal disease, acute kidney injury advanced to end-stage renal disease. There is no marisabel dence of renal function recovery. Continue dialysis on Sunday, Sunday, Sunday. 2. Hypertension. Adjust medication according to blood pressure log. Currently, blood pressure medic ation on hold. 3. 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 The patient cannot tolerate bl ood pressure medication. Consider to start low dose of angiotensin receptor kathleen when systolic bl ood pressure is over 130. 4. Pulmonary fibrosis, pulmonary renal syndrome. Convention Planner is following patient. NIMISHA/MODL Voice ID: [id number] Report ID: [id number]
[2024-08-16] MEDS: NA CHLORIDE 0.9% 1,000 ML ONE (10:17)
[2024-08-16] MEDS: HYDROCORTISONE SUC 100 MG INJ ONE (10:25)
--- NOTE | 2024-08-17 01:37 | PN ---
Date of Progress Note: 08/16/2024 Chief Complaint: Acute on chronic kidney injury, end-stage renal disease. There is no evidence of r enal function recovery. History: The patient was admitted to the hospital because of dyspnea. She has advanced pulmonary fi brosis. Pulmonary Service is following. The patient developed pulmonary renal syndrome. She is ann lysis dependent. She has tunneled dialysis catheter. Review of Systems: Denies chest pain, palpitations. Physical Examination: Lungs: Clear to auscultation bilaterally. No wheezing, although there are some crackles at bases. Abdomen: Soft, benign, nontender. Extremities: Minimal ankle edema. Impression And Plan: 1. End-stage renal disease. The patient is dialysis dependent. Continue dialysis on Sunday, , Sunday. Monitor electrolytes, avoid nephrotoxic medication, avoid high potassium intake. 2. Hypertension. Monitor blood pressure, medication on hold due to episodes of hypotension. 3. 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 The patient cannot tolerate an giotensin-receptor kathleen due to hypotensive episodes. 4. 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 NIMISHA/MODL Voice ID: [id number] Report ID: [id number]
--- NOTE | 2024-08-17 20:45 | PN ---
Date of Progress Note: 08/17/2024 Chief Complaint: Acute on chronic kidney injury, end-stage renal disease. Subjective: There is no evidence of renal function recovery. Patient remains dialysis dependent. S he is undergoing dialysis 3 times per week. Patient has severe pulmonary fibrosis, chronic respirato ry failure with hypoxemia, and she had been seen by Pulmonary Service. Review of Systems: Denies complaints. Physical Examination: Lungs: Few rhonchi. Heart: S1, S2. Abdomen: Soft. Extremities: No edema. Impression And Plan: 1. End-stage renal disease. The patient will continue dialysis 3 times per week on Sunday, , and Sunday. Monitor electrolyte panel and avoid nephrotoxic medication. Avoid high potassium in take. 2. Hypertension, controlled. Continue blood pressure medications. Medications recently were held d ue to episodes of hypotension. Monitor blood pressure log. 3. 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 Patient cannot tolerate angiot ensin-receptor kathleen due to hypotensive episodes. 4. Pulmonary fibrosis. Assistant Professor Of Theater is following. NIMISHA/JAN Voice ID: [id number] Report ID: [id number]
--- NOTE | 2024-08-17 23:28 | P.PN ---
Date of Service: 08/14/24 Subjective Awaiting for hospice placement; records are pending. Physical Examination - Vital Signs Reviewed - Physical Exam General: Alert, In no apparent distress, Oriented x3, Resting comfortably Respiratory: Basilar crackles but otherwise clear Cardiovascular: Regular rate/rhythm, Normal S1 S2, Systolic murmur Gastrointestinal: Normal bowel sounds, Soft and benign, Non-distended, No tenderness Musculoskeletal: No clubbing, No tenderness, Swelling Neurological: patient with generalized weakness Medications List Reviewed: Yes Assessment & Plan - Problems (Diagnosis) (1) Acute hypoxic respiratory failure Current Visit: Yes Status: Acute (2) Heart failure with preserved ejection fraction Current Visit: Yes Status: Acute (3) ESRD Current Visit: Yes Status: Chronic (4) Idiopathic pulmonary fibrosis Current Visit: Yes Status: Chronic (5) Metabolic syndrome Current Visit: Yes Status: Chronic (6) Morbid obesity Current Visit: Yes Status: Acute (7) Obstructive sleep apnea Current Visit: Yes Status: Acute (8) Debility Current Visit: Yes Status: Acute (9) Pulmonary hypertension Current Visit: Yes Status: Acute (10) CAD (coronary artery disease) Current Visit: Yes Status: Acute (11) Diabetes Current Visit: No Status: Acute Diabetes mellitus type: other specified (including ANGEL) - Plan Continue with plan of care as mentioned below: 1. Acute hypoxic respiratory failure secondary to idiopathic pulmonary fibrosis and fluid overload related to acute renal failure; continue with steroids and neb treatments and continue with hemodialysis per Nephrology. Family has chosen to proceed with hospice care. Patient has end-stage lung disease and will benefit from hospice care.Otherwise, she should be stable for discharge if that is not something we need to do prior to her going on hospice. 2. End-stage renal disease. Patient on hemodialysis at this time as patient has progressed to ESRD rapidly. Hopefully this will be reversible but will at this time patient needs hemodialysis. Hemodialysis per nephrology. Consideration for peritoneal dialysis at discharge as well. 3. History of heart failure with preserved ejection fraction with moderate pulmonary hypertension; continue with diuresing . Continue monitoring volume status and diurese as necessary with hemodialysis as ordered. 4. Morbid obesity with metabolic syndrome; continue with strict blood pressure and blood sugar control 5. Obesity hypoventilation syndrome; continue with BiPAP support at night and continue with monitoring ABG 6. Idiopathic pulmonary fibrosis which has progressed end-stage lung disease; If patient's 2nd agent will benefit from a lung transplant; however, patient family is proceed with hospice care. Continue with nebs and steroids; continue with outpatient pulmonary follow-up 7. Gi and DVT prophylax Discharge Plan: HOSPICE at HOME Plan to discharge in: Greater than 2 days - Advance Directives Does patient have a Living Will: No Does patient have a Durable POA for Healthcare: No - Code Status/Comfort Care Code Status Assessed: Yes Code Status: Full Code Critical Care: No Time Spent Managing PTS Care (In Minutes): 25
--- NOTE | 2024-08-18 10:52 | P.PN ---
Date of Service: 08/18/24 Subjective: patient getting minimal rest during the night Seen on nonrebreather and awakening only briefly family updated at bedside hospice being setup dialysis today Discussed with nephrology Physical Exam: Gen: Alert, NAD, Orientedx3 CV: Regular rate and rhythm, systolic murmur Pulm: Nonlabored respirations on room air, basilar crackles Abdomen: Soft, nontender, nondistended Neuro: Generalized weakness Problem List: Idiopathic pulmonary fibrosis Fluid overload Acute hypoxic respiratory failure secondary to the above ESRD on HD MWF Chronic CHF Pulmonary hypertension Obesity hypoventilation syndrome Hx CAD Idiopathic pulmonary fibrosis Fluid overload Acute hypoxic respiratory failure secondary to the above ESRD on HD MWF Continue nebs, pain control, supportive care, supplemental nutrition PRN senokot/glycolax as needed for constipation Continue IV iron 125mg (07/30-) Nephrology is following - Dialysis per nephro today and then will be discharged to have outpatient dialysis set up on Family have chosen to proceed with hospice. Currently in the process of being setup ss/cm consulted for dispo planning continue PT Chronic CHF Pulmonary hypertension continue diuresis with with HD per nephro Obesity hypoventilation syndrome BiPAP/CPAP at night Code: DNR Dispo: Hospice Time spent: 45 minutes spent coordinating care with the family, interdisciplinary team, monitoring clinical status, and adjusting treatment plan as needed.
[2024-08-18 11:58] LABS: Anion Gap 15.7 mEq/L (5.0-15.0); Potassium 3.7 mEq/L (3.5-5.1)
[2024-08-18] MEDS ORDERED: LORazepam 2 MG/ML VIAL IV PRN (13:44)
--- NOTE | 2024-08-19 02:45 | PN ---
Date of Progress Note: 08/18/2024 Chief Complaint: Acute on chronic kidney injury resulted in end-stage renal disease. Subjective: Renal function has not improved. The patient remains dialysis dependent. The patient i s to have dialysis today and dialysis was initiated, although due to altered mental status, lethargy, patient was taken off dialysis and plan was discussed with primary team. The patient has multiple m edical problems including idiopathic pulmonary fibrosis, chronic congestive heart failure, pulmonary hypertension, obesity hypoventilation syndrome. The patient is to have a hospice initiated and hospi was set up. Dialysis today was scheduled, but was not completed because of altered mental status. The patient was very lethargic. Review of Systems: Unobtainable. Physical Examination: Lungs: Crackles present, few rhonchi. Heart: S1, S2. Abdomen: Soft, nondistended. Extremities: No edema. Impression And Plan: 1. End-stage renal disease. Hemodialysis on Sunday, Sunday, Sunday. 2. Chronic congestive heart failure. 3. Pulmonary hypertension. 4. Obesity hypoventilation syndrome. 5. Coronary artery disease. 6. Fluid overload. 7. Hypoxemic acute on chronic respiratory failure. 8. The patient was to have next dialysis in outpatient setting tomorrow, although primary team is anil nning to monitor patient in the hospital because of altered mental status today. Dialysis was termin ated early due to altered mental status. The patient has advanced pulmonary fibrosis. Hospice service will be set for patient according to primary team's rec ommendation. NIMISHA/JAN Voice ID: [id number] Report ID: [id number]
[2024-08-19] MEDS: D10W 125 ML IV PRN (09:28)
[2024-08-19] MEDS: MORPHINE 2 MG/ML SYR IV PRN ×2 (11:06→14:34)
--- NOTE | 2024-08-19 15:09 | P.PN ---
Date of Service: 08/19/24 Subjective: Continues to be obtunded Breathing is more labored she appears very tired Family updated at bedside We discussed pursuing full comfort care measures Currently on hospice Physical Exam: Gen: Alert, NAD, Orientedx3 CV: Regular rate and rhythm, systolic murmur Pulm: Nonlabored respirations on room air, basilar crackles Abdomen: Soft, nontender, nondistended Neuro: Generalized weakness Problem List: Idiopathic pulmonary fibrosis Fluid overload Acute hypoxic respiratory failure secondary to the above ESRD on HD MWF Chronic CHF Pulmonary hypertension Obesity hypoventilation syndrome Hx CAD Idiopathic pulmonary fibrosis Fluid overload Acute hypoxic respiratory failure secondary to the above ESRD on HD MWF Continue nebs, pain control, supportive care, supplemental nutrition PRN senokot/glycolax as needed for constipation Continue IV iron 125mg (07/30-) Nephrology is following - Dialysis per nephro today and then will be discharged to have outpatient dialysis set up on Family have chosen to proceed with hospice. Currently in the process of being setup Will likely benefit from inpatient hospice Comfort care measures continue PT Chronic CHF Pulmonary hypertension continue diuresis with with HD per nephro Obesity hypoventilation syndrome BiPAP/CPAP at night Code: DNR Dispo: Hospice Time spent: 45 minutes spent coordinating care with the family, interdisciplinary team, monitoring clinical status, and adjusting treatment plan as needed.
[2024-08-19 20:55] VITALS: O2SAT 91
--- NOTE | 2024-08-20 01:12 | PN ---
Subjective: No overnight events. Planned for dialysis today. Objective: Vital Signs: Temperature 97.6, pulse rate 97, blood pressure 122/73. Neck: Awake, alert, on oxygen. Neck is supple. No elevated JVD. Heart: Regular rate and rhythm. Normal S1, S2. Chest: Decreased air entry to the bases. Abdomen: Soft, nontender. Extremities: Edema. Laboratory Data: White count 8.5, hemoglobin 9.9, and platelet 258. Sodium 134, potassium 3.7, BUN 61, creatinine 6. Assessment And Plan: This is a 74-year-old woman was admitted for advanced pulmonary fibrosis, was a dmitted for shortness of breath, had acute kidney injury and oliguria. Started on dialysis. The pat ient had interdialytic hypotension on Sunday, days ago. The patient noticed to be letharg ic and was off oxygen with hypoxia. She could not tolerate dialysis on Sunday. 1. Acute kidney injury, anuric. The patient could not tolerate dialysis on Sunday due to hypotension . We will try dialysis again tomorrow. I discussed goal of care with family. If the patient is negin ble to tolerate dialysis tomorrow, then it is better to consider goals of care and to consider comfor t care on home dialysis. Renal dose medication. Avoid NSAID and contrast. 2. Metabolic encephalopathy, possibly due to anoxic brain injury. Continue supportive care. 3. Advanced pulmonary fibrosis. Continue oxygen and inhalers. 4. Anemia of chronic disease, status post IV iron. Continue Epogen. Monitor H and H. Thanks for allowing me to participate in the patient's care. Total time spent 55 minutes including documentation, reviewing labs, and placing orders. Patient overall h as guarded to poor prognosis. AA/MODL Voice ID: [id number] Report ID: [id number]
--- NOTE | 2024-08-20 11:11 | PN ---
Date of Progress Note: 08/20/2024 Subjective: The patient was admitted to the hospital with pulmonary renal syndrome. The patient deteriorated with severe altered mental status. The patient poorly respond. The patient not tolerating dialysis. Physical Examination: Vital Signs: Blood pressure 97/30, pulse of 89, afebrile. Chest: Crackles, bilateral. Heart: S1, S2. Systolic murmur. Abdomen: Soft, nontender. Extremities: No edema. Neuro: The patient only open eyes, not responding. Laboratory Data: WBC 8.5, hemoglobin 9.9. Sodium 134, potassium 3.7, bicarb 23, BUN 61, creatinine 6, calcium 7.9. Current Medications: The patient is on include: 1. Plavix. 2. Epogen. 3. IV iron. 4. Insulin. 5. Levothyroxine. Assessment And Plan: 1. Acute kidney injury secondary to pulmonary renal, oliguric. The patient is not tolerating dialysis. I had discussion with the daughter by bedside given the condition of the patient and poor prognosis with severe altered mental status, it is going to be more challenging on her to have session of dialysis and even though the patient not tolerating the dialysis, family elect to backup on the dialysis. Continue with hospice, we will appreciate and obey. Family wishes and we will continue to monitor clinically. 2. Hypertension. Currently, blood pressure on the lower side. Keep holding all blood pressure medication. 3. Respiratory failure secondary to severe pulmonary fibrosis. Continue supportive treatment. 4. Altered mental status, metabolic as by Primary. Time spent examining the patient [id number] reviewing data lab and the radiology placing orders or discussing the case with the patient discussing the case with the steam presser including hospitalist and nursing staff more than 55- minute KOLE Voice ID: [id number] Report ID: [id number] JESSY
[2024-08-20] MEDS: HYDROMORPHONE HCL 0.5 MG/0.5 ML INJ IV PRN (11:45)
[2024-08-20] MEDS: LORazepam 2 MG/ML VIAL IV PRN (13:54)
[2024-08-20] MEDS: MORPHINE 2 MG/ML SYR IV PRN (14:26)
--- NOTE | 2024-08-20 14:26 | P.PN ---
Date of Service: 08/20/24 Subjective: Breathing has become more agonal On non-rebreather Her daughter Arabella is at bedside We are no longer attempting hemodialysis Comfort care measures are in place Ongoing hospice care Physical Exam: Gen: Alert, NAD, Orientedx3 CV: Regular rate and rhythm, systolic murmur Pulm: Nonlabored respirations on room air, basilar crackles Abdomen: Soft, nontender, nondistended Neuro: Generalized weakness Problem List: Idiopathic pulmonary fibrosis Fluid overload Acute hypoxic respiratory failure secondary to the above ESRD on HD MWF Chronic CHF Pulmonary hypertension Obesity hypoventilation syndrome Hx CAD Idiopathic pulmonary fibrosis Fluid overload Acute hypoxic respiratory failure secondary to the above ESRD on HD MWF Comfort care measures with ongoing hospice Continue IV Dilaudid, IV Ativan, and IV morphine PRN senokot/glycolax as needed for constipation Nephrology is following and appreciate recommendations Chronic CHF Pulmonary hypertension continue diuresis with with HD per nephro Obesity hypoventilation syndrome BiPAP/CPAP at night Code: DNR Dispo: Hospice Time spent: 45 minutes spent coordinating care with the family, interdisciplinary team, monitoring clinical status, and adjusting treatment plan as needed.
[2024-08-20 22:53] VITALS: BP 51/21; TEMP 0
== END 2024-08-21 04:16 | disposition expired ==
LOC: ER 15:55 → ERHOLD 19:31 → 2ND 21:13 → 3RD-ICU 07-19 15:28 → 2ND 08-01 22:49
PROVIDERS: ADMIT Family Medicine; ATTEND Family Medicine
PROC: 5A09457 Assistance with Respiratory Ventilation, 24-96 Consecutive Hours, Continuous Positive Airway Pressure (ICD-10-PCS; 2024-07-14)
PROC: 02HV33Z Insertion of Infusion Device into Superior Vena Cava, Percutaneous Approach (ICD-10-PCS; 2024-07-18)
PROC: 5A1D70Z Performance of Urinary Filtration, Intermittent, Less than 6 Hours Per Day (ICD-10-PCS; 2024-07-18)
PROC: 0JH63XZ Insertion of Tunneled Vascular Access Device into Chest Subcutaneous Tissue and Fascia, Percutaneous Approach (ICD-10-PCS; principal; 2024-07-18 08:30)
PROC: 5A0955A Assistance with Respiratory Ventilation, Greater than 96 Consecutive Hours, High Flow/Velocity Cannula (ICD-10-PCS; 2024-07-21)
DX: I13.2 Hypertensive heart and chronic kidney disease with heart failure and with stage 5 chronic kidney disease, or end stage renal disease (principal); G93.41 Metabolic encephalopathy; I21.A1 Myocardial infarction type 2; I50.33 Acute on chronic diastolic (congestive) heart failure; J18.9 Pneumonia, unspecified organism; N18.6 End stage renal disease; J96.21 Acute and chronic respiratory failure with hypoxia; J96.22 Acute and chronic respiratory failure with hypercapnia; N17.9 Acute kidney failure, unspecified; N39.0 Urinary tract infection, site not specified; E87.1 Hypo-osmolality and hyponatremia; N25.81 Secondary hyperparathyroidism of renal origin; E87.4 Mixed disorder of acid-base balance; Z68.41 Body mass index [BMI] 40.0-44.9, adult; E66.2 Morbid (severe) obesity with alveolar hypoventilation; G93.1 Anoxic brain damage, not elsewhere classified; E87.5 Hyperkalemia; E83.42 Hypomagnesemia; E11.22 Type 2 diabetes mellitus with diabetic chronic kidney disease; E11.40 Type 2 diabetes mellitus with diabetic neuropathy, unspecified; D63.1 Anemia in chronic kidney disease; D50.9 Iron deficiency anemia, unspecified; D69.6 Thrombocytopenia, unspecified; E88.810 Metabolic syndrome; J84.112 Idiopathic pulmonary fibrosis; I27.20 Pulmonary hypertension, unspecified; E88.09 Other disorders of plasma-protein metabolism, not elsewhere classified; I25.10 Atherosclerotic heart disease of native coronary artery without angina pectoris; R31.9 Hematuria, unspecified; Z66 Do not resuscitate; Z95.1 Presence of aortocoronary bypass graft; Z95.5 Presence of coronary angioplasty implant and graft; Z79.82 Long term (current) use of aspirin; Z79.02 Long term (current) use of antithrombotics/antiplatelets; Z90.49 Acquired absence of other specified parts of digestive tract; Z79.890 Hormone replacement therapy; Z79.899 Other long term (current) drug therapy; Z51.5 Encounter for palliative care
CPT/HCPCS: 36415; 71045; 71250; 74176; 76000; 76377; 76770; 80048; 80053; 80061; 80069; 80074; 80076; 81001; 82550; 82570; 82728; 82805; 82947; 83036; 83520; 83540; 83605; 83735; 83880; 83970; 84100; 84132; 84145; 84156; 84165; 84443; 84466; 84484; 84550; 85025; 85044; 85610; 85730; 86021; 86022; 86038; 86140; 86160; 86225; 86430; 86704; 86705; 86706; 86803; 87040; 87077; 87086; 87088; 87186; 87340; 90935; 93005; 93306; 94640; 94660; 94760; 96374; 97110; 97161; 97165; 97530; 99285; A4216; C1752; J0690; J0696; J1100; J1171; J1644; J1720; J1815; J1938; J2003; J2250; J2270; J2405; J2704; J2916; J2919; J3010; J7030; J7040; J7050; J7512; J7605; J7613; J7644; P9047; Q4081